=== PATIENT | male | born 1970 | race Caucasian/White ===

== ENCOUNTER 2017-11-02 10:26 | Inpatient (IN) | payer MEDICARE ==
[2017-11-02 10:52] LABS: #Eosinphils 0.1 thou/uL (0.0-0.7); #Lymphocytes 0.6 thou/uL (1.20-3.40); #Monocytes 0.7 thou/uL (0.11-0.59); %Basophils 0.4 % (0.0-1.0); %Eosinophils 1.5 % (0.0-10.0); %Lymphocytes 6.3 % (21.0-51.0); %Monocytes 7.7 % (0.0-10.0); %Neutrophils 84.1 % (42.0-75.0); Hemoglobin 12.8 g/dL (14.0-18.0); Mean Corpuscular HGB CONC 31.9 g/dL (32.0-36.0); Mean Corpuscular Hemoglobin 25.7 pg (27.0-31.0); Mean Corpuscular Volume 80.7 fl (80.0-94.0); Mean Platelet Volume 8.9 fL (7.4-10.4); Platelet Count 167 thou/uL (130-400); RBC Distribution Width 16.7 % (11.5-14.5); Red Blood Cell (RBC) Count 4.98 mill/uL (4.70-6.10); White Blood Cell (WBC) Count 9.5 thou/uL (4.8-10.8)
--- NOTE | 2017-11-02 10:56 | RAD ---
SINGLE VIEW CHEST: Date: 11/02/17 COMPARISON: 06/10/17. HISTORY: Chest pain. FINDINGS: Single view of the chest shows an enlarged but stable cardiomediastinal silhouette. Pacemaker is unch anged in position. There is no evidence of consolidation, mass, or pleural effusion. IMPRESSION: Stable cardiomegaly without acute cardiopulmonary process. POS: JAZMÍN
[2017-11-02 10:58] LABS: PTT 27.6 SEC (22.9-36.1); Prothrombin Time 13.5 SEC (12.0-14.7)
[2017-11-02 11:13] LABS: ALT (SGPT) 30 U/L (8-55); AST (SGOT) 24 U/L (5-34); Albumin 3.9 g/dL (3.5-5.0); Alkaline Phosphatase 105 U/L (40-150); Anion Gap 19 mmol/L (10-20); BUN (Urea Nitrogen) 81 mg/dL (8.9-20.6); Bilirubin, Total 0.6 mg/dL (0.2-1.2); CK (CPK) 30 U/L (30-200); Calc. Creatinine Clearance 0 mL/min (70-130); Calcium 10.9 mg/dL (7.8-10.44); Carbon Dioxide 21 mmol/L (22-29); Chloride 102 mmol/L (98-107); Estimated GFR-MDRD 9; Globulin 2.7 g/dL (2.4-3.5); Glucose 104 mg/dL (70-105); Potassium 3.7 mmol/L (3.5-5.1); Protein, Total 6.6 g/dL (6.0-8.3); Sodium 138 mmol/L (136-145)
[2017-11-02 11:17] LABS: CKMB 1.7 ng/mL (0-6.6); Troponin I 0.088 ng/mL (< 0.028)
[2017-11-02] MEDS ORDERED: Amiodarone In Dextrose 200 ML IVPB SCH ×2 (12:00→15:56)
[2017-11-02] MEDS ORDERED: Amiodarone HCl 450 MG, Admixture Fee 1 EACH in Dextrose 5% in Water 250 ML IVPB SCH ×3 (12:30)
[2017-11-02] MEDS ORDERED: Furosemide 40 MG/4 ML VIAL ONE (12:35)
--- NOTE | 2017-11-02 13:26 | CON ---
DATE OF CONSULTATION: 11/02/2017 REASON FOR CONSULTATION: Stage 5 chronic kidney disease. HISTORY OF PRESENT ILLNESS: This is a 46-year-old gentleman with a history of CKD stage 5 who presen mark to the hospital with a 1-2 day history of chest pain. The patient had aggravating or relieving f actor. Denied any nausea, vomiting or chest pain. PAST MEDICAL HISTORY: Significant for hypertension, CKD stage 5, history of CVA, history of coronary artery disease, pacemaker, and cardiac stents. HOME MEDICATIONS: List reviewed. HOSPITAL MEDICATIONS: Reviewed. ALLERGIES: Reviewed. REVIEW OF SYSTEMS: Fifteen point review of systems was performed and negative except positives noted above. General: Weakness-. Head: Headache-. Neck: No swelling or lumps. Nose: No epistaxis o r discharge. Eyes: No diplopia or pain. Respiratory: Dyspnea-. Cardiovascular: Chest pain-. Ga strointestinal: Nausea-. Genitourinary/Gynecology: Hematuria-. Musculoskeletal: No joint pain. Neuropsychiatric Systems: No suicidal ideation. No ideation. Skin: Denies any rash or ulcer. Con stitutional: No fever or chills. PHYSICAL EXAMINATION: GENERAL: Patient is awake, alert. VITAL SIGNS: Afebrile, pulse 80, breathing at 16, blood pressure 115/70. HEAD/NECK: Normocephalic. Atraumatic. EYES: EOMI. No deformity. EARS: Clear. No ulcers. NOSE: Intact. No lesions. MOUTH: Clear. No discharge. THROAT: Clear. No exudate. LUNGS: Clear. No crackles. CARDIAC: S1, S2. No rub. ABDOMEN: Benign. BS+. GENITALIA/RECTUM: Esquivel absent. BACK/EXTREMITIES: Edema 0+ Ulcer- The patient has no edema. NEUROLOGICAL: Alert and motor intact. SKIN: Rash- Bruise- LYMPHATICS: Edema- Ulcer- LABORATORY DATA: Creatinine is more than 60. ASSESSMENT AND PLAN: 1. Chronic kidney disease. No urgent indication for dialysis. 2. Hyperkalemia, improved. 3. Anemia, improved. 4. Medications based on glomerular filtration rate are appropriate. No urgent indication for dialys is.
--- NOTE | 2017-11-02 13:50 | HP ---
PRIMARY CARE PHYSICIAN: [place] call admission. The patient's primary care physician is in [place], [place]. His name plate stamper and spectrographer are also in [place], [place]. REASON FOR ADMISSION: Chest pain, ventricular tachycardia, frequent PVCs. HISTORY OF PRESENT ILLNESS: A 46-year-old male who has history of ESRD. He was on dialysis before, but he is off dialysis since 2009. He has diastolic heart failure based on our echocardiography in . This morning, when he was resting and watching TV, all of suddenly he got substernal chest pain which was radiating to left upper extremity as well as left side of neck, 7/10 in intensity, dull aching i n nature with a pressure sensation. He denies any associated nausea, vomiting, or diaphoresis. He d enies any shortness of breath. He was feeling some palpitations and that is why he called paramedics , his pain was persistent. When paramedics arrived, at that time, based on his story, they decided t o air flight on him with helicopter. He arrived to our emergency room. On the way, the patient was having ventricular tachycardia. The patient was given amiodarone and subsequently amiodarone drip wa s started in the emergency room, he was still having ongoing left-sided chest pain. The patient khadijah es any flu-like illness. He denies any fever, chills, cough. He denies any constipation, diarrhea, melena or hematochezia. He denies any urinary tract infection symptoms. He denies any orthopnea, PN D or leg swelling. He denies any syncopal episode. The patient does have a history of pacemaker, but he denies any defibrillator. After coming to ER, t he patient was having frequent PVCs and we decided to keep this patient in the hospital in the IMCU f or close monitoring. REVIEW OF SYSTEMS: The following complete review of systems was negative, unless otherwise mentioned in the HPI or below: Constitutional: Weight loss or gain, ability to conduct usual activities. Skin: Rash, itching. Eyes: Double vision, pain. ENT/Mouth: Nose bleeding, neck stiffness, pain, tenderness. Cardiovascular: Palpitations, dyspnea on exertion, orthopnea. Respiratory: Shortness of breath, wheezing, cough, hemoptysis, fever or night sweats. Gastrointestinal: Poor appetite, abdominal pain, heartburn, nausea, vomiting, constipation, or diarr hea. Genitourinary: Urgency, frequency, dysuria, nocturia. Musculoskeletal: Pain, swelling. Neurologic/Psychiatric: Anxiety, depression. Allergy/Immunologic: Skin rash, bleeding tendency. Please see my HPI for pertinent positive and negative. All other review of systems reviewed and nega tive except as mentioned in the HPI. PAST MEDICAL HISTORY: Paroxysmal atrial fibrillation, chronic anticoagulation therapy with warfarin, pacemaker placement, history of CVA in 2009 and 2010, gout, coronary artery disease with history of stent, hypertension, dyslipidemia, history of ESRD required hemodialysis at one point and currently n ot on dialysis, chronic pain disorder. PAST SURGICAL HISTORY: AV fistula in left upper extremity, appendicectomy, pacemaker placement, tons illectomy, left banding surgery. PAST PSYCHIATRIC HISTORY: Anxiety, depression, insomnia, chronic pain disorder. SOCIAL HISTORY: Patient is and lives at home with family. No history of tobacco, alcohol or illicit drug abuse. FAMILY HISTORY: Positive for coronary artery disease to both parents. Mother also had severe periph eral vascular disease. ALLERGIES: The patient is not tolerating CODEINE and MORPHINE which gives him itching. CURRENT MEDICATIONS: The patient did not bring his home medication, but based on his verbal, he is o n following medications; Ambien 10 mg p.o. at bedtime, clonidine 0.3 mg 3 times daily, hydralazine 10 mg 3 times daily, Bumex 2 mg 3 times daily, warfarin 5 mg p.o. daily, Lipitor 10 mg p.o. at bedtime, Cardizem CD 240 mg p.o. twice daily, Xanax 1 mg at bedtime, and metoprolol 100 mg p.o. b.i.d. EMERGENCY ROOM COURSE: Patient is given amiodarone drip, Lasix 80 mg IV given, aspirin 324 mg given. PHYSICAL EXAMINATION: VITAL SIGNS: Currently, blood pressure 134/70, pulse 78 and irregular, respiratory rate 18, saturati on 96% on room air, temperature 98.8, weight 98 kilograms. GENERAL: Patient is currently alert, awake, no obvious acute distress. HEAD: Normocephalic, atraumatic. EYES: Pupils round, reactive to light. Extraocular muscles intact. ENT: Oropharynx within normal limits. Moist mucous membranes. No oral lesions. No pharyngeal eryt hung or exudate. NECK: Supple, no JVD, no thyromegaly, no carotid bruit, no jugular venous distention. LUNGS: Clear to auscultation without any rhonchi or rales. CARDIAC: S1, S2 irregularly irregular. No murmur elicited, no gallop, no rub. Chest wall pacemaker site is clean and healthy without any chest wall tenderness. ABDOMEN: Soft, bowel sounds present, nontender, nondistended. No organomegaly, no mass, no suprapub ic tenderness. BACK: Examination unremarkable. No CVA tenderness. EXTREMITIES: Upper extremity; AV fistula in left upper extremity with good pulsation and good thrill . Lower extremity; trace edema noted. Good peripheral pulsation. SKIN: No skin rash. HEMATOLOGICAL SYSTEM: No lymphadenopathy. NEUROLOGIC: Nonfocal examination. The patient moves all 4 limbs. Plantar bilateral flexor. PSYCHIATRIC: Normal affect. IMAGING DATA AND SIGNIFICANT LABORATORY DATA: 1. EKG showing atrial fibrillation with RVR, ST-T changes in inferolateral lead. 2. Chest x-ray showing cardiomegaly, pulmonary vascular congestion, and pacemaker in place. 3. CBC: WBC 9.5, hemoglobin 12.8, platelets 167. INR 1.0. 4. BMP: Sodium 138, potassium 3.7, chloride 102, carbon dioxide 21, anion gap 19, BUN 81, creatinin e 6.83, glucose 104, calcium 10.9. 5. LFT: AST 24, ALT 30, alkaline phosphatase 105, albumin 3.9, CK 30, CK-MB 1.7, troponin I 0.088, BNP 1842. ASSESSMENT AND PLAN/IMPRESSION: 1. Chest pain. Patient's chest pain description sounds like atypical anginal. He has elevated trop onin. He has history of coronary artery disease with stent. He has various risk factors for coronar y artery disease as well. At this point, patient will require admission. We will continue with nitr oglycerin on p.r.n. basis. We will continue aspirin 325 mg p.o. daily. Cardiology will be consulted . We will do serial cardiac enzymes x3 and rule out acute coronary syndrome. We will obtain echocar diography to assess ejection fraction and other structural abnormality. We will control his pain wit h fentanyl p.r.n. basis. 2. Ventricular tachycardia and frequent premature ventricular contraction. This patient's rhythm wa s showing ventricular tachycardia on the flight when he was coming from scene to ER. Patient has cur rently responded well to amiodarone drip and after that his premature ventricular contractions droppe d significantly. At this point, we will keep him in IMCU. Cardiology will be consulted. Echocardio graphy will be obtained. We will check magnesium level. We will continue amiodarone drip per protoc ol and further decisions will defer to Cardiology. 3. Atrial fibrillation with rapid ventricular response. Patient does have paroxysmal atrial fibrill ation. He is on chronic anticoagulation therapy. We will check PT/INR and continue warfarin therapy . Currently, patient is on amiodarone drip. Cardiology consulted. We are going to obtain echocardi ography as well. 4. Elevated troponin. Could be related with angina versus renal failure. We will do serial cardiac enzymes x3. This patient prefers medical therapy because he does not want to go for cardiac cathete rization. He does not want his renal function to be compromised. We will try to treat medically. 5. Congestive heart failure, diastolic, acute on chronic. Patient has glomerular filtration rate of 9. He still makes urine. We will consult Nephrology and this patient may end up with dialysis very soon. Patient has been given Lasix in the emergency room. We will monitor renal function. 6. End-stage renal disease. Patient is currently in nocturnal hemodialysis. We will consult Nephro logy for further evaluation and we will start Nephro-Leslie one tablet p.o. daily. We will check parat hyroid hormone and phosphorus level tomorrow. Dialysis decision will defer to Nephrology. Currently patient already has AV fistula in case if he needs dialysis. 7. Hypertension. Currently, patient's blood pressure runs low and that is why we will hold on his a ntihypertensive medication. We will verify his home medications and start medication as tolerated. 8. Chronic pain disorder. We will continue to control his pain with fentanyl p.r.n. basis. 9. Chronic anticoagulation. We will check PT and INR and continue warfarin as per home dosage. 10. Anxiety and depression. We will verify his home dose of Chantix and we will continue Ambien at bedtime. 11. Dyslipidemia. We will continue Lipitor 10 mg p.o. at bedtime and check lipid profile tomorrow ellie solomon. 12. Deep vein thrombosis prophylaxis, heparin 5000 units subcu twice daily. 13. Gastrointestinal prophylaxis, Protonix 40 mg p.o. daily. CODE STATUS: The patient is FULL CODE. The patient's is surrogate decision maker. Disposition plan based on clinical course. We are expecting patient's stay in the hospital more than 2 midnights. Plan of care discussed with the patient in detail.
[2017-11-02] MEDS ORDERED: HYDROcodone/Acetaminophen 5/325 mg Tablet ONE (14:31)
[2017-11-02 14:49] LABS: Troponin I 0.084 ng/mL (< 0.028)
[2017-11-02] MEDS ORDERED: Acetaminophen 325 MG TAB PO PRN ×2 (15:54→15:56)
[2017-11-02] MEDS ORDERED: Ondansetron HCl/PF 4 MG/2 ML Vial IVP PRN (15:54)
[2017-11-02] MEDS ORDERED: Ondansetron ODT 4 MG TAB SL PRN (15:54)
[2017-11-02] MEDS ORDERED: Mag-Al 1200 mg/1200 mg/30 ML UDCUP PO PRN (15:56)
[2017-11-02] MEDS ORDERED: Fentanyl 100 MCG/2 ML VIAL SLOW IVP PRN (15:56)
[2017-11-02] MEDS ORDERED: hydrALAZINE 20 MG/ML VIAL SLOW IVP PRN (15:56)
[2017-11-02] MEDS ORDERED: Metoclopramide HCl 10 MG/2 ML VIAL IVP PRN (15:56)
[2017-11-02] MEDS ORDERED: Nitroglycerin 0.4 MG TAB (25 Tab Bottle) SL PRN (15:56)
[2017-11-02] MEDS ORDERED: Senokot 8.6 MG TAB PO PRN (15:56)
[2017-11-02] MEDS ORDERED: Eucerin (Mineral Oil/Petrolatum,White) 30 gm Jar TOP PRN (15:56)
[2017-11-02] MEDS ORDERED: Artificial Tears 18 DROP/0.9 ML EA EYE PRN (15:56)
[2017-11-02] MEDS ORDERED: Zolpidem Tartrate 5 MG TAB PO PRN (15:56)
[2017-11-02] MEDS ORDERED: Chloraseptic Spray 180 ml Bottle PO PRN (15:56)
[2017-11-02] MEDS ORDERED: Loperamide HCl 2 MG CAP PO PRN (15:56)
[2017-11-02] MEDS ORDERED: Milk Of Magnesia 30 ML UDCUP PO PRN (15:56)
[2017-11-02] MEDS ORDERED: Sodium Chloride 0.65% Nasal 44 ML BOT EA NARE PRN (15:56)
[2017-11-02] MEDS ORDERED: Diabetic Tussin 200 MG/10 ML UDCUP PO PRN (15:56)
[2017-11-02] MEDS ORDERED: Loratadine 10 MG TAB PO PRN (15:56)
[2017-11-02 17:21] VITALS: BMI 31.8
[2017-11-02 17:42] LABS: Bilirubin Negative (Negative); Blood, Urine Negative (Negative); Clarity CLEAR (Clear); Glucose, Urine (Dipstick) 100 mg/dL (Negative); Leukocyte Negative (Negative); Nitrite Negative (Negative); Protein, Urine (Dipstick) 300 mg/dL (Neg-Trace); Specific Gravity, Urine 1.015 (1.002-1.036); Urobilinogen 0.2 mg/dL (0.2-1.0); pH, Urine 6.5 (5.0-9.0)
[2017-11-02 17:59] LABS: Bacteria/HPF None Seen HPF (None Seen); Hyaline Casts/LPF 0-3 HYALINE CAST LPF (0-3 Hyaline); Pathc Cast-AUWi Flag 0.13 (0-2.49); RBC/HPF 0-3 HPF (0-3); Squamous Epithelial None Seen HPF (0-3); WBC/HPF 0-3 HPF (0-3)
[2017-11-02] MEDS ORDERED: Nitroglycerin 2% Ointment 1 INCH/1 GM Packet ONE (18:23)
[2017-11-02] MEDS ORDERED: Acetaminophen 1,000 MG in Premix Bag 1 BAG IVPB SCH (18:30)
[2017-11-02] MEDS: Nitroglycerin 2% Ointment 1 INCH/1 GM Packet TOP SCH (18:40)
[2017-11-02] MEDS: Heparin 5,000 UNITS/ML VIAL SC SCH (20:56)
[2017-11-02] MEDS: oxyCODONE/Acetaminophen 5 mg/325 mg Tablet PO PRN (20:56)
[2017-11-02] MEDS ORDERED: Atorvastatin Calcium 10 MG TAB PO SCH (21:00)
--- NOTE | 2017-11-02 21:07 | CON ---
CARDIOLOGY CONSULTATION NOTE DATE OF CONSULTATION: 11/02/2017 REASON FOR CONSULTATION: Mr. Dominguez is a 46-year-old gentleman previously seen and evaluated by Dr. Darleen layne, now with a recurrent chest pain at rest. HISTORY OF PRESENT ILLNESS: Mr. Dominguez is 46 years of age, has history of coronary artery disease wit h previous stent implantation. He was seen here in May with chest pain and was seen and evaluated by Dr. John. The patient had a media account executive out of town, they wish to go back to see him. The pa chinmay was doing well until this morning. He started having chest pain and then pain in the left side of his neck, 7/10 in intensity. He is having palpitations. He called the paramedics. Paramedics d ecided to air flight him with a helicopter. He arrived in the emergency room. He was given amiodaro ne for the ventricular tachycardia and PVCs. The patient is feeling better now. He has a very minim al discomfort now. The patient has a history of pacemaker insertion in the past. The patient is currently feeling much better. PAST MEDICAL HISTORY: 1. He has a history of renal failure. He is on dialysis until 2009. He said he has been able to st ay off dialysis since then. He says that the creatinine has been just right at the edge of needing d ialysis. He states that "I know one day my day is coming." 2. History of gout. MEDICATIONS: 1. Bumex. 2. Alprazolam. 3. Diltiazem CD 120 mg a day. 4. Coumadin. 5. Metoprolol 150 mg twice a day. 6. Furosemide. 7. Aspirin, not listed as being on a statin. REVIEW OF SYSTEMS: Constitutional: Positive for gout. No weight gain or loss. Vision: No changes . Hearing: No changes. Pulmonary: No shortness of breath. Gastrointestinal: No nausea, vomiting or diarrhea. Cardiovascular: As outlined above. Skin: No rashes. Neurologic: No unilateral wea kness or numbness. Psychiatric: No unusual depression or anxiety. Hematologic: No unusual bruisin g. Musculoskeletal: He has gout and he has gout in his feet. Says he is having pain now. PHYSICAL EXAMINATION: GENERAL: This is a pleasant 46-year-old gentleman in no distress. VITAL SIGNS: Blood pressure 137/64 and pulse 70. EYES: Sclerae nonicteric. MOUTH: Mucous membranes are moist. NECK: Supple. No lymphadenopathy. LUNGS: Clear. No wheezing, rales or rhonchi. CARDIAC: Normal S1 and normal S2. There is no murmur, rub or gallop. ABDOMEN: Soft and nontender. No hepatosplenomegaly. EXTREMITIES: Warm and dry. No clubbing or cyanosis. There is no edema. He has good dorsalis pedis pulses bilaterally. LABORATORY AND X-RAY FINDINGS: EKG does show some ST depression in V5 and V6. PERTINENT LABORATORY DATA: Hemoglobin is 12.8. Creatinine is 6.8. Estimated GFR is 9. Potassium i s 3.7. BNP, which is not really very meaningful. His renal failure is 1842. Troponin 0.088, which is negative for a patient with renal failure. INR is 1. ASSESSMENT: 1. Probable unstable angina. 2. History of pacemaker insertion. 3. Coronary artery disease 4. History of ventricular arrhythmias. By report, there is ventricular tachycardia. I do not see s trips of that, only some premature ventricular contractions. PLAN: 1. Continue to monitor enzymes. 2. Heparin subcu has been given. 3. Really need to strongly consider whether cardiac catheterization would be indicated. The patient is uncertain at the present time whether he wishes to do that. He understands that almost for sure he would be on dialysis following that.
[2017-11-02] MEDS ORDERED: ALPRAZolam 1 MG TAB PO SCH (23:45)
[2017-11-02] MEDS ORDERED: Zolpidem Tartrate 5 MG TAB PO SCH (23:45)
[2017-11-03] MEDS: Nitroglycerin 2% Ointment 1 INCH/1 GM Packet TOP SCH ×4 (00:11→23:15)
[2017-11-03] MEDS ORDERED: Amiodarone HCl 450 MG, Admixture Fee 1 EACH in Dextrose 5% in Water 250 ML IVPB SCH ×3 (00:15)
[2017-11-03 05:21] LABS: #Eosinphils 0.2 thou/uL (0.0-0.7); #Lymphocytes 0.8 thou/uL (1.20-3.40); #Monocytes 0.8 thou/uL (0.11-0.59); #Neutrophils 5.6 thou/uL (1.40-6.50); %Basophils 0.6 % (0.0-1.0); %Eosinophils 2.4 % (0.0-10.0); %Lymphocytes 11.2 % (21.0-51.0); %Monocytes 10.3 % (0.0-10.0); %Neutrophils 75.5 % (42.0-75.0); Hemoglobin 11.1 g/dL (14.0-18.0); Mean Corpuscular HGB CONC 32.1 g/dL (32.0-36.0); Mean Corpuscular Hemoglobin 26.1 pg (27.0-31.0); Mean Corpuscular Volume 81.3 fl (80.0-94.0); Mean Platelet Volume 9.2 fL (7.4-10.4); Platelet Count 140 thou/uL (130-400); RBC Distribution Width 16.4 % (11.5-14.5); Red Blood Cell (RBC) Count 4.26 mill/uL (4.70-6.10); White Blood Cell (WBC) Count 7.4 thou/uL (4.8-10.8)
[2017-11-03 05:26] LABS: INR-International Normal Ratio 1.1; Prothrombin Time 14.1 SEC (12.0-14.7)
[2017-11-03 05:39] LABS: ALT (SGPT) 26 U/L (8-55); AST (SGOT) 20 U/L (5-34); Albumin 3.4 g/dL (3.5-5.0); Alkaline Phosphatase 99 U/L (40-150); Anion Gap 15 mmol/L (10-20); BUN (Urea Nitrogen) 80 mg/dL (8.9-20.6); Bilirubin, Total 0.5 mg/dL (0.2-1.2); Calc. Creatinine Clearance 19 mL/min (70-130); Calcium 10.2 mg/dL (7.8-10.44); Carbon Dioxide 21 mmol/L (22-29); Cardiac Risk 4.9 (Less than 4.5); Chloride 104 mmol/L (98-107); Cholesterol 143 mg/dl (< 200 Desired); Estimated GFR-MDRD 9; Globulin 2.2 g/dL (2.4-3.5); Glucose 82 mg/dL (70-105); HDL Cholesterol 29 mg/dL (>60 Neg Risk); LDL Cholesterol, Calculated 92 mg/dL; Phosphorus 7.4 mg/dL (2.3-4.7); Potassium 3.1 mmol/L (3.5-5.1); Protein, Total 5.6 g/dL (6.0-8.3); Sodium 137 mmol/L (136-145); Triglycerides 110 mg/dL (Less than 150); Uric Acid 10.1 mg/dL (3.5-7.2)
[2017-11-03] MEDS: oxyCODONE/Acetaminophen 5 mg/325 mg Tablet PO PRN ×3 (06:35→20:50)
[2017-11-03] MEDS ORDERED: Furosemide 80 MG TAB PO PRN (07:23)
[2017-11-03] MEDS ORDERED: Potassium Chloride 20 MEQ TAB PO SCH (07:45)
[2017-11-03] MEDS ORDERED: Zolpidem Tartrate 5 MG TAB PO PRN (07:45)
[2017-11-03] MEDS: Metoprolol Tartrate 100 MG TAB PO SCH ×2 (08:22→20:48)
[2017-11-03] MEDS: Bumetanide 1 MG TAB PO SCH ×3 (08:22→20:47)
[2017-11-03] MEDS: hydrALAZINE 10 MG TAB PO SCH ×3 (08:23→20:48)
[2017-11-03] MEDS: Folic Acid/Vit B Comp W-C PO SCH (08:23)
[2017-11-03] MEDS: cloNIDine 0.3 MG TAB PO SCH ×3 (08:23→20:47)
[2017-11-03] MEDS: Allopurinol 100 MG TAB PO SCH (08:24)
[2017-11-03] MEDS ORDERED: Aspirin 81 mg Enteric Coated Tablet PO SCH (09:00)
[2017-11-03] MEDS: Aspirin 325 MG TAB PO SCH (09:19)
[2017-11-03] MEDS: Sevelamer Carbonate 800 MG TAB PO SCH ×3 (09:19→17:10)
[2017-11-03] MEDS: Heparin 5,000 UNITS/ML VIAL SC SCH ×2 (09:19→20:51)
--- NOTE | 2017-11-03 09:28 | PDOC.PN ---
- Subjective Encounter Start Date: 11/03/17 Encounter Start Time: 07:40 -: old records requested/rev Patient seen and examined. No new complaints. No overnight events no chest pain, no palpitation, on amiodaron drip pt decided not to go for cardiac cath - Objective Resuscitation Status: Resuscitation Status FULL:Full Resuscitation MAR Reviewed: Yes Vital Signs & Weight: Vital Signs (12 hours) Temp Pulse Resp BP BP BP Pulse Ox 11/03/17 08:23 79 136/82 11/03/17 07:30 97.8 F 64 16 143/81 H 11/03/17 03:06 97.9 F 72 12 132/75 95 11/03/17 00:00 98.4 F 71 14 124/67 93 L Weight Weight 214 lb I&O: 11/02/17 11/03/17 11/04/17 06:59 06:59 06:59 Intake Total 816 Output Total 1200 Balance -384 Result Diagrams: 11/03/17 04:08 11/03/17 04:08 EKG Reviewed by me: Yes (afib) Phys Exam - Physical Examination Constitutional: NAD HEENT: PERRLA, moist MMs, sclera anicteric Neck: no JVD, supple Respiratory: no wheezing, no rales, no rhonchi Cardiovascular: no significant murmur, irregular Gastrointestinal: soft, non-tender, no distention, positive bowel sounds Musculoskeletal: pulses present, edema present Neurological: non-focal, normal sensation, moves all 4 limbs Lymphatic: no nodes Psychiatric: normal affect, A&O x 3 Skin: no rash, normal turgor Dx/Plan (1) Abnormal cardiac enzyme level Code(s): R74.8 - ABNORMAL LEVELS OF OTHER SERUM ENZYMES Status: Acute (2) Chest pain Code(s): R07.9 - CHEST PAIN, UNSPECIFIED Status: Acute (3) Hypokalemia Code(s): E87.6 - HYPOKALEMIA Status: Acute (4) PVCs (premature ventricular contractions) Code(s): I49.3 - VENTRICULAR PREMATURE DEPOLARIZATION Status: Acute (5) Ventricular tachycardia Code(s): I47.2 - VENTRICULAR TACHYCARDIA Status: Acute (6) Anemia of renal disease Code(s): D63.1 - ANEMIA IN CHRONIC KIDNEY DISEASE Status: Chronic (7) Atrial fibrillation Code(s): I48.91 - UNSPECIFIED ATRIAL FIBRILLATION Status: Chronic (8) CAD (coronary artery disease) Code(s): I25.10 - ATHSCL HEART DISEASE OF ELEM CORONARY ARTERY W/O ANG PCTRS Status: Chronic (9) CKD (chronic kidney disease) stage 5, GFR less than 15 ml/min Code(s): N18.5 - CHRONIC KIDNEY DISEASE, STAGE 5 Status: Chronic (10) Chronic diastolic heart failure Code(s): I50.32 - CHRONIC DIASTOLIC (CONGESTIVE) HEART FAILURE Status: Chronic (11) Dyslipidemia Code(s): E78.5 - HYPERLIPIDEMIA, UNSPECIFIED Status: Chronic (12) Gout Code(s): M10.9 - GOUT, UNSPECIFIED Status: Chronic (13) HTN (hypertension) Code(s): I10 - ESSENTIAL (PRIMARY) HYPERTENSION Status: Chronic (14) Moderate mitral regurgitation Code(s): I34.0 - NONRHEUMATIC MITRAL (VALVE) INSUFFICIENCY Status: Chronic (15) Moderate tricuspid regurgitation Code(s): I07.1 - RHEUMATIC TRICUSPID INSUFFICIENCY Status: Chronic (16) Obesity (BMI 30.0-34.9) Code(s): E66.9 - OBESITY, UNSPECIFIED Status: Chronic (17) Secondary hyperparathyroidism of renal origin Code(s): N25.81 - SECONDARY HYPERPARATHYROIDISM OF RENAL ORIGIN Status: Chronic - Plan cont current plan of care * start heart healthy diet as pt has decided not to go for cardiac cath * continue amiodaron drip and will change to oral regimen, will defer to cardiology * add renvela * restart selected home meds * echo pending today * medication reviewed as below * symptomatic treatment * pt wanted to folllow up with his nephrology and cardiology in [place]. Review of Systems - Review of Systems ENT: negative: Ear Pain, Ear Discharge, Nose Pain, Nose Discharge, Nose Congestion, Mouth Pain, Mouth Swelling, Throat Pain, Throat Swelling, Other Respiratory: negative: Cough, Dry, Shortness of Breath, Hemoptysis, SOB with Excertion, Pleuritic Pain, Sputum, Wheezing Cardiovascular: negative: chest pain, palpitations, orthopnea, paroxysmal nocturnal dyspnea, edema, light headedness, other Gastrointestinal: negative: Nausea, Vomiting, Abdominal Pain, Diarrhea, Constipation, Melena, Hematochezia, Other Genitourinary: negative: Dysuria, Frequency, Incontinence, Hematuria, Retention , Other Musculoskeletal: negative: Neck Pain, Shoulder Pain, Arm Pain, Back Pain, Hand Pain, Leg Pain, Foot Pain, Other Skin: negative: Rash, Lesions, Rodney, Bruising, Other - Medications/Allergies Allergies/Adverse Reactions: Allergies Allergy/AdvReac Type Severity Reaction Status Date / Time codeine Allergy Intermediate Hives Verified 06/10/17 23:28 morphine Allergy Intermediate Hives Verified 06/10/17 23:28 Medications: Current Medications Acetaminophen (Tylenol) 650 mg PO Q4H PRN PRN Reason: Headache/Fever or Pain Al Hydroxide/Mg Hydroxide (Maalox) 30 ml PO Q6H PRN PRN Reason: Heartburn or Indigestion Albuterol/Ipratropium (Duoneb) 3 ml NEB [id number] PRN PRN Reason: SOB &/or Wheezing Allopurinol (Zyloprim) 100 mg PO DAILY [facility] Last Admin: 11/03/17 08:24 Dose: 100 mg Alprazolam (Xanax) 2 mg PO HS [facility] Artificial Tears (Tears Naturale) 0 drop EA EYE PRN PRN PRN Reason: Dry Eyes Aspirin (Aspirin) 325 mg PO DAILY [facility] Last Admin: 11/03/17 09:19 Dose: 325 mg Atorvastatin Calcium (Lipitor) 10 mg PO HS [facility] Last Admin: 11/02/17 20:56 Dose: 10 mg Atorvastatin Calcium (Lipitor) 20 mg PO HS [facility] Bumetanide (Bumex) 2 mg PO TID [facility] Last Admin: 11/03/17 08:22 Dose: 2 mg Clonidine (Catapres) 0.3 mg PO TID [facility] Last Admin: 11/03/17 08:23 Dose: 0.3 mg Diltiazem HCl (Cardizem Cd) 240 mg PO BID [facility] Last Admin: 11/03/17 08:23 Dose: 240 mg Fentanyl (Sublimaze) 25 mcg SLOW IVP Q4H PRN PRN Reason: Pain Furosemide (Lasix) 80 mg PO DAILYPRN PRN PRN Reason: fluid overload Guaifenesin (Robitussin Sf) 200 mg PO Q4H PRN PRN Reason: Cough Heparin Sodium (Porcine) (Heparin) 5,000 units SC BID [facility] Last Admin: 11/03/17 09:19 Dose: 5,000 units Hydralazine HCl (Apresoline) 10 mg SLOW IVP Q4H PRN PRN Reason: Systolic BP > 180 Hydralazine HCl (Apresoline) 10 mg PO TID [facility] Last Admin: 11/03/17 08:23 Dose: 10 mg Amiodarone HCl 450 mg/Miscellaneous Medication 1 each/ Dextrose/Water 259 mls @ 0 mls/hr IVPB INF [facility]; As Directed PRN Reason: Protocol Last Admin: 11/03/17 00:59 Dose: 259 mls Loperamide HCl (Imodium) 2 mg PO PRN PRN PRN Reason: Diarrhea/Loose Stools Loratadine (Claritin) 10 mg PO DAILYPRN PRN PRN Reason: Sinus Symptoms Magnesium Hydroxide (Milk Of Magnesium) 30 ml PO DAILYPRN PRN PRN Reason: Constipation Metoclopramide HCl (Reglan) 5 mg IVP Q6H PRN PRN Reason: Nausea Metoprolol Tartrate (Lopressor) 150 mg PO BID [facility] Last Admin: 11/03/17 08:22 Dose: 150 mg Mineral Oil/White Petrolatum (Eucerin Cream) 0 gm TOP BIDPRN PRN PRN Reason: Dry Skin Nitroglycerin (Nitrostat) 0.4 mg SL Q5MIN PRN PRN Reason: Chest Pain Nitroglycerin (Nitro-Bid 2% Ointment) 0.5 inch TOP Q8HR [facility] Last Admin: 11/03/17 05:17 Dose: Not Given Oxycodone/Acetaminophen (Percocet 5/325) 2 tab PO Q6H PRN PRN Reason: Pain Last Admin: 11/03/17 06:35 Dose: 2 tab Pantoprazole Sodium (Protonix) 40 mg PO 2100 [facility] Phenol (Chloraseptic [place] 180 Ml Bot) 0 ml PO PRN PRN PRN Reason: Sore Throat Senna (Senokot) 2 tab PO HSPRN PRN PRN Reason: Constipation Sevelamer Carbonate (Renvela) 800 mg PO TID[facility] Last Admin: 11/03/17 09:19 Dose: 800 mg Sodium Chloride ([place] Nasal [place] 0.65%) 0 ml EA NARE QIDPRN PRN PRN Reason: Nasal Congestion Vitamin B Complex/Vit C/Folic Acid (Nephro-Leslie Tablet) 1 tab PO DAILY [facility] Last Admin: 11/03/17 08:23 Dose: 1 tab Warfarin Sodium (Coumadin) 5 mg PO 1700 [facility] Zolpidem Tartrate (Ambien) 10 mg PO HSPRN PRN PRN Reason: Insomnia
--- NOTE | 2017-11-03 12:57 | PRG ---
DATE OF SERVICE: 11/03/2017 SUBJECTIVE: This 46-year-old gentleman being seen for stage 5 chronic kidney disease. The patient d enies any nausea, vomiting or chest pain. PHYSICAL EXAMINATION: GENERAL: On examination, patient is awake, alert. VITAL SIGNS: Afebrile, pulse 79, breathing at 16, blood pressure 136/82. HEAD/NECK: Normocephalic. Atraumatic. EYES: EOMI. No deformity. EARS: Clear. No ulcers. NOSE: Intact. No lesions. MOUTH: Clear. No discharge. THROAT: Clear. No exudate. LUNGS: Clear. No crackles. CARDIAC: S1, S2. No rub. ABDOMEN: Benign. BS+. GENITALIA/RECTUM: Esquivel absent. BACK/EXTREMITIES: Edema 0+ Ulcer- NEUROLOGICAL: Alert and motor intact. SKIN: Rash- Bruise- LYMPHATICS: Edema- Ulcer- LABORATORY DATA: Show potassium is 3.1 and creatinine 6.195. ASSESSMENT AND PLAN: 1. Stage 5 chronic kidney disease. No urgent indication for dialysis. Patient has no uremic sympto ms. 2. Anemia, stable. 3. Hypertension, stable. 4. Hypokalemia, we will give 20 mEq potassium replacement, recheck potassium. 5. Medications based on glomerular filtration rate are appropriate. I will refer the patient for a transplant evaluation to the transplant center of his choice.
--- NOTE | 2017-11-03 13:58 | PDOC.CTH ---
Cardiology Progress Note - Subjective He denies any chest pain, tightness, pressure, SOB. He is not to active and only goes to the bathroom and back he states due to severe gout. - Objective Vital Signs Temp Pulse Resp BP BP BP Pulse Ox 11/03/17 12:39 97.7 F 78 18 126/75 11/03/17 08:23 79 136/82 11/03/17 07:30 97.8 F 64 16 143/81 H 11/03/17 03:06 97.9 F 72 12 132/75 95 Weight 214 lb 11/02/17 11/03/17 11/04/17 06:59 06:59 06:59 Intake Total 816 Output Total 1200 Balance -384 - Physical Examination General/Neuro: alert & oriented x3, NAD Neck: no JVD present Lungs: CTA, unlabored respirations Heart: RRR Abdomen: NT/ND Extremities: + edema B (trace) - Telemetry Telemetry Rhythm: NSR - Labs Result Diagrams: 11/03/17 04:08 11/03/17 04:08 Troponin/CKMB CK-MB (CK-2) 1.7 ng/mL (0-6.6) 11/02/17 10:34 Troponin I 0.084 ng/mL (< 0.028) H 11/02/17 14:01 - Assessment/Plan 1. Unstable angina 2. CKD stage 5 3. PVC's versus non sustained VT, strips unavailable for review. PPM interrogation does not find any VT. 4. Presence of a PPM. Single chamber pacer in place. 5. CAD s/p stenting in the past. 6. Paroxysmal afib on chronic coumadin, subtherapeutic UINR 7. Hx of CVA in the past. PLAN: - I had a long conversation with him about risk stratification with a LHC versus medical management. - He does not want to run any risk of going into dialysis so he is not interested in a LHC at this time. - Will treat medically. Will increase his anti-anginal medications. - Will stop amiodarone as no VT seen.
[2017-11-03] MEDS ORDERED: Warfarin Sodium 5 MG TAB PO SCH (17:00)
[2017-11-03] MEDS ORDERED: Amiodarone 200 MG TAB PO SCH (21:00)
[2017-11-03] MEDS ORDERED: Zolpidem Tartrate 5 MG TAB PO SCH (21:00)
[2017-11-03] MEDS ORDERED: ALPRAZolam 1 MG TAB PO SCH ×2 (21:00)
[2017-11-03] MEDS ORDERED: Atorvastatin Calcium 20 MG TAB PO SCH (21:00)
[2017-11-04] MEDS: oxyCODONE/Acetaminophen 5 mg/325 mg Tablet PO PRN ×2 (04:32→11:39)
[2017-11-04] MEDS: Nitroglycerin 2% Ointment 1 INCH/1 GM Packet TOP SCH (05:20)
[2017-11-04 08:11] LABS: Prothrombin Time 12.9 SEC (12.0-14.7)
[2017-11-04] MEDS: Allopurinol 100 MG TAB PO SCH (08:33)
[2017-11-04] MEDS: Aspirin 325 MG TAB PO SCH (08:33)
[2017-11-04] MEDS: Sevelamer Carbonate 800 MG TAB PO SCH ×2 (08:33→12:10)
[2017-11-04] MEDS: Bumetanide 1 MG TAB PO SCH (08:33)
[2017-11-04] MEDS: Folic Acid/Vit B Comp W-C PO SCH (08:34)
[2017-11-04] MEDS: Metoprolol Tartrate 100 MG TAB PO SCH (08:34)
[2017-11-04] MEDS: cloNIDine 0.3 MG TAB PO SCH (08:35)
[2017-11-04] MEDS: hydrALAZINE 10 MG TAB PO SCH (08:35)
[2017-11-04] MEDS: Heparin 5,000 UNITS/ML VIAL SC SCH (08:37)
--- NOTE | 2017-11-04 10:50 | PDOC.PN ---
- Subjective Encounter Start Date: 11/04/17 Encounter Start Time: 09:00 Patient seen and examined. No new complaints. No overnight events - Objective Resuscitation Status: Resuscitation Status FULL:Full Resuscitation MAR Reviewed: Yes Vital Signs & Weight: Vital Signs (12 hours) Temp Pulse Resp BP BP BP Pulse Ox 11/04/17 08:35 63 130/78 11/04/17 08:33 63 130/78 11/04/17 07:58 97.6 F 63 16 104/62 11/04/17 03:44 97.7 F 60 18 126/60 94 L 11/04/17 00:00 98.0 F 69 18 106/71 96 Weight Weight 214 lb 6.4 oz I&O: 11/03/17 11/04/17 11/05/17 06:59 06:59 06:59 Intake Total 816 1685 Output Total 1200 1900 Balance -384 -215 Result Diagrams: 11/03/17 04:08 11/03/17 04:08 EKG Reviewed by me: Yes Phys Exam - Physical Examination Constitutional: NAD HEENT: PERRLA, moist MMs, sclera anicteric Neck: no JVD, supple Respiratory: no wheezing, no rales, no rhonchi Cardiovascular: RRR, no significant murmur, no rub Gastrointestinal: soft, non-tender, no distention, positive bowel sounds Musculoskeletal: no edema, pulses present Neurological: non-focal, normal sensation Lymphatic: no nodes Psychiatric: normal affect, A&O x 3 Skin: no rash, normal turgor Dx/Plan (1) Abnormal cardiac enzyme level Code(s): R74.8 - ABNORMAL LEVELS OF OTHER SERUM ENZYMES Status: Acute (2) Chest pain Code(s): R07.9 - CHEST PAIN, UNSPECIFIED Status: Acute (3) Hypokalemia Code(s): E87.6 - HYPOKALEMIA Status: Acute (4) PVCs (premature ventricular contractions) Code(s): I49.3 - VENTRICULAR PREMATURE DEPOLARIZATION Status: Acute (5) Ventricular tachycardia Code(s): I47.2 - VENTRICULAR TACHYCARDIA Status: Ruled-out (6) Anemia of renal disease Code(s): D63.1 - ANEMIA IN CHRONIC KIDNEY DISEASE Status: Chronic (7) Atrial fibrillation Code(s): I48.91 - UNSPECIFIED ATRIAL FIBRILLATION Status: Chronic (8) CAD (coronary artery disease) Code(s): I25.10 - ATHSCL HEART DISEASE OF [place] CORONARY ARTERY W/O ANG PCTRS Status: Chronic (9) CKD (chronic kidney disease) stage 5, GFR less than 15 ml/min Code(s): N18.5 - CHRONIC KIDNEY DISEASE, STAGE 5 Status: Chronic (10) Chronic diastolic heart failure Code(s): I50.32 - CHRONIC DIASTOLIC (CONGESTIVE) HEART FAILURE Status: Chronic (11) Dyslipidemia Code(s): E78.5 - HYPERLIPIDEMIA, UNSPECIFIED Status: Chronic (12) Gout Code(s): M10.9 - GOUT, UNSPECIFIED Status: Chronic (13) HTN (hypertension) Code(s): I10 - ESSENTIAL (PRIMARY) HYPERTENSION Status: Chronic (14) Moderate mitral regurgitation Code(s): I34.0 - NONRHEUMATIC MITRAL (VALVE) INSUFFICIENCY Status: Chronic (15) Moderate tricuspid regurgitation Code(s): I07.1 - RHEUMATIC TRICUSPID INSUFFICIENCY Status: Chronic (16) Obesity (BMI 30.0-34.9) Code(s): E66.9 - OBESITY, UNSPECIFIED Status: Chronic (17) Secondary hyperparathyroidism of renal origin Code(s): N25.81 - SECONDARY HYPERPARATHYROIDISM OF RENAL ORIGIN Status: Chronic - Plan cont current plan of care * medication reviewed as below * symptomatic treatment * see discharge genaro. Review of Systems - Review of Systems ENT: negative: Ear Pain, Ear Discharge, Nose Pain, Nose Discharge, Nose Congestion, Mouth Pain, Mouth Swelling, Throat Pain, Throat Swelling, Other Respiratory: negative: Cough, Dry, Shortness of Breath, Hemoptysis, SOB with Excertion, Pleuritic Pain, Sputum, Wheezing Cardiovascular: negative: chest pain, palpitations, orthopnea, paroxysmal nocturnal dyspnea, edema, light headedness, other Gastrointestinal: negative: Nausea, Vomiting, Abdominal Pain, Diarrhea, Constipation, Melena, Hematochezia, Other Genitourinary: negative: Dysuria, Frequency, Incontinence, Hematuria, Retention , Other Musculoskeletal: negative: Neck Pain, Shoulder Pain, Arm Pain, Back Pain, Hand Pain, Leg Pain, Foot Pain, Other Skin: negative: Rash, Lesions, Rodney, Bruising, Other - Medications/Allergies Allergies/Adverse Reactions: Allergies Allergy/AdvReac Type Severity Reaction Status Date / Time codeine Allergy Intermediate Hives Verified 06/10/17 23:28 morphine Allergy Intermediate Hives Verified 06/10/17 23:28 Medications: Current Medications Acetaminophen (Tylenol) 650 mg PO Q4H PRN PRN Reason: Headache/Fever or Pain Al Hydroxide/Mg Hydroxide (Maalox) 30 ml PO Q6H PRN PRN Reason: Heartburn or Indigestion Albuterol/Ipratropium (Duoneb) 3 ml NEB [id number] PRN PRN Reason: SOB &/or Wheezing Allopurinol (Zyloprim) 100 mg PO DAILY [facility] Last Admin: 11/04/17 08:33 Dose: 100 mg Alprazolam (Xanax) 2 mg PO HS [facility] Last Admin: 11/03/17 20:50 Dose: 2 mg Artificial Tears (Tears Naturale) 0 drop EA EYE PRN PRN PRN Reason: Dry Eyes Aspirin (Aspirin) 325 mg PO DAILY [facility] Last Admin: 11/04/17 08:33 Dose: 325 mg Atorvastatin Calcium (Lipitor) 20 mg PO HS [facility] Last Admin: 11/03/17 20:47 Dose: 20 mg Bumetanide (Bumex) 2 mg PO TID [facility] Last Admin: 11/04/17 08:33 Dose: 2 mg Clonidine (Catapres) 0.3 mg PO TID [facility] Last Admin: 11/04/17 08:35 Dose: 0.3 mg Diltiazem HCl (Cardizem Cd) 240 mg PO BID [facility] Last Admin: 11/04/17 08:33 Dose: 240 mg Fentanyl (Sublimaze) 25 mcg SLOW IVP Q4H PRN PRN Reason: Pain Furosemide (Lasix) 80 mg PO DAILYPRN PRN PRN Reason: fluid overload Guaifenesin (Robitussin Sf) 200 mg PO Q4H PRN PRN Reason: Cough Heparin Sodium (Porcine) (Heparin) 5,000 units SC BID [facility] Last Admin: 11/04/17 08:37 Dose: Not Given Hydralazine HCl (Apresoline) 10 mg SLOW IVP Q4H PRN PRN Reason: Systolic BP > 180 Hydralazine HCl (Apresoline) 10 mg PO TID [facility] Last Admin: 11/04/17 08:35 Dose: 10 mg Loperamide HCl (Imodium) 2 mg PO PRN PRN PRN Reason: Diarrhea/Loose Stools Loratadine (Claritin) 10 mg PO DAILYPRN PRN PRN Reason: Sinus Symptoms Magnesium Hydroxide (Milk Of Magnesium) 30 ml PO DAILYPRN PRN PRN Reason: Constipation Metoclopramide HCl (Reglan) 5 mg IVP Q6H PRN PRN Reason: Nausea Metoprolol Tartrate (Lopressor) 150 mg PO BID [facility] Last Admin: 11/04/17 08:34 Dose: 150 mg Mineral Oil/White Petrolatum (Eucerin Cream) 0 gm TOP BIDPRN PRN PRN Reason: Dry Skin Nitroglycerin (Nitrostat) 0.4 mg SL Q5MIN PRN PRN Reason: Chest Pain Nitroglycerin (Nitro-Bid 2% Ointment) 0.5 inch TOP Q8HR [facility] Last Admin: 11/04/17 05:20 Dose: Not Given Oxycodone/Acetaminophen (Percocet 5/325) 2 tab PO Q6H PRN PRN Reason: Pain Last Admin: 11/04/17 04:32 Dose: 2 tab Pantoprazole Sodium (Protonix) 40 mg PO 2100 [facility] Last Admin: 11/03/17 20:47 Dose: 40 mg Phenol (Chloraseptic [place] 180 Ml Bot) 0 ml PO PRN PRN PRN Reason: Sore Throat Senna (Senokot) 2 tab PO HSPRN PRN PRN Reason: Constipation Sevelamer Carbonate (Renvela) 800 mg PO TID-[facility] Last Admin: 11/04/17 08:33 Dose: 800 mg Sodium Chloride ([place] Nasal [place] 0.65%) 0 ml EA NARE QIDPRN PRN PRN Reason: Nasal Congestion Vitamin B Complex/Vit C/Folic Acid (Nephro-Leslie Tablet) 1 tab PO DAILY [facility] Last Admin: 11/04/17 08:34 Dose: 1 tab Warfarin Sodium (Coumadin) 5 mg PO 1700 [facility] Last Admin: 11/03/17 17:10 Dose: 5 mg Zolpidem Tartrate (Ambien) 10 mg PO HSPRN PRN PRN Reason: Insomnia Last Admin: 11/03/17 20:50 Dose: 10 mg
--- NOTE | 2017-11-04 11:24 | PRG ---
DATE OF SERVICE: 11/04/2017 SUBJECTIVE: This is a 46-year-old gentleman being seen for stage 5 chronic kidney disease. The jimmie ent denies any nausea, vomiting or chest pain. PHYSICAL EXAMINATION: GENERAL: Patient is awake, alert. VITAL SIGNS: Afebrile, pulse 63, breathing at 16, blood pressure 130/78. OBJECTIVE: See above. Awake, alert, in no acute distress. GENERAL APPEARANCE AND MENTAL STATUS: Fair. HEAD/NECK: Normocephalic. Atraumatic. EYES: EOMI. No deformity. EARS: Clear. No ulcers. NOSE: Intact. No lesions. MOUTH: Clear. No discharge. THROAT: Clear. No exudate. LUNGS: Clear. No crackles. CARDIAC: S1, S2. No rub. ABDOMEN: Benign. BS+. GENITALIA/RECTUM: Esquivel absent. BACK/EXTREMITIES: Edema 0+ Ulcer- NEUROLOGICAL: Alert and motor intact. SKIN: Rash- Bruise- LYMPHATICS: Edema- Ulcer- LABORATORY: Hemoglobin 11.1, creatinine 6.9. ASSESSMENT AND PLAN: 1. Stage 5 chronic kidney disease. No urgent indication for dialysis. 2. Hypokalemia, would recommend checking potassium. 3. Anemia, stable. 4. Medications based on glomerular filtration rate are appropriate. [facility].
[2017-11-04 11:39] VITALS: BP 113/65; TEMP 97.5
--- NOTE | 2017-11-04 12:23 | PDOC.CTH ---
Cardiology Progress Note - Subjective He is doing well. No chest pain, tightness pressure. He has been walking around the hallways and doing well. - Objective Vital Signs Temp Pulse Resp BP BP BP BP 11/04/17 11:38 97.5 F L 61 16 113/65 11/04/17 08:35 63 130/78 11/04/17 08:33 63 130/78 11/04/17 08:30 97.6 F 63 18 11/04/17 07:58 97.6 F 63 16 104/62 11/04/17 03:44 97.7 F 60 18 126/60 Pulse Ox 11/04/17 11:38 11/04/17 08:35 11/04/17 08:33 11/04/17 08:30 11/04/17 07:58 11/04/17 03:44 94 L Weight 214 lb 6.4 oz 11/03/17 11/04/17 11/05/17 06:59 06:59 06:59 Intake Total 816 1685 240 Output Total 1200 1900 Balance -384 -215 240 - Physical Examination General/Neuro: alert & oriented x3, NAD Neck: no JVD present Lungs: CTA, unlabored respirations Heart: RRR Abdomen: NT/ND Extremities: other: (no edema.) - Telemetry Telemetry Rhythm: NSR - Labs Result Diagrams: 11/03/17 04:08 11/03/17 04:08 Troponin/CKMB CK-MB (CK-2) 1.7 ng/mL (0-6.6) 11/02/17 10:34 Troponin I 0.084 ng/mL (< 0.028) H 11/02/17 14:01 - Assessment/Plan 1. Unstable angina 2. CKD stage 5 3. PVC's versus non sustained VT, strips unavailable for review. PPM interrogation does not find any VT. 4. Presence of a PPM. Single chamber pacer in place. 5. CAD s/p stenting in the past. 6. Paroxysmal afib on chronic coumadin, subtherapeutic INR 7. Hx of CVA in the past. PLAN: - He will follow up with his Mid Level Game Designer next week as scheduled. - He may be discharged home.
--- NOTE | 2017-11-04 12:25 | DIS ---
DATE OF ADMISSION: 11/02/2017 DATE OF DISCHARGE: 11/04/2017 PRIMARY CARE PHYSICIAN: Dr. Tracey. DISCHARGE DISPOSITION: Home. PRIMARY DISCHARGE DIAGNOSES: 1. Chest pain, likely due to atypical angina. 2. Frequent premature ventricular contraction. 3. Demand ischemia. SECONDARY DISCHARGE DIAGNOSES: Paroxysmal atrial fibrillation, chronic anticoagulation with warfarin , chronic diastolic heart failure, ESRD, hypertension, chronic pain disorder, anxiety and depression, anemia of renal disease, secondary hyperparathyroidism of renal origin, dyslipidemia. PRIMARY PROCEDURE/OPERATION: None. RADIOLOGICAL INVESTIGATION: Chest x-ray was normal. Echocardiography result is pending. SIGNIFICANT LABORATORY DATA: WBC 7.4, hemoglobin 11.1, platelets 140. INR 1.0. Sodium 137, potass[place] um 3.1, BUN 80, creatinine 6.95. Uric acid 10.1. Phosphorus 7.4, magnesium 2.0. Liver enzymes norm al. Troponin 0.084. PTH 1243, LDL 92. TSH 2.77. Urinalysis unremarkable. DISCHARGE MEDICATIONS: Allopurinol 100 mg p.o. daily, Xanax 2 mg p.o. at bedtime, aspirin 325 mg p.o . daily, Lipitor 20 mg p.o. at bedtime, Bumex 2 mg p.o. t.i.d., clonidine 0.3 mg p.o. t.i.d., Cardize m-CD 240 mg p.o. b.i.d., Nephro-Leslie one tablet p.o. daily, Lasix 80 mg p.o. daily p.r.n., hydralazin e 10 mg p.o. t.i.d., Imdur 30 mg p.o. daily, Lopressor 150 mg p.o. b.i.d., Percocet one tablet q.6 ho urly p.r.n., Protonix 40 mg p.o. daily, Renvela 800 mg p.o. t.i.d., warfarin 5 mg p.o. daily, Ambien 10 mg p.o. at bedtime p.r.n. CONTRAINDICATIONS: None. CODE STATUS: FULL CODE. INPATIENT CONSULTANTS: Dr. Valenzuela and Dr. John were following while in hospital. Dr. Paz was fol lowing while in the hospital. ALLERGIES: CODEINE AND MORPHINE. DISCHARGE PLAN: Post hospital, the patient will follow up with primary care physician. Patient has appointment with his shoemaker apprentice and machine cleaner tomorrow at 9:00 a.m. HOSPITAL COURSE: This is a 46-year-old male, who was admitted by me on 11/02/2017. Please see my HP I for further details. Patient was having chest pain at home, paramedics were called, and based on t heir assessment, they suspected ventricular tachycardia and that is why the patient was air flighted to our hospital. There was no strip available, but when we interrogated his pacemaker, there was no evidence of ventricular tachycardia, but he was having frequent PVCs. Initially, he was treated with amiodarone drip. Subsequently, amiodarone drip was discontinued. We continued all his home medicat ions. Once we started his Cardizem-CD and metoprolol, his PVCs resolved. His chest pain resolved. Cardiology was suspecting atypical anginal and that is why they recommended cardiac catheterization, but this patient does not want to go for cardiac catheterization, because he does not want to take ch ance of cardiac catheterization-related nephrotoxicity and he wanted to treat his condition medically . We ordered echocardiography on the day of admission, but unfortunately it was not done by the time of discharge, so result is pending. At this point, the patient has appointment with his own nephrolo gist and shoemaker apprentice tomorrow and he does not want to miss that appointment and he wants to go home later on today. Currently, he is chest pain free. He has secondary hyperparathyroidism of renal anna gin and that is why we prescribed Renvela. We are also suspecting his noncompliance with the treatme nt given his INR is subtherapeutic. The patient education given about compliance with medical treatm ent and healthy lifestyle measures discussed with the patient. Today, patient wants to go home and a ll new medication prescriptions sent to his pharmacy. We will just do Imdur upon discharge. The res t of medication he will continue as per previous. The patient is seen and examined at bedside today. Please see my progress note from today for furthe r details.
== END 2017-11-04 13:57 | disposition home or self-care (01) | DRG 303 ==
LOC: ERS 10:26 → 2NO 12:02
PROVIDERS: ADMIT Internal Medicine; ATTEND Internal Medicine
DX: I25.118 Atherosclerotic heart disease of native coronary artery with other forms of angina pectoris (principal); I13.2 Hypertensive heart and chronic kidney disease with heart failure and with stage 5 chronic kidney disease, or end stage renal disease; N18.5 Chronic kidney disease, stage 5; N25.81 Secondary hyperparathyroidism of renal origin; I36.1 Nonrheumatic tricuspid (valve) insufficiency; I50.32 Chronic diastolic (congestive) heart failure; I49.3 Ventricular premature depolarization; I48.0 Paroxysmal atrial fibrillation; G89.29 Other chronic pain; F41.9 Anxiety disorder, unspecified; F32.9 Major depressive disorder, single episode, unspecified; D63.1 Anemia in chronic kidney disease; E78.5 Hyperlipidemia, unspecified; E87.6 Hypokalemia; E66.9 Obesity, unspecified; I34.0 Nonrheumatic mitral (valve) insufficiency; M1A.9XX0 Chronic gout, unspecified, without tophus (tophi); Z91.14 Patient's other noncompliance with medication regimen; Z86.73 Personal history of transient ischemic attack (TIA), and cerebral infarction without residual deficits; Z88.5 Allergy status to narcotic agent; Z79.01 Long term (current) use of anticoagulants; Z79.899 Other long term (current) drug therapy; Z95.0 Presence of cardiac pacemaker; Z95.5 Presence of coronary angioplasty implant and graft
CPT/HCPCS: 36415; 71045; 80053; 80061; 81001; 82550; 82553; 83735; 83880; 83970; 84100; 84443; 84484; 84550; 85025; 85610; 85730; 93005; 96365; 96366; 96375; 96376; J0131; J0282; J1644; J1940; J7070

== ENCOUNTER 2018-09-22 10:04 | Day surgery (SDC) | payer MEDICARE ==
[2018-09-22] MEDS ORDERED: Fentanyl 100 MCG/2 ML VIAL ONE (10:40)
[2018-09-22] MEDS ORDERED: Midazolam HCl 2 mg/2 ml Vial ONE (10:40)
[2018-09-22] MEDS ORDERED: Sodium Chloride 0.9% 10 ML ONE (10:41)
[2018-09-22 12:13] VITALS: BP 132/77; TEMP 98.4
--- NOTE | 2018-09-22 16:56 | SPC ---
LEFT UPPER EXTREMITY FISTULOGRAM: 09/22/18 HISTORY: Left arm pain and swelling. group home AV fistula left upper extremity. FLUORO TIME: 1.5 minutes. MEDICATION: 1 mg versed, IV. FINDINGS: After explaining the procedure and answering all questions, the left upper extremity was prepped and draped in the usual sterile fashion. Sterile technique, buffered local anesthesia and a 22 gauge need le were used to carefully access the left upper arm cephalic dialysis fistula. A 4 [place] micropunctu re sheath was placed for serial imaging. There is marked dilatation and partial calcification of the cephalic vein fistula. Vascular coils overlie the soft tissues of the lateral aspect of the upper arm . Hemostasis clips are also present from prior surgeries. Vascular stent at the junction of the cepha lic vein to the subclavian vein. The venous outflow is widely patent. Superior vena cava is patent. L eft subclavian vein is also shown to be dilated. Reflux angiography of the arterial inflow was not possible due to patient tenderness, significant vas cular dilatation, and vigorous arterial inflow. The sheath was removed and hemostasis obtained using direct pressure. Patient tolerated the procedure well and was returned in unchanged condition. IMPRESSION: Widely patent and very dilated left upper arm cephalic dialysis fistula. Partial calcification. Cause for dilatation and increased pressures is not evident. Of special interest is that the left subclavian vein is also markedly dilated. POS: [facility]
[2018-09-23] MEDS ORDERED: Heparin 1,000 UNITS/ML VIAL ONE (14:57)
== END 2018-09-22 12:25 ==
LOC: SPEC 10:04
PROVIDERS: ATTEND Internal Medicine Nephrology
PROC: B51W1ZZ Fluoroscopy of Dialysis Shunt/Fistula using Low Osmolar Contrast (ICD-10-PCS; principal; 2018-09-22)
DX: M79.602 Pain in left arm (principal); T82.898A Other specified complication of vascular prosthetic devices, implants and grafts, initial encounter; I12.0 Hypertensive chronic kidney disease with stage 5 chronic kidney disease or end stage renal disease; N18.6 End stage renal disease; I48.91 Unspecified atrial fibrillation; E78.5 Hyperlipidemia, unspecified; I69.354 Hemiplegia and hemiparesis following cerebral infarction affecting left non-dominant side; Z79.01 Long term (current) use of anticoagulants; Z79.899 Other long term (current) drug therapy; Z88.5 Allergy status to narcotic agent; Z99.2 Dependence on renal dialysis
CPT/HCPCS: 36901; C1769; J1644; J2250; J3010

== ENCOUNTER 2018-09-28 15:14 | Inpatient (IN) | payer MEDICARE ==
[2018-09-28 15:31] LABS: #Eosinphils 0.1 thou/uL (0.0-0.7); #Lymphocytes 0.8 thou/uL (1.20-3.40); #Monocytes 0.5 thou/uL (0.11-0.59); %Basophils 0.3 % (0.0-1.0); %Lymphocytes 10.3 % (21.0-51.0); %Monocytes 6.8 % (0.0-10.0); %Neutrophils 80.7 % (42.0-75.0); Hemoglobin 9.7 g/dL (14.0-18.0); Mean Corpuscular HGB CONC 31.5 g/dL (32.0-36.0); Mean Corpuscular Hemoglobin 25.4 pg (27.0-31.0); Mean Corpuscular Volume 80.8 fL (78.0-98.0); Mean Platelet Volume 7.9 fL (7.4-10.4); Platelet Count 203 thou/uL (130-400); RBC Distribution Width 16.8 % (11.5-14.5); Red Blood Cell (RBC) Count 3.82 mill/uL (4.70-6.10); White Blood Cell (WBC) Count 7.4 thou/uL (4.8-10.8)
[2018-09-28 15:39] LABS: INR-International Normal Ratio 1.3; PTT 39.6 SEC (22.9-36.1); Prothrombin Time 16.6 SEC (12.0-14.7)
[2018-09-28 15:50] LABS: Troponin I 0.014 ng/mL (< 0.028)
[2018-09-28 15:55] LABS: ALT (SGPT) 15 U/L (8-55); AST (SGOT) 19 U/L (5-34); Albumin 3.2 g/dL (3.5-5.0); Alkaline Phosphatase 203 U/L (40-150); Anion Gap 13 mmol/L (10-20); BUN (Urea Nitrogen) 62 mg/dL (8.9-20.6); Bilirubin, Total 0.4 mg/dL (0.2-1.2); Calc. Creatinine Clearance 0 mL/min (70-130); Calcium 8.2 mg/dL (7.8-10.44); Carbon Dioxide 29 mmol/L (22-29); Chloride 100 mmol/L (98-107); Estimated GFR-MDRD 8; Globulin 2.1 g/dL (2.4-3.5); Glucose 103 mg/dL (70-105); Potassium 4.5 mmol/L (3.5-5.1); Protein, Total 5.3 g/dL (6.0-8.3); Sodium 137 mmol/L (136-145)
--- NOTE | 2018-09-28 16:05 | CT ---
NONCONTRAST CT HEAD: Date: 09/28/18 HISTORY: Level I stroke alert. Patient with left-sided facial droop and left-sided deficits, blurred vision. COMPARISON: 09/09/18. FINDINGS: There is no evidence of a hemorrhage, acute infarction, mass effect, or midline shift. Low density fo cus seen in the left aspect of the liat. This is likely artifact given linear density extending throu gh this region as well. Mild cerebral volume loss is present, similar to the prior study. Ventricular system is normal in size, shape, and position. Visualized paranasal sinuses and mastoid a ir cells are clear. Calvarial structures are intact. IMPRESSION: 1. No acute intracranial abnormality is demonstrated. 2. Stable mild cerebral volume loss. Above findings were discussed with Eliane Aguirre in the emergency department on 09/28/18 at 1526 hours. CODE CR. POS: [facility]
[2018-09-28] MEDS ORDERED: Morphine 4 MG/ML VIAL ONE (16:10)
[2018-09-28] MEDS ORDERED: Ondansetron PF 4 MG/2 ML Vial ONE (16:10)
[2018-09-28 16:15] LABS: CK (CPK) 37 U/L (30-200)
[2018-09-28 16:40] LABS: Base Excess-Venous 3.8 mmol/L (0 (+/- 2.5)); Bicarbonate (HCO3v) 30.1 mmol/L (22.0-29.0); CO2 Tension (PvCO2) 52.7 mmHg (41.0-51.0); Calcium, Ionized 1.14 mmol/L (1.12-1.32); Hemoglobin - Calc 10.9 g/dL (12.0-18.0); O2 Tension (PvO2) 32.4 mmHg (35.0-45.0); Potassium 4.1 mmol/L (3.4-4.7); T. Carbon Dioxide 31.7 mmol/L (1.0-85.0); pH (Venous) 7.364 (7.35-7.45)
[2018-09-28] MEDS ORDERED: Iopamidol 370 76% 100 ML VIAL ONE (16:58)
--- NOTE | 2018-09-28 17:02 | CT ---
CT ANGIOGRAM HEAD WITH IV CONTRAST AND 3D RECONSTRUCTIONS CT ANGIOGRAM NECK WITH IV CONTRAST AND 3D RECONSTRUCTIONS 09/28/18 HISTORY: Left sided facial droop, left sided deficits, blurred vision. Patient unable to talk. CT ANGIOGRAM HEAD: COMPARISON: 01/23/16. FINDINGS: There is a type origin of the right posterior cerebral artery which is patent. The distal bilat eral vertebral arteries, basilar arteries, and left posterior cerebral artery are patent. Atherosclerotic vascular calcifications are seen in the carotid siphons. However, the distal bilatera l internal carotid arteries are patent. The bilateral middle cerebral and anterior cerebral arteries are patent. There is no focal stenosis or branch occlusion appreciated. No aneurysm is seen within the limitation s of the technique of this exam. There is mild mucosal thickening seen in each maxillary antrum. Mastoid air cells are clear. CTA NECK: COMPARISON: None available. FINDINGS: There is a normal arrangement of the great vessels at the aortic arch. Atherosclerotic vascular calci fications are present, but no focal significant stenosis is present involving the great vessels. The bilateral subclavian artery as well as the innominate artery and bilateral common carotid arteries ar e patent. There is less than 50% maximal stenosis involving the left internal carotid artery by NASCET criteria . There is focal prominent calcifications within the proximal right internal carotid artery which limit s evaluation of lumen and assessment of degree of narrowing. It is difficult due to dense calcificati ons. There is otherwise no focal narrowing involving the right internal carotid artery by NASCET cri teria, although there may be greater than 50% narrowing of the proximal internal artery at the level of the calcifications, although this is difficult to further determine. Prominent vascular calcifications are seen at the origin of each vertebral artery limiting evaluation of the lumen. There are also prominent calcifications seen along the course of the cervical left [place] tebral artery limiting evaluation of the lumen at multifocal areas along the course of the left verte bral artery. The visualized vertebral arteries bilaterally are otherwise patent. The basilar artery i s patent. The visualized upper lung zones are clear. A right subclavian cardiac pacemaking device is noted in place. There is partial visualization of a cephalic vein outflow from the left upper extremity arterial veno us dialysis fistula with stent seen in the distal portion of the venous outflow. The visualized porti on of the fistula is dilated with dilatation of the axillary vein as well. IMPRESSION: 1. Limited evaluation of the degree of luminal narrowing involving the proximal right internal c arotid artery secondary to the vascular calcifications in this region. There is otherwise less than 5 0% maximal stenosis in the bilateral internal carotid arteries. 2. Limited evaluation of the origins of each vertebral artery as well as multifocal areas along the course of the left vertebral artery secondary to prominent vascular calcifications. However, the vertebral arteries are codominant, and there is otherwise no focal narrowing visualized. 3. No focal stenosis or branch occlusion involving the [place] or vertebrobasilar syste m. 4. Dilatation of the cephalic vein outflow of the left upper extremity arteriovenous dialysis fi stula with stent seen in the distal portion of the cephalic vein outflow. 5. Above findings were discussed with Mirta Aguirre in the Emergency Department on 09/28/18 at 1601 hours. POS: [facility]
[2018-09-28 19:29] LABS: Bilirubin Negative (Negative); Blood, Urine Small (Negative); Clarity CLEAR (Clear); Glucose, Urine (Dipstick) Negative (Negative); Leukocyte Trace (Negative); Nitrite Negative (Negative); Protein, Urine (Dipstick) 100 mg/dL (Neg-Trace); Specific Gravity, Urine 1.009 (1.002-1.036); Urobilinogen 0.2 mg/dL (0.2-1.0); pH, Urine 7.5 (5.0-9.0)
[2018-09-28 19:31] LABS: Bacteria/HPF None Seen HPF (None Seen); Hyaline Casts/LPF 0-3 HYALINE CAST LPF (0-3 Hyaline); Pathc Cast-AUWi Flag 0.29 (0-2.49); RBC/HPF 0-3 HPF (0-3); Squamous Epithelial 0-3 HPF (0-3)
[2018-09-28] MEDS ORDERED: Acetaminophen 325 MG TAB PO PRN (21:22)
[2018-09-28] MEDS ORDERED: Ondansetron ODT 4 MG TAB SL PRN (21:22)
[2018-09-28] MEDS ORDERED: Ondansetron PF 4 MG/2 ML Vial IVP PRN (21:22)
[2018-09-28] MEDS ORDERED: HYDROcodone/Acetaminophen 5/325 mg Tablet PO PRN ×2 (21:22)
[2018-09-28 22:02] LABS: Troponin I Less than 0.010 ng/mL (< 0.028)
[2018-09-29] MEDS ORDERED: Senokot S 8.6-50 MG TAB PO PRN (01:10)
[2018-09-29] MEDS ORDERED: Bisacodyl 5 MG TAB PO PRN (01:10)
[2018-09-29] MEDS ORDERED: Zolpidem Tartrate 5 MG TAB PO PRN (01:21)
--- NOTE | 2018-09-29 01:50 | CON ---
DATE OF CONSULTATION: CONSULTING PHYSICIAN: Debbie Enrique MD REQUESTING PHYSICIAN: ER physician. REASON FOR CONSULTATION: Need for maintenance dialysis treatment. IMPRESSION: 1. End-stage renal disease, on peritoneal dialysis. 2. Recurrent cerebrovascular accident in the context of paroxysmal atrial fibrillation. 3. Paroxysmal atrial fibrillation. 4. Chronic anticoagulation, on Coumadin. 5. Syncope, query cause. PLAN: 1. My suspicion is that this patient's syncope may have something to do with labile hemodynamics in view of low blood pressure. Therefore, we will recommend dialyzing this patient with a lower concentration of dialysate. 2. Monitor the hemodynamics and avoid hypotension. We will deescalate antihypertensive medication in this patient to allow improvement in the hemodynamics of this patient. 3. Further management will be dependent on the clinical course. HISTORY: This is a 47-year-old gentleman who has had multiple strokes in the past at [facility]. The patient according to him was watching TV and the next thing was he found himself inside the ambulance on his way to the hospital. The patient invariably passed out. The patient does give a history of possible sleep apnea. As a result of the need for maintenance dialysis, decision has been taken to involve Renal in the management of this case. PAST MEDICAL HISTORY: Significant for atrial fibrillation, chronic coagulopathy, CVA occurred multiple times, coronary artery disease, status post pacemaker. MEDICATIONS: Reviewed as documented on [email or web address]. ALLERGIES: TO CODEINE AND MORPHINE. SOCIAL HISTORY: No alcohol, no tobacco or illicit drug use. FAMILY HISTORY: Significant for heart disease. REVIEW OF SYSTEMS: As documented in the body of history. All other systems were reviewed and were found not to be significantly related to presenting illness. PHYSICAL EXAMINATION: GENERAL: The patient was found not to be in any obvious distress. VITAL SIGNS: Blood pressure of 96/66, respiratory rate of 18, O2 saturation of 96%. HEENT: Unremarkable. CARDIOVASCULAR: First and second heart sounds were heard. RESPIRATORY: Clear to auscultation. DIGESTIVE SYSTEM: Revealed a benign abdomen with positive bowel sounds. EXTREMITIES: No peripheral edema. SKIN: No new gross rash. LYMPHATICS: No peripheral lymphadenopathy. SUMMARY: A 47-year-old gentleman with end-stage renal disease, who presented here with mental status change. All the imaging studies so far have not shown any evidence of new CVA. Thank you for this consultation. We will follow with you. Job ID: [id number]
[2018-09-29] MEDS: oxyCODONE 5 MG TAB PO PRN ×5 (03:57→22:24)
[2018-09-29 04:33] VITALS: BMI 35.7
[2018-09-29 06:01] LABS: #Eosinphils 0.2 thou/uL (0.0-0.7); #Lymphocytes 0.6 thou/uL (1.20-3.40); #Monocytes 0.5 thou/uL (0.11-0.59); #Neutrophils 3.7 thou/uL (1.40-6.50); %Basophils 0.7 % (0.0-1.0); %Eosinophils 3.8 % (0.0-10.0); %Lymphocytes 12.3 % (21.0-51.0); %Monocytes 9.9 % (0.0-10.0); %Neutrophils 73.3 % (42.0-75.0); Hemoglobin 8.5 g/dL (14.0-18.0); Mean Corpuscular HGB CONC 31.7 g/dL (32.0-36.0); Mean Corpuscular Hemoglobin 25.5 pg (27.0-31.0); Mean Corpuscular Volume 80.3 fL (78.0-98.0); Mean Platelet Volume 7.6 fL (7.4-10.4); Platelet Count 175 thou/uL (130-400); RBC Distribution Width 16.5 % (11.5-14.5); Red Blood Cell (RBC) Count 3.32 mill/uL (4.70-6.10)
[2018-09-29 06:16] LABS: Anion Gap 13 mmol/L (10-20); BUN (Urea Nitrogen) 60 mg/dL (8.9-20.6); Calc. Creatinine Clearance 19 mL/min (70-130); Calcium 8.4 mg/dL (7.8-10.44); Carbon Dioxide 26 mmol/L (22-29); Cardiac Risk 5.1 (Less than 4.5); Chloride 101 mmol/L (98-107); Cholesterol 82 mg/dl (< 200 Desired); Estimated GFR-MDRD 8; Glucose 96 mg/dL (70-105); HDL Cholesterol 16 mg/dL (>60 Neg Risk); LDL Cholesterol, Calculated 53 mg/dL; Potassium 4.1 mmol/L (3.5-5.1); Sodium 136 mmol/L (136-145); Triglycerides 65 mg/dL (Less than 150)
[2018-09-29] MEDS ORDERED: Famotidine 20 MG TAB PO SCH ×2 (09:00→21:00)
[2018-09-29] MEDS ORDERED: cloNIDine 0.3 MG TAB PO SCH (09:00)
[2018-09-29] MEDS ORDERED: Ondansetron ODT 4 MG TAB SL PRN (09:24)
[2018-09-29] MEDS ORDERED: Ondansetron PF 4 MG/2 ML Vial IVP PRN (09:24)
[2018-09-29] MEDS ORDERED: hydrALAZINE 20 MG/ML VIAL SLOW IVP PRN (09:24)
[2018-09-29] MEDS: Cinacalcet HCl 30 MG TAB PO SCH (09:27)
[2018-09-29] MEDS: Bumetanide 1 MG TAB PO SCH ×3 (09:27→21:37)
[2018-09-29] MEDS: Metoprolol Tartrate 100 MG TAB PO SCH ×2 (09:28→21:40)
[2018-09-29] MEDS: ALPRAZolam 1 MG TAB PO SCH ×2 (09:28→21:35)
[2018-09-29] MEDS: Sevelamer Carbonate 800 MG TAB PO SCH ×3 (09:28→16:00)
[2018-09-29] MEDS: Multivitamin W/ Minerals 1 TAB PO SCH (09:28)
[2018-09-29] MEDS: cloNIDine 0.1 MG TAB PO SCH ×3 (09:29→21:40)
[2018-09-29] MEDS ORDERED: Aspirin 81 mg Enteric Coated Tablet PO SCH (11:45)
--- NOTE | 2018-09-29 14:00 | HP ---
PRIMARY CARE PROVIDER: Dr. Felipe Rashid. CHIEF COMPLAINT: Left-sided weakness. HISTORY OF PRESENT ILLNESS: This is a 47-year-old male, who presents to [facility] emergency Department and transferred from inpatient rehabilitation, where the patient has been receiving rehabilitation status post recent ischemic CVA, status post tPA treatment in August 2018. The patient states he had been slated to return home and discharged from inpatient rehabilitation on 09/29/2018, when he suddenly developed progressive weakness of his left leg, where he had been previously able to move his ankle and walk with a cane. The patient admits to a longstanding history of multiple CVAs x4 with left-sided deficits and intermittent difficulty with speech. The patient states he is right-hand dominant and had been working well with the physical and occupational therapy at inpatient rehabilitation. The patient admitted to mild dysarthria, which has since improved after arriving to the Stroke Unit. The patient also admits to some visual disturbance of his left eye, where he sees shapes and colors, but not clear vision as he had previously noted. The patient states he is compliant with his chronic medication regimen including chronic anticoagulation with Coumadin. The patient also states he had been taking aspirin on a daily basis, but is unsure if he was receiving it at the rehab. In the emergency room, the patient underwent CT imaging of the brain showing no acute process. CT angiogram of the head and neck also revealed no acute process with less than 50% stenosis of the right internal carotid artery system. The patient received Zofran and morphine sulfate and was referred to the Stroke Unit for further evaluation. PAST MEDICAL HISTORY: 1. Ischemic CVA, status post tPA, 08/2018. 2. Multiple CVAs with residual left-sided weakness. 3. End-stage renal disease with peritoneal dialysis. 4. Congestive heart failure. 5. Coronary artery disease, status post cardiac stent placement. 6. Paroxysmal atrial fibrillation with current pacemaker on chronic anticoagulation with Coumadin. 7. History of gout. 8. Chronic narcotic therapy. 9. Dyslipidemia. 10. History of AV fistula thrombosis with subsequent thrombectomy. PAST SURGICAL HISTORY: 1. Status post placement of left upper extremity AV fistula with subsequent thrombectomy. 2. Status post appendectomy. 3. Status post pacemaker placement. 4. Status post peritoneal dialysis catheter placement. 5. Status post lap band surgery. 6. Status post tonsillectomy. CURRENT MEDICATIONS: 1. Xanax 2 mg p.o. b.i.d. 2. Lipitor 10 mg p.o. at bedtime. 3. Bumex 2 mg p.o. t.i.d. 4. Sensipar 60 mg p.o. daily. 5. Clonidine 0.2 mg p.o. t.i.d. 6. Pepcid 20 mg p.o. q.48 hours. 7. Lopressor 100 mg p.o. b.i.d. 8. Multivitamin one tablet p.o. daily. 9. Oxycodone 10 mg p.o. q.4 hours p.r.n. 10. Renvela 1600 mg p.o. t.i.d. 11. Cardizem CD 240 mg p.o. b.i.d. 12. Coumadin 5 mg p.o. daily. 13. Ambien 10 mg p.o. at bedtime p.r.n. ALLERGIES: TO CODEINE AND MORPHINE SULFATE. FAMILY HISTORY: Positive for coronary artery disease in both parents. Mother with severe peripheral vascular disease. SOCIAL HISTORY: The patient is , residing in [place], [place]. No current alcohol, tobacco, or illicit drug use. Ambulatory with use of a cane. REVIEW OF SYSTEMS: CONSTITUTIONAL: Negative for weight loss or gain, ability to conduct usual activities. SKIN: Negative for rash, itching. EYES: Negative for double vision, pain. ENT/MOUTH: Negative for nose bleeding, neck stiffness, pain, tenderness. CARDIOVASCULAR: Negative for palpitations, dyspnea on exertion, orthopnea. RESPIRATORY: Negative for shortness of breath, wheezing, cough, hemoptysis, fever or night sweats. GASTROINTESTINAL: Negative for poor appetite, abdominal pain, heartburn, nausea, vomiting, constipation, or diarrhea. GENITOURINARY: Negative for urgency, frequency, dysuria, nocturia. MUSCULOSKELETAL: Negative for pain, swelling. NEUROLOGIC/PSYCHIATRIC: Negative for anxiety, depression. ALLERGY/IMMUNOLOGIC: Negative for skin rash, bleeding tendency. Otherwise negative except as stated per HPI. PHYSICAL EXAMINATION: VITAL SIGNS: Currently, blood pressure 124/77, pulse 63, respiratory rate 16, temperature 98.0 degrees Fahrenheit, and O2 saturation 98% on room air. GENERAL APPEARANCE: This is a 47-year-old male, alert and oriented x3, pleasant, responsive, in no acute distress. HEENT: Pupils are equal, round, reactive to light and accommodation. Extraocular muscles are intact. The patient tracks appropriately. Nares patent. OP is clear. Teeth in fair repair. NECK: Supple. No cervical adenopathy. No thyromegaly. No carotid bruits. No JVD appreciated. Cervical spine with full active and passive range of motion. No meningeal signs appreciated. CHEST: Lungs are clear to auscultation bilaterally. CARDIOVASCULAR: S1 and S2 without noted murmur, rub, or gallop. Right-sided pacemaker device in place. ABDOMEN: Rounded, soft, nontender, and nondistended. Bowel sounds are positive in all four quadrants. There is no hepatosplenomegaly. No abdominal bruits. No rebound or guarding appreciated. Peritoneal dialysis catheter in place. EXTREMITIES: Warm and dry with fair turgor. No clubbing, cyanosis, or asymmetric edema appreciated. Pulses are palpable distally at the dorsalis pedis, posterior tibial, and popliteal arteries bilaterally. Capillary refill less than 2 seconds. Left upper extremity with AV fistula in place. NEUROLOGIC: Mild dysarthria. Left hemiparesis. Left upper extremity 2/5 to 3/5 strength compared to the right upper extremity. Left lower extremity 2/5 to 3/5 strength. Not observed ambulatory during this exam. PERTINENT LAB AND X-RAY FINDINGS: Sodium 136, potassium 4.1, chloride 101, CO2 of 26, BUN 60, creatinine 7.45. Estimated GFR of 8. Troponin I negative x3. Total cholesterol 82, triglycerides 65, HDL 16, LDL 53. CBC showed a white blood cell count of 5.0, hemoglobin 8.5, hematocrit 26.7, and platelet count 175 with normal differential. PT 16.6, INR 1.3, PTT 39.6. CT of the brain dated 09/28/2018 showed no acute intracranial process. Mild cerebral volume loss. CT angiogram of [place] dated 09/28/2018 showed less than 50% stenosis in bilateral internal carotid arteries. No focal stenosis or branch occlusion in the [place] or vertebrobasilar system. EKG dated 09/28/2018 by my interpretation shows a right bundle branch block pattern. Heart rates in the 60s. ASSESSMENT AND PLAN: 1. Acute cerebrovascular accident/transient ischemic attack. The patient will be admitted to the Stroke Unit. Exact presentation unclear given patient's history of prior cerebrovascular accident. We will initiate aspirin 81 mg daily. MRI is unobtainable due to patient's MRI incompatible pacemaker device. Consult Neurology for any further recommendations. Check 2D transthoracic echocardiogram. Continue general stroke protocol including speech, occupational, and physical therapy. 2. End-stage renal disease with peritoneal dialysis. We will consult Nephrology Service for management of current peritoneal dialysis. No current evidence to suggest acute volume overload. 3. Expressive dysphasia. Question of patient's baseline dysphasia. We will continue Speech Therapy evaluation. General management as outlined previously in #1. 4. Hypertension. Resume home antihypertensive regimen and monitor clinical response. 5. Chronic anticoagulation. Continue Coumadin 5 mg p.o. daily. Current INR subtherapeutic. Repeat PT and INR in the a.m. 6. Anemia secondary to chronic kidney disease. No current evidence to suggest acute blood loss. Repeat CBC in the a.m. 7. Prophylaxis. SCDs while in bed. Pepcid 20 mg p.o. b.i.d. 8. Code status is full. Surrogate medical decision maker is the patient's spouse. Job ID: [id number]
--- NOTE | 2018-09-29 15:39 | EKG ---
Test Reason : Blood Pressure : / mmHG Vent. Rate : 060 BPM Atrial Rate : 061 BPM P-R Int : 000 ms QRS Dur : 228 ms QT Int : 542 ms P-R-T Axes : 000 -33 147 degrees QTc Int : 542 ms Wide QRS rhythm Left axis deviation Right bundle branch block Left ventricular hypertrophy with repolarization abnormality Confirmed by CECILIO POLLARD [id number]), deputy editor in chief ANTOLIN LEARY ([id number] on 09/29/2018 3:39:11 PM Referred By: Confirmed By:CECILIO POLLARD
[2018-09-29] MEDS ORDERED: Warfarin Sodium 5 MG TAB PO SCH ×2 (17:00)
[2018-09-29] MEDS ORDERED: Atorvastatin Calcium 10 MG TAB PO SCH (21:00)
[2018-09-29] MEDS ORDERED: Atorvastatin Calcium 40 MG TAB PO SCH ×2 (21:00)
[2018-09-30] MEDS: oxyCODONE 5 MG TAB PO PRN ×4 (02:27→15:46)
[2018-09-30 06:04] LABS: Anion Gap 15 mmol/L (10-20); BUN (Urea Nitrogen) 58 mg/dL (8.9-20.6); Calc. Creatinine Clearance 19 mL/min (70-130); Calcium 8.5 mg/dL (7.8-10.44); Carbon Dioxide 25 mmol/L (22-29); Cardiac Risk 4.7 (Less than 4.5); Chloride 100 mmol/L (98-107); Cholesterol 94 mg/dl (< 200 Desired); Estimated GFR-MDRD 8; Glucose 89 mg/dL (70-105); HDL Cholesterol 20 mg/dL (>60 Neg Risk); LDL Cholesterol, Calculated 61 mg/dL; Sodium 136 mmol/L (136-145); Triglycerides 67 mg/dL (Less than 150)
[2018-09-30 06:15] LABS: Hemoglobin 8.9 g/dL (14.0-18.0); Hypochromia SLIGHT = 6-15 cells (100X) (0-5/hpf); Lymphocytes 5 % (21-51); MDiff Complete? YES; Mean Corpuscular HGB CONC 31.9 g/dL (32.0-36.0); Mean Corpuscular Hemoglobin 25.4 pg (27.0-31.0); Mean Corpuscular Volume 79.8 fL (78.0-98.0); Monocytes 6 % (0-10); Neutrophil 89 % (42-75); PLT Morphology Comment Appears Adequate; Platelet Count 187 thou/uL (130-400); RBC Distribution Width 16.7 % (11.5-14.5); Red Blood Cell (RBC) Count 3.51 mill/uL (4.70-6.10); White Blood Cell (WBC) Count 6.8 thou/uL (4.8-10.8)
[2018-09-30] MEDS: Bumetanide 1 MG TAB PO SCH ×2 (08:54→15:45)
[2018-09-30] MEDS: cloNIDine 0.1 MG TAB PO SCH ×2 (08:54→15:48)
[2018-09-30] MEDS: Sevelamer Carbonate 800 MG TAB PO SCH ×2 (08:55→11:29)
[2018-09-30] MEDS: Metoprolol Tartrate 100 MG TAB PO SCH (08:55)
[2018-09-30] MEDS: Multivitamin W/ Minerals 1 TAB PO SCH (08:55)
[2018-09-30] MEDS: ALPRAZolam 1 MG TAB PO SCH (08:55)
[2018-09-30] MEDS: Cinacalcet HCl 30 MG TAB PO SCH (08:55)
[2018-09-30] MEDS ORDERED: Aspirin 81 mg Enteric Coated Tablet PO SCH (09:00)
[2018-09-30 11:50] VITALS: BP 104/58; TEMP 98.6
--- NOTE | 2018-09-30 11:51 | CT ---
CT BRAIN NONCONTRAST: DATE: 09-30-18 TIME: 8:12 A.M. HISTORY: 47-year-old male with left upper extremity weakness and left eye vision loss. FINDINGS: There is no midline shift or any other mass effect. There is no evidence of acute intracranial hemor rhage, large cortical infarct, obstructive hydrocephalus, or extraaxial fluid collection. The calvar ium is intact. IMPRESSION: No acute intracranial findings. elsi POS: BRENDAN
--- NOTE | 2018-10-01 05:16 | DIS ---
DATE OF ADMISSION: 09/28/2018 DATE OF DISCHARGE: 09/30/2018 DISCHARGE DIAGNOSES: 1. Status post acute cerebrovascular accident with residual left-sided weakness, stable. 2. End-stage renal disease with peritoneal dialysis. 3. Expressive dysphagia, questionable etiology, resolved. 4. Hypertension, stable. 5. Chronic anticoagulation with Coumadin. 6. Chronic atrial fibrillation with chronic anticoagulation with Coumadin. 7. Anemia secondary to chronic kidney disease, stable. CONSULTATIONS: 1. Dr. Yandel Lee with Neurology Service. 2. Dr. Debbie Enrique with Nephrology Service. PERTINENT LAB AND X-RAY FINDINGS: Creatinine ranged between 7.45 and 7.77, estimated GFR of 8. Troponin I negative x3. Total cholesterol 82, triglycerides 65, HDL 16, LDL 53. CBC showed a hemoglobin ranged between 8.5 and 9.7. PT 16.6, INR 1.3 09/28/2018. CT of the brain without contrast dated 09/28/2018 showed no acute intracranial process. Stable mild cerebral volume loss. CT angiogram of the head and neck dated 09/28/2018 showed less than 50% stenosis of the bilateral internal carotid arteries. No focal stenosis or branch occlusion involving the [place] or vertebrobasilar system. HOSPITAL COURSE: The patient was admitted to the stroke unit after presenting with increased left-sided weakness and expressive dysphagia in the context of known prior CVA status post tPA in August 2018. The patient underwent general stroke evaluation including neuroimaging showing no acute process. The patient was evaluated per stroke protocol; however, exhibited no specific or worsening deficits. The patient was also evaluated by the Neurology Service without specific recommendations for change to current management. The patient was continued on aspirin 81 mg daily in addition to his chronic anticoagulation with Coumadin. The patient received peritoneal dialysis at the direction of the Nephrology Service without complication. Exact etiology of the patient's presentation is unclear; however, no specific evidence to suggest an acute neurologic event such as a new CVA. The patient also underwent interrogation of his current pacemaker device showing normal functioning device. I have examined the patient at the time of discharge and discussed followup instructions. The patient verbalized understanding and agreement and ready for discharge on 09/30/2018. DISCHARGE MEDICATIONS: 1. Xanax 2 mg p.o. b.i.d. 2. Lipitor 10 mg p.o. at bedtime. 3. Sensipar 60 mg p.o. daily. 4. Clonidine 0.2 mg p.o. t.i.d. 5. Pepcid 20 mg p.o. every 48 hours. 6. Metoprolol tartrate 100 mg p.o. b.i.d. 7. Multivitamin one tab p.o. daily. 8. Oxycodone 10 mg p.o. every 4 hours p.r.n. 9. Renvela 1600 mg p.o. t.i.d. 10. Enteric-coated aspirin 81 mg p.o. daily. 11. Coumadin 5 mg p.o. daily. 12. Ambien 10 mg p.o. at bedtime. 13. Cardizem CD 240 mg p.o. b.i.d. FOLLOWUP: The patient may follow up with Dr. Yesenia Tracey after discharge from inpatient rehabilitation. CONDITION ON DISCHARGE: Stable. ACTIVITY: Ad garry. DIET: Heart healthy. CODE STATUS: Full. SPECIAL INSTRUCTIONS: Continue peritoneal dialysis at bedtime. DISPOSITION: Discharged to [facility] Inpatient Rehabilitation on 09/30/2018. Total time preparing and coordinating discharge is 32 minutes. Job ID: [id number]
== END 2018-09-30 16:00 | DRG 391 ==
LOC: ERS 15:14 → 2SE 17:45
PROVIDERS: ADMIT Internal Medicine Infectious Disease; ATTEND Internal Medicine Infectious Disease
PROC: 3E1M39Z Irrigation of Peritoneal Cavity using Dialysate, Percutaneous Approach (ICD-10-PCS; principal; 2018-09-28)
DX: R13.10 Dysphagia, unspecified (principal); N18.6 End stage renal disease; I69.354 Hemiplegia and hemiparesis following cerebral infarction affecting left non-dominant side; R53.1 Weakness; R47.1 Dysarthria and anarthria; Z99.2 Dependence on renal dialysis; I25.10 Atherosclerotic heart disease of native coronary artery without angina pectoris; Z95.5 Presence of coronary angioplasty implant and graft; I48.0 Paroxysmal atrial fibrillation; Z79.01 Long term (current) use of anticoagulants; Z95.0 Presence of cardiac pacemaker; E78.5 Hyperlipidemia, unspecified; Z79.891 Long term (current) use of opiate analgesic; Z79.899 Other long term (current) drug therapy; Z88.5 Allergy status to narcotic agent; D63.1 Anemia in chronic kidney disease; R55 Syncope and collapse
CPT/HCPCS: 36415; 36416; 70450; 70496; 70498; 80048; 80053; 80061; 81003; 81015; 82330; 82550; 82553; 82803; 84484; 85007; 85025; 85027; 85730; 93005; 93306; 96374; 96375; G8978-GP-CL; G8979-GP-CJ; G8987-GO-CL; G8988-GO-CJ; G8996-GN-CH; G8997-GN-CH; G8998-GN-CH; J2270; J2405

== ENCOUNTER 2018-11-30 04:56 | Inpatient (IN) | payer MEDICARE ==
[2018-11-30 06:23] LABS: Troponin I 0.051 ng/mL (< 0.028)
[2018-11-30] MEDS ORDERED: Morphine 4 MG/ML VIAL ONE ×3 (06:28→16:53)
[2018-11-30 09:07] LABS: Troponin I 0.041 ng/mL (< 0.028)
[2018-11-30] MEDS ORDERED: HYDROcodone/Acetaminophen 5/325 mg Tablet PO PRN (09:54)
[2018-11-30] MEDS ORDERED: Ondansetron PF 4 MG/2 ML Vial IVP PRN (09:54)
[2018-11-30] MEDS ORDERED: Senokot S 8.6-50 MG TAB PO PRN (09:54)
[2018-11-30] MEDS ORDERED: Acetaminophen 325 MG TAB PO PRN (09:54)
[2018-11-30] MEDS: Morphine 4 MG/ML VIAL SLOW IVP PRN ×3 (11:32→22:45)
--- NOTE | 2018-11-30 12:30 | HP ---
CHIEF COMPLAINT: Chest pain. HISTORY OF PRESENT ILLNESS: Mr. Dominguez is a 48-year-old who is a transfer from [facility] with complaints of chest pain. The patient reports chest tightness, which radiates to his left arm and woke him up from sleep earlier in the evening. Had associated vomiting, shortness of breath. He is noted to have a cough for the last few days. Reports that he has had temperature anywhere from 99.9 to 101.4 for the past few days. Reports that his fever resolved yesterday. The patient reports he has a pacemaker in place. Denies any history of smoking. The patient is on Coumadin for atrial fibrillation, rate controlled. The patient does peritoneal dialysis 7 times a week. The patient does report that this chest pain starts upper left chest and radiates to his left arm. Reports that the medication that was given to him in the emergency room did make it feel better, but reports that he feels like it is coming on, is not reproducible with palpation. The patient was seen in this hospital in September of 2018 for weakness to his left side. The patient does have a longstanding history of multiple CVAs x4 with left-sided deficits, intermittent difficulty with speech. The patient does have history of atrial fibrillation as mentioned above, and is on Coumadin. Initial troponin was in the indeterminate range at 0.051. Does have a history of congestive heart failure. Does report a cough and feels like he has had a cold until this past week. Chest x-ray in [facility], reports that he has cardiomegaly with vascular congestion, but no signs of pneumonia. Denies any changes to his medical history since he was admitted here last in September of 2018. He will be admitted to the observation unit for further management due to symptoms and past medical history that includes cardiac stent placement x3, atrial fibrillation, congestive heart failure. PAST MEDICAL HISTORY: 1. Ischemic CVA, post tPA 08/2018. 2. Multiple CVAs with residual right and left sided weakness. 3. End-stage renal disease, for which he is on peritoneal dialysis. 4. Congestive heart failure. 5. Coronary artery disease, status post cardiac stent placement x3. 6. Atrial fibrillation with current pacemaker and on chronic anticoagulation with Coumadin. 7. History of gout. 8. Chronic narcotic therapy. 9. Dyslipidemia. 10. History of AV fistula thrombosis, and does have a fistula to left upper arm. PAST SURGICAL HISTORY: 1. Status post placement of left upper extremity AV fistula with subsequent thrombectomy. 2. Post status appendectomy. 3. Status post pacemaker placement. 4. Status post peritoneal dialysis catheter placement. 5. Status post Lap-Band surgery. 6. Status post tonsillectomy. FAMILY HISTORY: Positive for coronary artery disease in both parents. Mother with severe peripheral vascular disease. SOCIAL HISTORY: The patient is . Living in [place], [place]. No current alcohol, tobacco, or illicit drug use. Ambulates at home with use of a cane. ALLERGIES: THE PATIENT IS ALLERGIC TO CODEINE AND MORPHINE, ALTHOUGH HAS BEEN TOLERATING MORPHINE IN THE EMERGENCY ROOM. CURRENT MEDICATIONS: Include, 1. Ambien 10 mg p.o. at bedtime as needed. 2. Clonidine 0.3 mg 1 tab t.i.d. 3. Bumex 2 mg p.o. b.i.d. 4. Warfarin 5 mg once a day. 5. Cardizem LA 240 mg b.i.d. 6. Xanax 1 mg b.i.d. 7. Metoprolol 100 mg b.i.d. 8. Atorvastatin 10 mg once a day at bedtime. 9. Sensipar 30 mg daily. 10. Sevelamer carbonate 1600 mg p.o. b.i.d. REVIEW OF SYSTEMS: CONSTITUTIONAL: The patient denies chills. Does report a fever this week. Reports that it abated yesterday. EYES: Denies any eye pain. Denies any eye discharge or vision changes. ENT: Denies any rhinorrhea or sore throat. CARDIOVASCULAR: Reports left-sided chest pain that radiates to the left arm. Denies diaphoresis, palpitations. RESPIRATORY: Does report some cough, some shortness of breath. GASTROINTESTINAL: Denies abdominal pain. Reports chronic constipation. Denies diarrhea. Does report vomiting. GENITOURINARY: Denies dysuria, hematuria. MUSCULOSKELETAL: Denies any back pain, recent injury or falls. SKIN: Denies rash or skin changes. NEURO: Denies headache. Denies any sensory changes, new weakness. PHYSICAL EXAMINATION: VITAL SIGNS: Blood pressure 172/108, pulse is 72, respirations are 23, temperature is 98.6, PO2 saturation is 91% on room air. CONSTITUTIONAL: The patient appears in mild pain distress. Does appear nontoxic, is alert and oriented to person, place, and time. HEAD: Atraumatic and normocephalic. EYES: Pupils are equally round and reactive to light. Extraocular muscles are intact. ENT: Mucous membranes are moist. Trachea is midline. RESPIRATORY: There is faint wheezing scattered, rhonchi diffuse. Chest expansion is equal. Pacemaker in right chest wall. CARDIOVASCULAR: Heart rate regular rate and rhythm. Heart sounds are normal. ABDOMEN: Peritoneal catheter is in place in the lower left abdomen. SKIN: Nontender. No erythema. No signs of infection. Dry, normal in color. No rash is noted. BACK: Normal inspection. Normal range of motion. EXTREMITIES: Upper extremity, motor strength is normal. There is a bulging AV fistula noted in the left upper arm. There is a bruit. Lower extremity, normal range of motion. Motor strength is normal. Sensation intact. Pedal pulses are equal bilaterally. Edema is noted +1. NEURO: The patient is oriented to person, place, and time. Speech is normal. IMAGING DATA: EKG in the emergency room shows atrial fibrillation with controlled ventricular response, occasional ventricular paced complexes, complete right bundle-branch block, left anterior fascicular block, bifascicular block, T-waves abnormality. Chest x-ray from [facility] does show vascular congestion. No acute pneumonia. LABORATORY DATA: White blood cell count was 6.1, hemoglobin is 10.4, hematocrit is 33.5, and platelet count is 191. PT is 19.2. INR is 1.6, PTT is 41.3. Sodium is 140, potassium is 3.8, chloride is 105, gap is 17, BUN is 72, creatinine is 7.31, estimated GFR is 8, glucose is 95, total bilirubin is 0.8, AST is 18, ALT is 17, alkaline phosphatase 126. Troponins are in the indeterminate range 0.047, 0.051, 0.041. ASSESSMENT AND PLAN: 1. Chest pain. Troponins have been trended. The patient had an echocardiogram in September of 2018 that showed an EF of 50% to 55%. 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 We will ask him to see the patient. 2. End-stage renal disease. We have contacted Dr. Lewis to arrange for peritoneal dialysis tonight, if he is still here. 3. Hypertension. Home medicine will be restarted. We will monitor clinical response. 4. Chronic anticoagulation. We will continue the Coumadin. We will check INRs in the a.m. 5. Anemia secondary to chronic kidney disease. Will repeat the CBC. No evidence to suggest acute blood loss. 6. Prophylaxis. SCDs while in bed. Pepcid 20 mg p.o. b.i.d. CODE STATUS: Full. Surrogate medical decision maker is the patient's spouse. Job ID: [id number]
[2018-11-30] MEDS ORDERED: Bumetanide 1 MG TAB PO SCH (15:00)
[2018-11-30] MEDS: Bumetanide 1 MG TAB PO SCH (16:58)
[2018-11-30 18:18] VITALS: BMI 31.6
[2018-11-30] MEDS: Famotidine 20 MG TAB PO SCH (19:52)
[2018-11-30] MEDS: Metoprolol Tartrate 100 MG TAB PO SCH (19:53)
--- NOTE | 2018-11-30 20:36 | CON ---
DATE OF CONSULTATION: 11/30/2018 REASON FOR CONSULTATION: Chest pain. HISTORY OF PRESENT ILLNESS: Mr. Dominguez is a pleasant 48-year-old white gentleman, very well known to myself, who comes to the hospital for chest pain. He has been having cough and a fever of up to 101.4 in the last week, consistent with bronchitis. He thought he had a little virus that is going around. He has been seen in the hospital several times in the past with chest pain, was consistent with unstable angina. He states that the pain that he has when he coughs is very different from the pain that he has been noticing that brought him to the hospital. He states that it is the same pain that he had in the past, we recommend that he undergo heart catheterization. It was just worse since he started having this fever and this upper airway infection. The reason he has never had a heart catheterization in the past was because his creatinine was very high and he wanted to prolong needing dialysis as much as he could, but now he has been on peritoneal dialysis since December of last year, so he is ready to have any further risk stratification that we may recommend. He is concerned that he is starting to get the pain at night. On my evaluation, the patient was chest pain free. PAST MEDICAL HISTORY: 1. Ischemic CVAs several times, on Coumadin, history of atrial fibrillation. INR has been subtherapeutic several times in the past. 2. End-stage renal disease, on peritoneal dialysis. 3. History of heart failure. 4. Coronary artery disease, status post stenting in the past. 5. Atrial fibrillation. 6. Chronic anticoagulation with Coumadin, subtherapeutic. 7. Pacemaker. 8. History of gout. 9. Hyperlipidemia. 10. AV fistula thrombosis. PAST SURGICAL HISTORY: 1. Left upper extremity AV fistula. 2. Appendectomy. 3. Pacemaker placement. 4. Peritoneal dialysis catheter placement. 5. Lap band surgery. 6. Tonsillectomy. FAMILY HISTORY: Positive for early coronary artery disease in both parents. Mother with severe peripheral vascular disease. SOCIAL HISTORY: No alcohol, tobacco, or drugs. OUTPATIENT MEDICATIONS: 1. Ambien 10 mg q.h.s. 2. Clonidine 0.3 t.i.d. 3. Bumex 2 mg b.i.d. 4. Warfarin. 5. Cardizem-LA 240 mg b.i.d. 6. Xanax 1 mg b.i.d. 7. Metoprolol 100 mg b.i.d. 8. Atorvastatin 10 mg daily. 9. Sensipar 30 mg a day. 10. Sevelamer 1600 mg b.i.d. ALLERGIES: CODEINE AND MORPHINE. REVIEW OF SYSTEMS: A 12-point review of systems was done, and was found to be negative unless stated in the history of present illness. PHYSICAL EXAMINATION: VITAL SIGNS: Temperature 97.6, pulse 78, respiratory rate 15, saturating 94% on room air, blood pressure 143/60. GENERAL: Awake, alert, and oriented x3. No distress. HEENT: Normocephalic and atraumatic. NECK: Supple. LUNGS: Clear. CARDIOVASCULAR: S1 and S2. No S3 or S4. No murmurs. ABDOMEN: Soft. Positive bowel sounds. EXTREMITIES: No edema. SKIN: Warm and dry. LABORATORY DATA: Laboratory work was reviewed. Troponin is 0.05, 0.04. 0.04. CBC with a white count of 6.1, hemoglobin of 10.4, platelet count of 191. Coags, INR was 1.6, creatinine of 7.3, otherwise CMP is unremarkable. BNP was 2193. ASSESSMENT: 1. Chest pain. Concerned for unstable angina. He has been having this pain for years and now is on dialysis, so he is ready for further risk stratification. 2. He is able to lay flat on the bed without significant shortness of breath or coughing. We will plan on further risk stratification tomorrow morning with a heart catheterization. 3. Atrial fibrillation. 4. Multiple CVAs. 5. Subtherapeutic INR. PLAN: 1. Plan on further risk stratification with heart catheterization in the morning. Risks and benefits of the procedure were discussed with him at length. Risks included but not limited to stroke, SD, , bleeding, need for blood transfusion, limb loss, organ loss, need for emergency bypass surgery. The patient verbalized understanding of this and agrees to proceed. 2. Further recommendations per results of coronary angiogram. 3. Would prefer bare metal stenting if needed given need for long-term anticoagulation. 4. Would recommend switching from Coumadin to Eliquis or Xarelto as he has several strokes while on Coumadin, he has been subtherapeutic. 5. We will follow. Job ID: [id number]
--- NOTE | 2018-11-30 21:55 | CON ---
DATE OF CONSULTATION: CONSULTING PHYSICIAN: Debbie Enrique MD REQUESTING PHYSICIAN: Hospitalist Program. REASON FOR CONSULTATION: Need for maintenance hemodialysis. IMPRESSION: 1. End-stage renal disease, on peritoneal dialysis. 2. Recurrent chest pain with a recent positive stress test. 3. Congestive heart failure. 4. Coronary artery disease, status post stent in the past. PLAN: 1. The patient to continue with this normal scheduled peritoneal dialysis. 2. Further management to be dependent on the clinical course. The patient likely to benefit from Cardiology evaluation given the history of recent stress test that was positive. HISTORY OF PRESENT ILLNESS: This is a 48-year-old gentleman with end-stage renal disease, on peritoneal dialysis, who presented here with chest pain. The patient recently had chest pain, for which he underwent stress test that came back positive. However, according to the patient, he was instructed to go and have his fistula evaluated, which has nothing to do with positive stress test. In any case, the patient re-presented here again with a chest pain and Renal has been consulted for the need for continued maintenance renal replacement therapy. PAST MEDICAL HISTORY: Significant for ischemic CVA, multiple CVA in the past, end-stage renal disease, congestive heart failure, coronary artery disease, atrial fibrillation, gout, and dyslipidemia. MEDICATIONS: Reviewed and as documented on [place]. FAMILY HISTORY: Significant for heart disease. SOCIAL HISTORY: . No alcohol. No tobacco. No illicit drug use. ALLERGIES: TO CODEINE, MORPHINE. REVIEW OF SYSTEMS: As documented in the body of the history. All other systems were reviewed and found not to be significantly related to presenting illness. PHYSICAL EXAMINATION: GENERAL: The patient was found not to be in any obvious distress. VITAL SIGNS: Noted with the following vital signs; afebrile at temperature 97.6, pulse 75, respiratory rate of 15, O2 saturation of 91% with blood pressure 153/80. HEENT: Unremarkable. CARDIOVASCULAR SYSTEM: First and second heart sounds were heard. RESPIRATORY SYSTEM: Clear to auscultation. DIGESTIVE SYSTEM: Revealed a benign abdomen with positive bowel sounds. EXTREMITIES: No peripheral edema. SKIN: No new gross rash. LYMPHATICS: No peripheral lymphadenopathy. SUMMARY: A 48-year-old gentleman who presented here with chest pain. Thank you for this consultation. We will follow with you. Job ID: [id number]
[2018-11-30] MEDS ORDERED: Zolpidem Tartrate 5 MG TAB PO PRN (23:00)
[2018-12-01] MEDS: ALPRAZolam 1 MG TAB PO PRN ×2 (00:52→08:45)
[2018-12-01] MEDS: Morphine 4 MG/ML VIAL SLOW IVP PRN ×4 (05:29→21:00)
[2018-12-01 05:59] LABS: INR-International Normal Ratio 1.6; Prothrombin Time 18.7 SEC (12.0-14.7)
[2018-12-01 06:00] LABS: #Eosinphils 0.4 thou/uL (0.0-0.7); #Lymphocytes 0.6 thou/uL (1.20-3.40); #Monocytes 0.6 thou/uL (0.11-0.59); #Neutrophils 4.1 thou/uL (1.40-6.50); %Basophils 0.7 % (0.0-1.0); %Eosinophils 6.3 % (0.0-10.0); Hemoglobin 10.3 g/dL (14.0-18.0); Mean Corpuscular HGB CONC 31.2 g/dL (32.0-36.0); Mean Corpuscular Hemoglobin 26.1 pg (27.0-31.0); Mean Corpuscular Volume 83.7 fL (78.0-98.0); Mean Platelet Volume 8.5 fL (7.4-10.4); PTT 43.8 SEC (22.9-36.1); Platelet Count 171 thou/uL (130-400); RBC Distribution Width 16.4 % (11.5-14.5); Red Blood Cell (RBC) Count 3.95 mill/uL (4.70-6.10); White Blood Cell (WBC) Count 5.8 thou/uL (4.8-10.8)
[2018-12-01 06:13] LABS: ALT (SGPT) 13 U/L (8-55); AST (SGOT) 15 U/L (5-34); Albumin 3.5 g/dL (3.5-5.0); Alkaline Phosphatase 123 U/L (40-150); Anion Gap 17 mmol/L (10-20); BUN (Urea Nitrogen) 67 mg/dL (8.9-20.6); Bilirubin, Total 0.5 mg/dL (0.2-1.2); Calc. Creatinine Clearance 17 mL/min (70-130); Calcium 10.3 mg/dL (7.8-10.44); Carbon Dioxide 22 mmol/L (22-29); Chloride 103 mmol/L (98-107); Estimated GFR-MDRD 8; Globulin 2.3 g/dL (2.4-3.5); Glucose 80 mg/dL (70-105); Potassium 4.1 mmol/L (3.5-5.1); Protein, Total 5.8 g/dL (6.0-8.3); Sodium 138 mmol/L (136-145)
[2018-12-01 06:32] LABS: HBSAg Index 0.24 S/CO (0-0.99); Hep B Surf Ag Non-Reactive S/CO (NonReactive)
[2018-12-01] MEDS: Bumetanide 1 MG TAB PO SCH ×3 (07:13→16:39)
[2018-12-01] MEDS ORDERED: Fentanyl 100 MCG/2 ML VIAL ONE (07:47)
[2018-12-01] MEDS ORDERED: Midazolam HCl 2 mg/2 ml Vial ONE (07:48)
[2018-12-01] MEDS ORDERED: Nitroglycerin 0.4 MG TAB (25 Tab Bottle) SL PRN (08:26)
[2018-12-01] MEDS ORDERED: Non-Formulary Item 1 EACH (Zolpidem Tartrate [Ambien] 10 MG) PO PRN (08:27)
[2018-12-01] MEDS: Famotidine 20 MG TAB PO SCH ×2 (08:34→19:55)
[2018-12-01] MEDS: Metoprolol Tartrate 100 MG TAB PO SCH ×2 (08:34→19:55)
[2018-12-01] MEDS: cloNIDine 0.3 MG TAB PO SCH ×3 (08:41→19:54)
[2018-12-01] MEDS: Cinacalcet HCl 30 MG TAB PO SCH (08:41)
[2018-12-01] MEDS: Aspirin 81 mg Enteric Coated Tablet PO SCH (08:41)
[2018-12-01] MEDS ORDERED: ALPRAZolam 0.5 MG TAB PO SCH (09:00)
[2018-12-01] MEDS ORDERED: Iopamidol 370 76% 100 ML VIAL ONE (10:50)
[2018-12-01] MEDS ORDERED: ISOVUE-370 76%-LOCM 1 ML ONE (11:28)
[2018-12-01] MEDS: Amoxicillin/Potassium Clav 500 MG TAB PO SCH (12:37)
--- NOTE | 2018-12-01 14:21 | PDOC.PN ---
- Subjective Encounter Start Date: 12/01/18 Encounter Start Time: 13:30 Subjective: patient examined after cardiac cath, patient alert, sitting up in bed -: discussed plan of care, allowed for questions, at bedside - Objective Resuscitation Status - Order Detail: 11/30/18 09:54 Resuscitation Status Routine Co-Sign Provider: Resuscitation Status: FULL: Full Resuscitation Vital Signs & Weight: Vital Signs (12 hours) Temp Pulse Resp BP Pulse Ox 12/01/18 11:08 98.0 F 78 16 146/72 H 96 12/01/18 08:41 77 12/01/18 05:15 97.5 F L 77 15 160/67 H 96 Weight Weight 96.978 kg I&O: 11/30/18 12/01/18 12/02/18 06:59 06:59 06:59 Intake Total 360 Output Total 1050 Balance -690 Result Diagrams: 12/02/18 05:19 12/02/18 05:19 Phys Exam - Physical Examination Constitutional: NAD HEENT: PERRLA, moist MMs Neck: no nodes, no JVD scatter rhonchi Cardiovascular: RRR Gastrointestinal: soft, non-tender Musculoskeletal: pulses present Neurological: non-focal, normal sensation, moves all 4 limbs Lymphatic: no nodes Psychiatric: normal affect, A&O x 3 Skin: no rash, normal turgor, cap refill <2 seconds Dx/Plan (1) Abnormal cardiac enzyme level Code(s): R74.8 - ABNORMAL LEVELS OF OTHER SERUM ENZYMES Status: Acute (2) Chest pain Code(s): R07.9 - CHEST PAIN, UNSPECIFIED Status: Acute (3) PVCs (premature ventricular contractions) Code(s): I49.3 - VENTRICULAR PREMATURE DEPOLARIZATION Status: Chronic (4) Atrial fibrillation Code(s): I48.91 - UNSPECIFIED ATRIAL FIBRILLATION Status: Chronic (5) CAD (coronary artery disease) Code(s): I25.10 - ATHSCL HEART DISEASE OF [place] CORONARY ARTERY W/O ANG PCTRS Status: Chronic (6) CKD (chronic kidney disease) stage 5, GFR less than 15 ml/min Code(s): N18.5 - CHRONIC KIDNEY DISEASE, STAGE 5 Status: Chronic (7) Chronic diastolic heart failure Code(s): I50.32 - CHRONIC DIASTOLIC (CONGESTIVE) HEART FAILURE Status: Chronic (8) HTN (hypertension) Code(s): I10 - ESSENTIAL (PRIMARY) HYPERTENSION Status: Chronic - Plan cont current plan of care, plan discussed w/ family, continue antibiotics, out of bed/ambulate Augmentin added for bronchitis, 4 vessel lesions seen during cath this am -: CV consulted, asked for CTA and possible JAYSON -: Discussions on CABG/MVR in near future -: Dr. Lewis managing PD * .Addendum( Late entry for 12/01/18) by Dr. White- * Pt seen and examined. Agree w plan as above. Started on Augmentin for bronchitis. Discussed w CTS for plans for CABG at a later date. Review of Systems - Review of Systems Respiratory: Cough - Medications/Allergies Allergies/Adverse Reactions: Allergies Allergy/AdvReac Type Severity Reaction Status Date / Time codeine Allergy Intermediate Hives Verified 11/30/18 18:16 Medications: Current Medications Acetaminophen (Tylenol) 650 mg PO Q4H PRN PRN Reason: Headache/Fever/Mild Pain (1-3) Hydrocodone Bitart/Acetaminophen ([place] 5/325) 1 tab PO Q4H PRN PRN Reason: Moderate Pain (4-6) Albuterol/Ipratropium (Duoneb) 3 ml NEB [id number] PRN PRN Reason: SOB &/or Wheezing Alprazolam (Xanax) 2 mg PO BIDPRN PRN PRN Reason: Anxiety Last Admin: 12/01/18 08:45 Dose: 2 mg Amoxicillin/Clavulanate Potassium (Augmentin) 500 mg PO 1200 [facility] Last Admin: 12/01/18 12:37 Dose: 500 mg Aspirin (Ecotrin) 81 mg PO DAILY [facility] Last Admin: 12/01/18 08:41 Dose: 81 mg Atorvastatin Calcium (Lipitor) 10 mg PO HS [facility] Bumetanide (Bumex) 2 mg PO BID-AC [facility] Last Admin: 12/01/18 08:34 Dose: 2 mg Cinacalcet (Sensipar) 60 mg PO DAILY [facility] Last Admin: 12/01/18 08:41 Dose: 60 mg Clonidine (Catapres) 0.3 mg PO TID [facility] Last Admin: 12/01/18 14:06 Dose: 0.3 mg Diltiazem HCl (Cardizem Cd) 240 mg PO BID [facility] Last Admin: 12/01/18 08:41 Dose: 240 mg Famotidine (Pepcid) 20 mg PO BID [facility] Last Admin: 12/01/18 08:34 Dose: 20 mg Metoprolol Tartrate (Lopressor) 100 mg PO BID [facility] Last Admin: 12/01/18 08:34 Dose: 100 mg Morphine Sulfate (Morphine) 4 mg SLOW IVP Q4H PRN PRN Reason: Moderate to Severe Pain (6-10) Last Admin: 12/01/18 12:42 Dose: 4 mg Nitroglycerin (Nitrostat) 0.4 mg SL Q5MIN PRN PRN Reason: Chest Pain Ondansetron HCl (Zofran) 4 mg IVP Q6H PRN PRN Reason: Nausea/Vomiting Senna/Docusate Sodium (Senokot S) 2 tab PO BID PRN PRN Reason: Constipation Sevelamer Carbonate (Renvela) 1,600 mg PO BID-[facility] Sodium Chloride (Flush - Normal Saline) 10 ml IVF Q12HR [facility] Last Admin: 12/01/18 08:34 Dose: 10 ml Sodium Chloride (Flush - Normal Saline) 10 ml IVF PRN PRN PRN Reason: Saline Flush Zolpidem Tartrate (Ambien) 10 mg PO HSPRN PRN PRN Reason: .INSOMNIA Last Admin: 12/01/18 00:51 Dose: 10 mg
[2018-12-01] MEDS: Sevelamer Carbonate 800 MG TAB PO SCH (16:39)
--- NOTE | 2018-12-01 17:18 | CON ---
DATE OF CONSULTATION: 12/01/2018 OTHER CONSULTING PHYSICIAN: Debbie Enrique MD CHIEF COMPLAINT: Chest pain. HISTORY OF PRESENT ILLNESS: The patient is a 48-year-old renal failure patient, on peritoneal dialysis. He has known coronary artery disease having undergone previous stenting procedures and has chronic atrial fibrillation. He has cerebrovascular disease and has had multiple strokes including two fairly recently. Over the week or so prior to admission, he had been running fever as high as 101.4 that without any specific treatment, it seem to resolve, but he had associated with this nonproductive cough and a bit of shortness of breath. Early yesterday morning, he awoke with chest pain that was somewhat different in character and it radiated to his left arm and was associated with vomiting and shortness of breath. EMS was summoned. He did not get any improvement in his pain with sublingual nitroglycerin. He originally was transported to [place] and because of the suspicion of an acute coronary syndrome was transferred from there to [facility] in [place]. His pain has since resolved. His troponins have all been mildly elevated but were fairly consistent without any rise and fall. The patient apparently previously had a positive stress test, but had deferred cardiac catheterization that was recommended at that time. With this episode, his changed his position on that and underwent cardiac catheterization today that shows three-vessel coronary artery disease that includes a high-grade calcified lesion at the ostium of the LAD. PAST MEDICAL HISTORY: Significant for end-stage renal disease, cerebrovascular disease, chronic atrial fibrillation, coronary artery disease, and gout. In August of 2018, he underwent tPA treatment for right hemispheric stroke and about a month later as he was completing rehab, had another episode of left body weakness. HOME MEDICATIONS: Include: 1. Lopressor 100 mg b.i.d. 2. Cardizem CD 240 mg b.i.d. 3. Clonidine 0.3 mg p.o. t.i.d. 4. One list also includes;. a. Hydralazine 10 mg t.i.d. b. Bumex 2 mg b.i.d. p.o. c. Baby aspirin a day. d. Coumadin 5 mg a day (Dr. John tells me that the patient is consistently subtherapeutic when INRs are checked). e. Lipitor 10 mg at bedtime. f. Renvela 1600 mg b.i.d. g. Cinacalcet 60 mg a day. h. Xanax 2 mg b.i.d. i. Ambien 10 mg p.o. at bedtime p.r.n. insomnia. j. OxyContin 20 mg q.4 hours. Some lists describe it as p.r.n., others as scheduled. His Coumadin currently is on hold. ALLERGIES: THE PATIENT REPORTS AN ALLERGY TO CODEINE, WHICH CAUSES HIVES. SOCIAL HISTORY: He does not smoke or drink. FAMILY HISTORY: Significant for coronary artery disease in both parents and severe peripheral vascular disease in his mother. REVIEW OF SYSTEMS: Positive for multiple neurologic events largely right hemispheric with left arm and leg weakness, but he has had previous ones that have caused some right leg weakness and some dysarthria. He normally walks with a cane at this point because of residual left leg weakness. He has been having some shortness of breath of late. He had fever at home prior to this and had a pleuritic quality of pain in his chest when he coughed. His cough was nonproductive. He has had some swelling in his lower extremities that in the past has been significant to the point of developing what appears to be venous stasis ulceration on the right lower extremity. He has not had any orthopnea or PND. He has not had any bleeding problems with any of his surgical procedures, which include peritoneal dialysis catheter placement, left brachiocephalic AV fistula creation, knee arthroscopy, and right-sided single ventricular pacemaker placement. PHYSICAL EXAMINATION: GENERAL: On exam, he looks somewhat older than his stated age. VITAL SIGNS: His height is 5 feet 9 inches. Weight is 213-3/4 pounds. Heart rate is 77, blood pressure 160/67, room air O2 sats have been 93% to 96%. HEENT: He has no xanthelasma. NECK: No JVD. No carotid bruits. CHEST: Clear to auscultation. HEART: He had an irregularly irregular rate and rhythm. I was not able to appreciate any murmurs or gallops. ABDOMEN: Soft and nontender with peritoneal dialysis catheter in place in the left lower abdomen. EXTREMITIES: He has an AV fistula that is massively dilated in his left upper arm that has a weak pulse in it. I was not able to appreciate either radial pulse. He has venous stasis pigmentation of both lower legs, worse so on the right than on the left and there is an almost triangular-shaped scar associated with the right pretibial area just of the medial aspect of the anterior midline. His feet are warm and pink without obvious edema. He has easily palpable dorsalis pedis pulses. I was not able to appreciate posterior tibial pulses. He has a slight swelling on the dorsal aspect at the back of his right hand just beyond the wrist joint that he says is somewhat tender. His right ankle was somewhat tender (he says that he is currently having a gout flare up). He has perhaps some subtle weakness of right foot plantar flexion, although he states that it is his left leg that is weak. 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 DIAGNOSTIC DATA: Laboratory exam showed a white count of 5.8, hemoglobin of 10.3, hematocrit is 33.0, and platelets 171,000. His PT was 18.7 seconds with an INR 1.6, PTT was 43.8 seconds. His chemistries were normal. His glucose was 80, BUN was 67, creatinine 7.19, calcium 10.3, protein 5.8, albumin 3.5, bilirubin 0.5, alkaline phosphatase 123, AST 15, and ALT 13. His troponins from a quarter to six in the morning to about a quarter till noon yesterday were 0.051, 0.041, and 0.040. His chest x-ray shows aortic knob calcifications, large rounded heart with cardiothoracic ratio of about 65%, and an extensive pulmonary edema. Corresponding BNP was 2193. By report, his EKG showed lateral T-wave inversions. The EKG proper was not available for my review. Echocardiography from September of 2018, showed an ejection fraction of around 50% to 55% with severe mitral regurgitation and a sclerotic aortic valve. His left atrium was significantly enlarged, one measurement being about 5.5 cm and another measurement being approximately 6.75. His mitral regurgitation has worsened compared to an echo about 2 years previously. In September of 2018, when he was sent here from rehab with a neurologic event, he had a CTA. There is extensive calcifications seen in the arch and in the origins of the great vessels without obvious stenosis. The right internal carotid, however, has sufficiently extensive calcification to make assessment of its degree of stenosis rather difficult. The left side did not seem to have any significant stenosis. His most recent carotid ultrasound available to me is from May of 2017 that showed plaque but normal velocities and ratios. The CTA that he had in September did not go very far down to be able to assess the ascending aorta. His cardiac catheterization shows a right-dominant system with extensive disease in the right coronary proper. He has serial subtotal or total occlusions with [id number] collaterals around one apparent complete occlusion. I do not see the PDA very well. The posterior laterals are somewhat mimicked on the vessel feeling left right from the left-sided injections. The LAD has a large calcified lesion at its ostium associated with about an 80% or 90% stenosis. A relatively high first diagonal that had previously been stented has about a 70% lesion in it. It appears to be of modest size but probably bypassable vessel. The LAD is a fairly good size vessel that wraps around the apex of the heart, although it is a fairly straight contour suggesting that it may be intramyocardial. The circumflex system essentially has a bifurcated groove circumflex with some significant disease in it, but the branch vessels did not appear to the emerge out on the epicardial surface where that will be graftable. A vessel that probably could most properly be described as a ramus intermedius has an anterior branch that comes off rather high that has 70% or 80% lesion at its origin. There is a little bit of luminal irregularity in that ramus proximal to that, but not enough to compromise the more posterior branch. The LV-gram was suboptimal, but calculated is an EF of 60%. LV pressures were measured as 149/0 with an EDP of 10 and 142/3 with an EDP of 5. Aortic pressure on pullback from the 142/3 reading was 132/70 with a mean of 99. IMPRESSION AND RECOMMENDATIONS: Severe coronary artery disease in a dialysis patient including calcified lesion at the origin of the left anterior descending anatomically. Clearly, the patient's best long-term option would be with surgical revascularization. I have several issues that need to be further assessed and discussed this at length with Dr. John with whom I reviewed his echocardiogram and his cardiac catheterization. It sounds like he may have had bronchitis. He certainly had some sort of febrile illness that was associated with some cough and shortness of breath. I spoke with the hospitalist about initiating appropriate antibiotic therapy for community-acquired bronchitis and I would like to give him 2 or 3 weeks to fully recover from that illness if at all feasible. There is concern about the status of his carotids in my review of the CTA he had in September, I would agree with the radiologist's interpretation that the calcifications in his right internal carotid certainly make assessment of stenosis there difficult. I think that carotid ultrasonography may be a modality that will offer better insight as to whether this might represent a symptomatic lesion since he has had two recent right hemispheric events. I can take care of this in office when I see him back in 2 or 3 weeks time to reassess him. In the meantime, I think that his mitral regurgitation needs to be assessed. His heart is certainly enlarged. He is in chronic atrial fibrillation, however, no illusions that anything that I can offer will successfully cardiovert him. Ligation of his left atrial appendage as suggested by Dr. John. I think it is clearly reasonable. My concern is whether given his cardiac dilatation and the progression of his mitral regurgitation that he may need some structural assessment of his treatment of his mitral regurgitation, namely repair or replacement. Given the dilated nature of his heart and the fact that he is being maintained on Coumadin, one could make an argument for simply replacing his mitral valve. However, Dr. John makes a very valid point that if he is not adequately anticoagulated and he has consistently been subtherapeutic up until this point, he may be better off with a repair that does not require long-term anticoagulation even if it may be suboptimal and not provide the durability that one would hope. We discussed assessing his mitral valve further with transesophageal echocardiography. Job ID: [id number]
--- NOTE | 2018-12-01 17:53 | CT ---
CT ANGIOGRAM OF CHEST: 12/01/18 HISTORY: Status post heart cath. Heart problems. Patient is on dialysis. Assess aorta and great vessels for ca lcification. COMPARISON: None. TECHNIQUE: CT angiogram of the chest is performed in the axial plane. Sagittal and coronal three dimensional ref ormatted images are submitted for interpretation. FINDINGS: The axilla are unremarkable. There appears to be a isodense nodule posterior to the right thyroid lob e measuring 1.8 x 1.6 cm, incompletely evaluated. Somewhat of a smaller appearing nodule is also note d posterior to the left thyroid lobe measuring 1.3 x 0.8 cm. Nonspecific paratracheal lymph nodes. There appears to be an enlarged subcarinal lymph node measuring 2.1 x 2.0 cm. No significant hilar lymphadenopathy. Adequate contrast opacifications of the central pulmonary arterial system. No filling defect. Heart is enlarged. There are coronary artery calcificat ions. No significant pericardial fluid. There is atherosclerosis of the aortic arch and patchy calcif ied atherosclerotic disease in the descending thoracic aorta. Calcified plaque is noted at the origin of the parotid arteries and the left subclavian artery. Please refer to separate CT angiogram head a nd neck from 09/28/18 for further detail. The descending thoracic aorta and visualized upper abdomina l aorta appear to be patent. Note is made of a gastric lap band. Visualized solid organs are unremarkable. No lytic or blastic lesions in the osseous structures. Trachea and central bronchi are patent. Trace right sided and left sided pleural effusions. Patchy op acities in both lower lobes likely related to areas of scar and/or atelectasis. No suspicious masses in the right upper lobe, middle lobe, or right lower lobe. No suspicious masses in the left upper lob e or left lower lobe. There appears to be an incompletely evaluated vascular stent in the lower left neck. IMPRESSION: 1. Extensive coronary artery calcifications. 2. Atherosclerosis without significant stenosis of the visualized aorta as well as the origin of the great vessels. Refer to separate CT angiogram head and neck report 09/28/18 for further detail. POS: [facility]
[2018-12-01] MEDS ORDERED: Atorvastatin Calcium 10 MG TAB PO SCH (21:00)
--- NOTE | 2018-12-01 23:15 | PRG ---
DATE OF SERVICE: Job ID: [id number]
[2018-12-02] MEDS: Morphine 4 MG/ML VIAL SLOW IVP PRN ×4 (04:29→20:35)
[2018-12-02 06:26] LABS: #Eosinphils 0.3 thou/uL (0.0-0.7); #Lymphocytes 0.6 thou/uL (1.20-3.40); #Monocytes 0.4 thou/uL (0.11-0.59); #Neutrophils 4.7 thou/uL (1.40-6.50); %Basophils 0.2 % (0.0-1.0); %Eosinophils 4.6 % (0.0-10.0); %Lymphocytes 9.9 % (21.0-51.0); %Monocytes 7.1 % (0.0-10.0); %Neutrophils 78.2 % (42.0-75.0); Hemoglobin 9.7 g/dL (14.0-18.0); Mean Corpuscular HGB CONC 31.4 g/dL (32.0-36.0); Mean Corpuscular Hemoglobin 26.2 pg (27.0-31.0); Mean Corpuscular Volume 83.4 fL (78.0-98.0); Platelet Count 149 thou/uL (130-400); RBC Distribution Width 16.4 % (11.5-14.5); Red Blood Cell (RBC) Count 3.71 mill/uL (4.70-6.10)
[2018-12-02 06:31] LABS: INR-International Normal Ratio 1.4; PTT 39.8 SEC (22.9-36.1); Prothrombin Time 16.9 SEC (12.0-14.7)
[2018-12-02 07:20] LABS: ALT (SGPT) 10 U/L (8-55); AST (SGOT) 12 U/L (5-34); Albumin 3.3 g/dL (3.5-5.0); Alkaline Phosphatase 118 U/L (40-150); Anion Gap 18 mmol/L (10-20); BUN (Urea Nitrogen) 67 mg/dL (8.9-20.6); Bilirubin, Total 0.4 mg/dL (0.2-1.2); Calc. Creatinine Clearance 18 mL/min (70-130); Calcium 8.6 mg/dL (7.8-10.44); Carbon Dioxide 20 mmol/L (22-29); Chloride 102 mmol/L (98-107); Estimated GFR-MDRD 8; Globulin 2.1 g/dL (2.4-3.5); Glucose 82 mg/dL (70-105); Potassium 4.3 mmol/L (3.5-5.1); Protein, Total 5.4 g/dL (6.0-8.3); Sodium 136 mmol/L (136-145)
[2018-12-02] MEDS: Cinacalcet HCl 30 MG TAB PO SCH (08:24)
[2018-12-02] MEDS: cloNIDine 0.3 MG TAB PO SCH ×3 (08:24→20:42)
[2018-12-02] MEDS: Sevelamer Carbonate 800 MG TAB PO SCH ×2 (08:24→17:22)
[2018-12-02] MEDS: Aspirin 81 mg Enteric Coated Tablet PO SCH (08:24)
[2018-12-02] MEDS: Bumetanide 1 MG TAB PO SCH ×2 (08:24→17:22)
[2018-12-02] MEDS: Metoprolol Tartrate 100 MG TAB PO SCH ×2 (08:25→20:43)
[2018-12-02] MEDS: Famotidine 20 MG TAB PO SCH ×2 (08:25→20:43)
--- NOTE | 2018-12-02 10:37 | PDOC.PN ---
- Subjective Encounter Start Date: 12/02/18 Encounter Start Time: 10:35 Subjective: Patient complaining of diffuse joint aches due to gout. -: Reports left chest heaviness with pain in left shoulder. -: Has been NPO since last night, awaiting JAYSON. Mild cough. No SOB. No hemoptysis. Denies any fevers. - Objective Resuscitation Status - Order Detail: 11/30/18 09:54 Resuscitation Status Routine Co-Sign Provider: Resuscitation Status: FULL: Full Resuscitation Vital Signs & Weight: Vital Signs (12 hours) Temp Pulse Resp BP BP Pulse Ox 12/02/18 08:25 64 115/53 L 12/02/18 08:24 115/53 L 12/02/18 07:25 98.3 F 64 14 115/53 L 92 L 12/02/18 04:15 97.7 F 72 17 122/50 L 92 L 12/01/18 23:33 98.3 F 64 16 113/53 L 92 L Weight Weight 219 lb 2.232 oz I&O: 12/01/18 12/02/18 12/03/18 06:59 06:59 06:59 Intake Total 360 360 Output Total 1050 600 Balance -690 -240 Result Diagrams: 12/02/18 05:19 12/02/18 05:19 Phys Exam - Physical Examination Constitutional: NAD HEENT: PERRLA dry oral mucosa Neck: full ROM Respiratory: clear to auscultation bilateral Cardiovascular: RRR No chest wall tenderness Gastrointestinal: soft, non-tender, no distention, positive bowel sounds Musculoskeletal: no edema Shunt in left upper extremity, no erythema or swelling Neurological: moves all 4 limbs Psychiatric: normal affect, A&O x 3 Skin: no rash Dx/Plan (1) Chest pain Code(s): R07.9 - CHEST PAIN, UNSPECIFIED Status: Acute (2) Anemia of renal disease Code(s): D63.1 - ANEMIA IN CHRONIC KIDNEY DISEASE Status: Chronic (3) CAD (coronary artery disease) Code(s): I25.10 - ATHSCL HEART DISEASE OF [place] CORONARY ARTERY W/O ANG PCTRS Status: Chronic (4) Chronic diastolic heart failure Code(s): I50.32 - CHRONIC DIASTOLIC (CONGESTIVE) HEART FAILURE Status: Chronic (5) Gout Code(s): M10.9 - GOUT, UNSPECIFIED Status: Chronic (6) HTN (hypertension) Code(s): I10 - ESSENTIAL (PRIMARY) HYPERTENSION Status: Chronic - Plan cont current plan of care, continue antibiotics, incentive spirometry, out of bed/ambulate -: Seen by Dr. Matthew this morning, awaiting JAYSON. -: Plans for surgery pending results and completion of Abx for bronchitis. -: Per patient, he and his need time to make arrangements with family. -: Further plans as per Cardiology. * . Review of Systems - Review of Systems Constitutional: malaise. negative: fever, chills, sweats, weakness Eyes: negative: Pain, Vision Change, Conjunctivae Inflammation, Eyelid Inflammation, Redness ENT: negative: Ear Pain, Ear Discharge, Nose Pain, Nose Discharge, Nose Congestion, Mouth Pain, Mouth Swelling, Throat Pain, Throat Swelling Respiratory: Cough. negative: Dry, Shortness of Breath, Hemoptysis, SOB with Excertion, Pleuritic Pain, Sputum, Wheezing Cardiovascular: chest pain. negative: palpitations, orthopnea, paroxysmal nocturnal dyspnea, edema, light headedness Gastrointestinal: negative: Nausea, Vomiting, Abdominal Pain, Diarrhea, Constipation, Melena, Hematochezia Genitourinary: negative: Dysuria, Frequency, Incontinence, Hematuria, Retention Musculoskeletal: Foot Pain Skin: negative: Rash, Lesions, Rodney, Bruising Neurological: negative: Weakness, Numbness, Incoordination, Change in Speech, Confusion, Seizures - Medications/Allergies Allergies/Adverse Reactions: Allergies Allergy/AdvReac Type Severity Reaction Status Date / Time codeine Allergy Intermediate Hives Verified 11/30/18 18:16 Medications: Current Medications Acetaminophen (Tylenol) 650 mg PO Q4H PRN PRN Reason: Headache/Fever/Mild Pain (1-3) Hydrocodone Bitart/Acetaminophen ([place] 5/325) 1 tab PO Q4H PRN PRN Reason: Moderate Pain (4-6) Albuterol/Ipratropium (Duoneb) 3 ml NEB [id number] PRN PRN Reason: SOB &/or Wheezing Alprazolam (Xanax) 2 mg PO BIDPRN PRN PRN Reason: Anxiety Last Admin: 12/01/18 08:45 Dose: 2 mg Amoxicillin/Clavulanate Potassium (Augmentin) 500 mg PO 1200 KEVIN Last Admin: 12/01/18 12:37 Dose: 500 mg Aspirin (Ecotrin) 81 mg PO DAILY [facility] Last Admin: 12/02/18 08:24 Dose: Not Given Atorvastatin Calcium (Lipitor) 10 mg PO HS [facility] Last Admin: 12/01/18 19:55 Dose: 10 mg Bumetanide (Bumex) 2 mg PO BID-AC [facility] Last Admin: 12/02/18 08:24 Dose: Not Given Cinacalcet (Sensipar) 60 mg PO DAILY [facility] Last Admin: 12/02/18 08:24 Dose: Not Given Clonidine (Catapres) 0.3 mg PO TID [facility] Last Admin: 12/02/18 08:24 Dose: Not Given Diltiazem HCl (Cardizem Cd) 240 mg PO BID [facility] Last Admin: 12/02/18 08:25 Dose: Not Given Famotidine (Pepcid) 20 mg PO BID [facility] Last Admin: 12/02/18 08:25 Dose: Not Given Metoprolol Tartrate (Lopressor) 100 mg PO BID [facility] Last Admin: 12/02/18 08:25 Dose: Not Given Morphine Sulfate (Morphine) 4 mg SLOW IVP Q4H PRN PRN Reason: Moderate to Severe Pain (6-10) Last Admin: 12/02/18 09:02 Dose: 4 mg Nitroglycerin (Nitrostat) 0.4 mg SL Q5MIN PRN PRN Reason: Chest Pain Ondansetron HCl (Zofran) 4 mg IVP Q6H PRN PRN Reason: Nausea/Vomiting Senna/Docusate Sodium (Senokot S) 2 tab PO BID PRN PRN Reason: Constipation Sevelamer Carbonate (Renvela) 1,600 mg PO BID-[facility] Last Admin: 12/02/18 08:24 Dose: Not Given Sodium Chloride (Flush - Normal Saline) 10 ml IVF Q12HR [facility] Last Admin: 12/02/18 08:28 Dose: 10 ml Sodium Chloride (Flush - Normal Saline) 10 ml IVF PRN PRN PRN Reason: Saline Flush Zolpidem Tartrate (Ambien) 10 mg PO HSPRN PRN PRN Reason: .INSOMNIA Last Admin: 12/01/18 00:51 Dose: 10 mg
--- NOTE | 2018-12-02 11:50 | PRG ---
DATE OF SERVICE: 12/02/2018 SUBJECTIVE: The patient is seen and examined. Noted with the following vital signs. OBJECTIVE: VITAL SIGNS: Afebrile, temperature 98.3, pulse 64, respiratory rate of 14, O2 saturations 92%, and blood pressure 115/63. HEENT: Unremarkable. CARDIOVASCULAR SYSTEM: First and second heart sounds were heard. RESPIRATORY SYSTEM: Clear to auscultation. DIGESTIVE SYSTEM: Revealed a benign abdomen. EXTREMITIES: No peripheral edema. SKIN: No new gross rash. LABORATORY INVESTIGATION: Showed hemoglobin 9.7. Creatinine 7.21 with bicarb of 20. IMPRESSION: 1. Coronary artery disease, status post stents. 2. Chest pain with [id number] myocardial infarction. 3. End-stage renal disease, on peritoneal dialysis. PLAN: 1. We will continue with current peritoneal dialysis treatment. However, if the patient is to undergo coronary artery bypass surgery and if the peritoneal dialysis fluid not to be adequate, we will likely transition to hemodialysis transiently. 2. Renally dose all medications. 3. Further management will be dependent on the clinical course. Job ID: [id number]
[2018-12-02] MEDS ORDERED: Propofol 1,000 MG/100 ML VIAL IV ONE (12:10)
[2018-12-02] MEDS ORDERED: Glycopyrrolate 0.2 MG/ML 5 ML SYRINGE ONE (12:11)
[2018-12-02] MEDS: Amoxicillin/Potassium Clav 500 MG TAB PO SCH (12:49)
[2018-12-02] MEDS ORDERED: cloNIDine 0.3 MG TAB PO SCH (15:30)
[2018-12-02] MEDS ORDERED: Acetaminophen 325 MG TAB PO PRN (15:33)
[2018-12-02] MEDS ORDERED: ALPRAZolam 1 MG TAB PO PRN (15:34)
[2018-12-02] MEDS ORDERED: HYDROcodone/Acetaminophen 5/325 mg Tablet PO PRN (15:37)
[2018-12-02] MEDS ORDERED: Ondansetron PF 4 MG/2 ML Vial IVP PRN (15:38)
[2018-12-02] MEDS ORDERED: Senokot S 8.6-50 MG TAB PO PRN (15:38)
[2018-12-02] MEDS ORDERED: Nitroglycerin 0.4 MG TAB (25 Tab Bottle) SL PRN (15:39)
[2018-12-02] MEDS ORDERED: Zolpidem Tartrate 5 MG TAB PO PRN (15:39)
[2018-12-02] MEDS ORDERED: Atorvastatin Calcium 10 MG TAB PO SCH (21:00)
--- NOTE | 2018-12-02 22:56 | ECHO ---
CARDIOLOGY PROCEDURE NOTE: Date: 12/02/18 PROCEDURE: Transesophageal echocardiogram. INDICATION FOR PROCEDURE: This is a 48-year-old gentleman who needs to undergo bypass surgery. He was found to have mitral valv e regurgitation with probable mitral valve prolapse. He was advised to undergo a transesophageal echo cardiogram to evaluate the mitral valve closer to determine whether or not he needs to undergo mitral valve repair or replacement. DESCRIPTION OF PROCEDURE: The patient was taken to the recovery area where he underwent short-acting Propofol. The transesophag eal probe was easily passed down the distal esophagus. IMPRESSION: 1. Normal left ventricular systolic function with slightly decreased ejection fraction estimated at 50-55%. 2. Left atrial dilatation. 3. No evidence of left atrial or left atrial appendage thrombus. 4. No evidence of patent foramen ovale or atrial septal defect. 5. There is decreased flow in the left atrium, less than 2-3 meters/second. 6. Severe mitral valve regurgitation. 7. Moderate tricuspid valve regurgitation. 8. Aortic valve sclerosis, but no evidence of stenosis or aortic valve regurgitation. 9. No significant mitral valve prolapse appreciated. The posterior mitral valve leaflet is slightly bowing somewhat, but does not cross the plane into the left atrium. 10. There were no significant complications during the procedure. I would suggest that the patient u ndergo left atrial appendage ligation during surgery, and most likely will need to undergo mitral loly ve repair with a mitral valve ring.
[2018-12-03 06:00] LABS: Anion Gap 15 mmol/L (10-20); BUN (Urea Nitrogen) 68 mg/dL (8.9-20.6); Calc. Creatinine Clearance 0 mL/min (70-130); Calcium 9.2 mg/dL (7.8-10.44); Carbon Dioxide 23 mmol/L (22-29); Chloride 102 mmol/L (98-107); Estimated GFR-MDRD 8; Glucose 88 mg/dL (70-105); Magnesium 1.5 mg/dL (1.6-2.6); Potassium 4.2 mmol/L (3.5-5.1); Sodium 136 mmol/L (136-145)
[2018-12-03] MEDS: Morphine 4 MG/ML VIAL SLOW IVP PRN (08:15)
[2018-12-03] MEDS ORDERED: Apixaban 2.5 MG TAB PO SCH (09:00)
[2018-12-03] MEDS ORDERED: Aspirin 81 mg Enteric Coated Tablet PO SCH (09:00)
[2018-12-03] MEDS ORDERED: Cinacalcet HCl 30 MG TAB PO SCH (09:00)
[2018-12-03] MEDS: Bumetanide 1 MG TAB PO SCH (09:43)
[2018-12-03] MEDS: Sevelamer Carbonate 800 MG TAB PO SCH (09:44)
[2018-12-03] MEDS: Famotidine 20 MG TAB PO SCH (09:45)
[2018-12-03] MEDS: Metoprolol Tartrate 100 MG TAB PO SCH (09:45)
[2018-12-03] MEDS: cloNIDine 0.3 MG TAB PO SCH (09:45)
[2018-12-03] MEDS ORDERED: Apixaban 5 MG TAB PO SCH ×2 (10:30→21:00)
--- NOTE | 2018-12-03 11:36 | PDOC.CTH ---
Cardiology Progress Note - Subjective The pt seen and examined. No overnight events. No cardiac complaints. - Objective Vital Signs Temp Pulse Resp BP BP Pulse Ox 12/03/18 09:45 123/53 L 12/03/18 09:44 60 123/53 L 12/03/18 08:10 98.3 F 60 16 123/53 L 93 L 12/03/18 04:00 98.5 F 78 19 111/50 L 92 L 12/02/18 23:46 98.2 F 81 18 131/63 94 L Weight 7.894 oz 12/02/18 12/03/18 12/04/18 06:59 06:59 06:59 Intake Total 360 2410 240 Output Total 600 1175 Balance -240 1235 240 - Physical Examination General/Neuro: alert & oriented x3 Neck: no JVD present Lungs: CTA (diminished at bases) Heart: other: (irregular) Abdomen: soft Extremities: other: (No edema) - Telemetry Telemetry Rhythm: V paced with AFib - Labs Result Diagrams: 12/02/18 05:19 12/03/18 04:45 Troponin/CKMB Troponin I 0.040 ng/mL (< 0.028) H 11/30/18 11:42 - Assessment/Plan 1. Severe MR - Severe MR by JAYSON on 12/02/2018; 2. CAD with hx of stent - Plan for CABG with MVR and MARIA ANTONIA ligation (for AFib) by Dr Bonds 3. Chronic Diastolic HF - stable; on PD 4. HTN - stable 5. Hx of PM placement - stble 6. Hyperlipidemia - on Statin 7. Gout - 8. Afib with Coumadin - V paced with underline rhythm Afib. Coumadin was stopped for cont. thrombosis and changed to Eliquis 2.5mg BID (renal dose) 9. Bronchitis - on po ABX MAR reviewed * From Cardiac standpoint, the pt is stable to d/c home. The pt will f/u with Dr John's office within 2-4wks. Review of Systems - Review of Systems Constitutional: reports: no symptoms reported EENTM: reports: no symptoms reported Respiratory: reports: no symptoms reported Cardiac (ROS): reports: no symptoms reported ABD/GI: reports: no symptoms reported : reports: no symptoms reported Musculoskeletal: reports: no symptoms reported Skin: reports: no symptoms reported
[2018-12-03] MEDS ORDERED: Amoxicillin/Potassium Clav 500 MG TAB PO SCH (12:00)
[2018-12-03 12:28] VITALS: BP 117/55; TEMP 98.5
[2018-12-03] MEDS ORDERED: oxyCODONE 5 MG TAB PO SCH (13:00)
--- NOTE | 2018-12-04 05:14 | PRG ---
DATE OF SERVICE: 12/04/2018 Job ID: [id number]
--- NOTE | 2018-12-06 09:45 | CON ---
DATE OF CONSULTATION: ADDENDUM: I am also going to check a CT scan of the chest to evaluate his ascending aorta for significant calcification. Job ID: [id number]
== END 2018-12-03 14:36 | disposition home health service (06) | DRG 286 ==
LOC: ERS 04:56 → ERHOLD 05:46 → 2SW 18:08 → OBSVTOIN 12-01 13:38 → UNDODISIN 12-02 13:42
PROVIDERS: ADMIT Family Medicine; ATTEND Family Medicine
PROC: 4A023N7 Measurement of Cardiac Sampling and Pressure, Left Heart, Percutaneous Approach (ICD-10-PCS; principal; 2018-12-01)
PROC: B2111ZZ Fluoroscopy of Multiple Coronary Arteries using Low Osmolar Contrast (ICD-10-PCS; 2018-12-01)
PROC: 5A1D80Z Performance of Urinary Filtration, Prolonged Intermittent, 6-18 hours Per Day (ICD-10-PCS; 2018-12-01)
PROC: B246ZZ4 Ultrasonography of Right and Left Heart, Transesophageal (ICD-10-PCS; 2018-12-02)
PROC: 5A1D80Z Performance of Urinary Filtration, Prolonged Intermittent, 6-18 hours Per Day (ICD-10-PCS; 2018-12-02)
DX: I25.10 Atherosclerotic heart disease of native coronary artery without angina pectoris (principal); N18.6 End stage renal disease; I69.354 Hemiplegia and hemiparesis following cerebral infarction affecting left non-dominant side; I45.2 Bifascicular block; I13.2 Hypertensive heart and chronic kidney disease with heart failure and with stage 5 chronic kidney disease, or end stage renal disease; I50.32 Chronic diastolic (congestive) heart failure; I48.2 Chronic atrial fibrillation; M10.9 Gout, unspecified; E78.5 Hyperlipidemia, unspecified; J40 Bronchitis, not specified as acute or chronic; K59.09 Other constipation; D63.1 Anemia in chronic kidney disease; I34.0 Nonrheumatic mitral (valve) insufficiency; I87.8 Other specified disorders of veins; I49.3 Ventricular premature depolarization; F41.9 Anxiety disorder, unspecified; Z95.0 Presence of cardiac pacemaker; Z79.01 Long term (current) use of anticoagulants; Z95.5 Presence of coronary angioplasty implant and graft; Z99.2 Dependence on renal dialysis; Z79.899 Other long term (current) drug therapy; Z98.84 Bariatric surgery status; Z82.49 Family history of ischemic heart disease and other diseases of the circulatory system; Z88.8 Allergy status to other drugs, medicaments and biological substances
CPT/HCPCS: 36415; 71275; 76942; 80048; 80053; 83735; 85025; 87340; 90945; 93005; 93312; 93458; 94640; 96374; 99152; 99153; C1760; G0257; J1644; J2250; J2270; J2704; J3010; J7620; Q9966; Q9967

== ENCOUNTER 2018-12-14 17:23 | Inpatient (IN) | payer MEDICARE ==
[~2018-12-14 17:23] MED LIST: ISOVUE-370 76%-LOCM 1 ML ONE
[2018-12-14 17:54] LABS: #Basophils 0.1 thou/uL (0.0-0.2); #Eosinphils 0.2 thou/uL (0.0-0.7); #Lymphocytes 0.6 thou/uL (1.20-3.40); #Monocytes 0.7 thou/uL (0.11-0.59); #Neutrophils 5.6 thou/uL (1.40-6.50); %Basophils 0.8 % (0.0-1.0); %Lymphocytes 8.8 % (21.0-51.0); %Monocytes 9.5 % (0.0-10.0); Hemoglobin 9.9 g/dL (14.0-18.0); Mean Corpuscular HGB CONC 31.1 g/dL (32.0-36.0); Mean Corpuscular Hemoglobin 25.8 pg (27.0-31.0); Mean Corpuscular Volume 82.9 fL (78.0-98.0); Mean Platelet Volume 9.6 fL (7.4-10.4); Platelet Count 150 thou/uL (130-400); RBC Distribution Width 16.2 % (11.5-14.5); Red Blood Cell (RBC) Count 3.85 mill/uL (4.70-6.10); White Blood Cell (WBC) Count 7.2 thou/uL (4.8-10.8)
[2018-12-14 18:09] LABS: ALT (SGPT) 21 U/L (8-55); AST (SGOT) 18 U/L (5-34); Albumin 3.4 g/dL (3.5-5.0); Alkaline Phosphatase 137 U/L (40-150); Anion Gap 15 mmol/L (10-20); BUN (Urea Nitrogen) 69 mg/dL (8.9-20.6); Bilirubin, Total 0.5 mg/dL (0.2-1.2); Calc. Creatinine Clearance 0 mL/min (70-130); Calcium 9.6 mg/dL (7.8-10.44); Carbon Dioxide 21 mmol/L (22-29); Chloride 104 mmol/L (98-107); Estimated GFR-MDRD 8; Glucose 95 mg/dL (70-105); Lipase 57 U/L (8-78); Magnesium 1.8 mg/dL (1.6-2.6); Potassium 3.7 mmol/L (3.5-5.1); Protein, Total 5.4 g/dL (6.0-8.3); Sodium 136 mmol/L (136-145)
[2018-12-14 18:33] LABS: CKMB 1.3 ng/mL (0-6.6)
[2018-12-14 18:35] LABS: Bilirubin Negative (Negative); Blood, Urine Negative (Negative); Clarity CLEAR (Clear); Glucose, Urine (Dipstick) 100 mg/dL (Negative); Leukocyte Small (Negative); Nitrite Negative (Negative); Protein, Urine (Dipstick) 100 mg/dL (Neg-Trace); Urobilinogen 0.2 mg/dL (0.2-1.0)
[2018-12-14 18:38] LABS: Bacteria/HPF None Seen HPF (None Seen); Hyaline Casts/LPF 0-3 HYALINE CAST LPF (0-3 Hyaline); Pathc Cast-AUWi Flag 0.43 (0-2.49); RBC/HPF 0-3 HPF (0-3); Squamous Epithelial 0-3 HPF (0-3)
[2018-12-14] MEDS ORDERED: Morphine 4 MG/ML VIAL ONE ×2 (18:47→20:05)
--- NOTE | 2018-12-14 18:47 | RAD ---
AP CHEST: History: Chest pain. FINDINGS: Cardiomegaly. Mild vascular congestion. No focal infiltrate or significant effusion. Single pacemaker device is again noted, unchanged in appearance from 11-30-18. IMPRESSION: Borderline cardiomegaly and mild vascular engorgement, similar to the prior exam. POS: [facility]
[2018-12-14] MEDS ORDERED: Nitroglycerin 2% Ointment 1 INCH/1 GM Packet ONE (19:30)
[2018-12-14] MEDS ORDERED: Nitroglycerin 50 MG/250 ML BOT 250 ML ONE (20:05)
[2018-12-14] MEDS ORDERED: Metoprolol Tartrate 5 MG/5 ML VIAL ONE (20:05)
[2018-12-14] MEDS ORDERED: Metoprolol Tartrate 50 MG TAB ONE (20:53)
[2018-12-14] MEDS: Metoprolol Tartrate 100 MG TAB PO SCH (20:56)
[2018-12-14] MEDS ORDERED: cloNIDine 0.3 MG TAB PO SCH ×2 (21:00→23:00)
--- NOTE | 2018-12-14 22:28 | CT ---
CT AORTOGRAM CHEST AND ABDOMEN: 12/14/18 Multiple axial tomograms obtained through the chest and abdomen following aortogram protocol with mul tiplanar reconstructions and 3D postprocessing with IV contrast enhancement in the arterial phase. INDICATIONS: Chest pain. FINDINGS: Thoracic aorta shows mild atherosclerotic change. No evidence of dissection. No evidence of aneurysma l dilatation. Abdominal aorta shows mild atherosclerotic change. No dissection or aneurysm. Origin of the celiac artery and superior mesenteric artery unremarkable. A calcified plaque at the origin of the right renal artery produces mild to moderate stenosis which d oes not appear to be hemodynamically significant estimated in the 25 to 30% range. There are two left renal arteries without evidence of renal artery stenosis. Aortic bifurcation is patent and the common iliac arteries are unremarkable. The pulmonary arteries are opacified and there is no evidence of proximal pulmonary embolus. Lungs sh ow no evidence of focal infiltrate. Mild atelectasis in the left lung base. Nonspecific mediastinal and hilar lymph nodes slightly more prominent in the right hilar region. A ri ght infrahilar lymph node measures up to 2.0 cm. Liver, spleen and pancreas unremarkable. The kidneys are mildly heterogeneous. There are numerous low density cystic lesions in both kidneys w hich are too numerous to count. Most of these cysts are subcentimeter with the largest measuring up t o 2 cm. there is a hyperdense complex lesion which is exophytic from the right renal cortex laterally measuring 1.7 cm. This lesion will need to be followed up. This is a new lesion when compared to CT abdomen of 06/22/15 which increases suspicion. Bowel loops unremarkable. IMPRESSION: 1. No evidence of thoracic or abdominal aortic dissection or aneurysm. 2. There is a hyperdense complex mass in which is exophytic from the upper lateral right renal c ortex measuring 1.7 cm. This lesion was not present on exam of 2015. Recommend urologic consultation and followup. Neoplasm cannot be excluded. This may be an enhancing mass on this postcontrast study. 3. Numerous bilateral renal cystic lesions most of which are subcentimeter. These finding are st able from 2015. 4. Nonspecific mediastinal and hilar adenopathy. 5. Cardiomegaly. Code T POS: [facility]
[2018-12-14] MEDS ORDERED: Zolpidem Tartrate 5 MG TAB PO PRN (22:42)
[2018-12-14] MEDS ORDERED: Nitroglycerin 50 MG/250 ML BOT 250 ML IVPB SCH (22:45)
--- NOTE | 2018-12-14 22:45 | CON ---
DATE OF CONSULTATION: HISTORY OF PRESENT ILLNESS: The patient is an unfortunate 48-year-old with severe coronary artery disease, who presents with recurrent chest discomfort. The patient was seen approximately 2 weeks ago with chest discomfort. He underwent a cardiac catheterization and was found to have severe 3-vessel coronary artery disease. He subsequently underwent CV Surgery consultation and was recommended the patient undergo coronary bypass surgery. The patient had bronchitis and was sent home and was going to undergo outpatient coronary bypass graft surgery. The patient today developed a persistent midsternal chest discomfort. The patient came to the emergency room for evaluation. The patient has been on medical therapy. He continues to have chest discomfort. PAST MEDICAL HISTORY: 1. Coronary artery disease. 2. End-stage renal disease. 3. Hypertension. 4. History of atrial fibrillation. 5. History of AV thrombosis. PAST SURGICAL HISTORY: AV fistula, appendectomy and , tonsillectomy. SOCIAL HISTORY: Nonsmoker. MEDICATIONS: See nursing list. PHYSICAL EXAMINATION: GENERAL: Ill-appearing gentleman, in mild distress. VITAL SIGNS: Blood pressure of 150/70. NECK: No jugular venous distention. LUNGS: Clear to auscultation. HEART: Regular rate and rhythm. Normal S1, S2. ABDOMEN: Distended. EXTREMITIES: Show he has an AV fistula. LABORATORY RESULTS: Sodium 136, potassium 3.7, chloride 104, bicarbonate 21, BUN 69, creatinine 7.55. Troponin was 0.040. BNP is 1923. White blood cell count 7.2, hemoglobin 8.8, hematocrit 31.9, platelets are 150. EKG revealed an electronic pacemaker. IMPRESSION: 1. Unstable angina. 2. History of severe 3-vessel coronary artery disease. 3. Hypertension. 4. End-stage renal disease. This gentleman presents with recurrent chest discomfort. He is being treated with IV nitroglycerin. Cardiac enzymes reveal evidence of a myocardial infarction. I would be concerned about the possibility of an aortic dissection. The patient will undergo a CT scan. The patient will be admitted to the ICU. Cardiovascular Surgery will consult. The patient is in critical condition. We will follow this patient with you through this hospitalization. Critical care note time 1 hour. Job ID: [id number] MTDD
[2018-12-14] MEDS ORDERED: Acetaminophen 325 MG TAB PO PRN (22:50)
[2018-12-14] MEDS ORDERED: Ondansetron ODT 4 MG TAB PO PRN (22:50)
[2018-12-14] MEDS ORDERED: Ondansetron PF 4 MG/2 ML Vial IVP PRN (22:50)
[2018-12-14] MEDS: Morphine 4 MG/ML VIAL SLOW IVP PRN (22:58)
[2018-12-14] MEDS ORDERED: ALPRAZolam 0.5 MG TAB PO SCH (23:50)
--- NOTE | 2018-12-14 23:56 | CON ---
DATE OF CONSULTATION: 12/14/2018 CONSULTING PHYSICIAN: ED physician. REASON FOR CONSULTATION: End-stage renal disease management. CHIEF COMPLAINT: Acute onset of chest pain. HISTORY OF PRESENT ILLNESS: The patient is a 48-year-old male, with known history of end-stage renal disease, most likely from uncontrolled hypertension on peritoneal dialysis, coronary artery disease status post multiple [place] and stent placement, chronic CHF, as well as atrial fibrillation and flutter, who presents to the emergency room with acute onset of left-sided chest pain with radiation to the left upper arm associated with heaviness and paresthesia as well as nausea, shortness of breath, and dry heaving. Chest pain reportedly persisted despite nitroglycerin and aspirin. The patient continues to have chest pain which he rates as a 6/10. Nephrology consult was requested for end-stage renal disease management. The patient is a known cardiac disease patient for which coronary artery bypass is contemplated and planning in progress. The patient's regular home delivery driver is Dr. Rashid. The patient reportedly does 4 exchanges with 1.5 alternating with 2.5 with no day dwell. He continues to make urine. He denied abdominal pain or change in color of drainage. There is no history of fever, dysuria, hematuria, hematemesis, hematochezia, or ill feeling. Admitted to bilateral leg swelling which has not worsened. PAST MEDICAL HISTORY: 1. Ischemic CVA status post tPA, August 2018. 2. Multiple CVAs with mild residual weakness bilaterally. 3. End-stage renal disease on PD. 4. Chronic congestive heart failure. 5. Coronary artery disease status post multiple stents. 6. Atrial fibrillation on chronic anticoagulation with Eliquis. 7. Sick sinus syndrome status post pacemaker placement. 8. History of gout. 9. Chronic pain syndrome on chronic narcotic therapy. 10. Dyslipidemia. SURGICAL HISTORY: 1. Left upper arm AV fistula. 2. Appendectomy. 3. Pacemaker placement. 4. PD catheter placement. 5. Lap band surgery. 6. Tonsillectomy. FAMILY HISTORY: Significant for coronary artery disease in both parents. Mother also had peripheral artery disease. SOCIAL HISTORY: The patient is and lives with family. Denied current alcohol, tobacco, or recreational drug use. Reportedly ambulates at home with cane. ALLERGIES: THE PATIENT REPORTS ALLERGIC REACTION TO CODEINE, BUT TOLERATES MORPHINE OFF THIS. THE ALLERGIC REACTION OR ADVERSE REACTION IS UNCLEAR AT THIS TIME. HOME MEDICATIONS: 1. Diltiazem 240 mg p.o. b.i.d. 2. Toprol-XL (metoprolol) 100 mg b.i.d. 3. Clonidine 0.3 mg t.i.d. 4. Eliquis 2.5 mg b.i.d. 5. Lipitor 10 mg at bedtime. 6. Bumetanide 2 mg p.o. b.i.d. 7. Cinacalcet 60 mg daily. 8. Oxycodone 20 mg p.r.n. every 4 hours. 9. Sevelamer 1600 mg b.i.d. with meals. 10. Ambien 10 mg at bedtime p.r.n. PHYSICAL EXAMINATION: VITAL SIGNS: BP 120/67, pulse 60, respiratory rate 18, SpO2 of 97 on room air. Pain is rated at 7/10. GENERAL: Middle aged male in mild painful distress. Afebrile, anicteric, and acyanotic. HEENT: Normocephalic, atraumatic. Extraocular muscles are intact. Oral mucosa is moist. NECK: Supple and nontender with full range of motion. RESPIRATORY: Good air entry bilateral with few bibasilar crackles, especially posteriorly. Right upper chest wall pacemaker noted. CARDIOVASCULAR: Regular rhythm and rate. Normal heart sounds 1 and 2. GI: Abdomen is full, soft, nontender, nondistended with normal bowel sounds. PD catheter is noted. EXTREMITIES: Mild to moderate bilateral leg edema noted. There is no erythema or cyanosis or bruise noted. Left upper extremity AV fistula noted. SKIN: Grossly normal looking with no rash appreciated. NEUROLOGIC: Conscious and alert, oriented x3 with appropriate mental status. Cranial nerve is grossly intact. The patient moves all extremities. DIAGNOSTIC DATA: CBC showed WBC count of 7.2, hemoglobin of 9.9, platelet of 150. CMP showed sodium 136, potassium 3.7, chloride 104, CO2 of 21, BUN 69, creatinine 7.55, glucose 95, calcium 9.6, bilirubin 0.5, total protein 5.4, albumin 3.4, globulin 2.0, alkaline phosphatase 137, AST 18, ALT 21. Initial troponin was marginally elevated at 0.041 (normal should be less than 0.028). Magnesium is 1.8. Lipase is 57. EKG showed paced rhythm with rate of 60. Chest x-ray showed borderline cardiomegaly and mild vascular congestion similar to prior exam. ASSESSMENT AND PLAN: 1. End-stage renal disease on peritoneal dialysis. Will do peritoneal dialysis using his regular regimen of 4 exchanges without day dwell. We will alternate 1.55 with 2.5% PD solutions. We will continue diuretic. We will change to 2.5% PD solution if UF is not adequate. 2. Volume status: The patient is mildly fluid overloaded. We will continue diuretics and monitor UF. Will switch to 2.5% PD solution if UF is inadequate. 3. Hypertension: Control is acceptable. We will continue his current medications. 4. Acute coronary syndrome given intractable chest pain: The patient is known to have multiple vessel disease on recent cardiac angiogram and CABG is recommended. The patient is currently being managed by Cardiology and aortic resection is to be ruled out with CT. We would defer treatment of cardiac issues to the wire preparation worker and primary attending. Many thanks for involving us in the care of this patient. We will continue to follow along with you. Job ID: [id number] [facility] SYSTEMImelda
[2018-12-15] MEDS ORDERED: ALPRAZolam 0.5 MG TAB PO SCH (00:15)
[2018-12-15 00:33] LABS: Troponin I 0.038 ng/mL (< 0.028)
[2018-12-15] MEDS: Morphine 4 MG/ML VIAL SLOW IVP PRN ×2 (02:17→05:55)
[2018-12-15 05:05] LABS: #Eosinphils 0.3 thou/uL (0.0-0.7); #Lymphocytes 0.8 thou/uL (1.20-3.40); #Monocytes 0.8 thou/uL (0.11-0.59); #Neutrophils 4.6 thou/uL (1.40-6.50); %Basophils 0.3 % (0.0-1.0); %Eosinophils 4.3 % (0.0-10.0); %Lymphocytes 12.3 % (21.0-51.0); %Neutrophils 71.1 % (42.0-75.0); Hemoglobin 9.2 g/dL (14.0-18.0); Mean Corpuscular HGB CONC 31.1 g/dL (32.0-36.0); Mean Corpuscular Volume 83.7 fL (78.0-98.0); Mean Platelet Volume 9.1 fL (7.4-10.4); Platelet Count 161 thou/uL (130-400); RBC Distribution Width 16.1 % (11.5-14.5); Red Blood Cell (RBC) Count 3.52 mill/uL (4.70-6.10); White Blood Cell (WBC) Count 6.5 thou/uL (4.8-10.8)
[2018-12-15 05:28] LABS: Anion Gap 11 mmol/L (10-20); BUN (Urea Nitrogen) 66 mg/dL (8.9-20.6); Calc. Creatinine Clearance 18 mL/min (70-130); Calcium 9.6 mg/dL (7.8-10.44); Carbon Dioxide 25 mmol/L (22-29); Chloride 104 mmol/L (98-107); Estimated GFR-MDRD 8; Glucose 103 mg/dL (70-105); Potassium 3.5 mmol/L (3.5-5.1); Sodium 136 mmol/L (136-145)
--- NOTE | 2018-12-15 07:23 | HP ---
PRIMARY CARE PHYSICIAN: Dr. Felipe Rashid. CODE STATUS: Full code. TIME OF EVALUATION: 8:40 p.m. CHIEF COMPLAINT: Chest pain. HISTORY OF PRESENT ILLNESS: This is a 48-year-old male patient with past medical history of AFib, HI x2, multiple stents, hypertension, CVA x4 with left-sided deficit, end-stage renal disease, on peritoneal dialysis, and CHF, came to the hospital after having severe chest pain that started around 2:00 p.m. in the middle of the chest, radiating to the left side and left arm, the patient reported the pain as heaviness. The patient reported that he had a cardiac cath done a couple of weeks ago that showed the patient had triple vessel disease and for that reason , he was recommended to have CABG. Because of some mild infection, the surgery was postponed. The patient reported he started having severe pain again and then he decided to come to the hospital for that reason. Dr. Ruiz has been consulted. Recommendation is made to have CABG done. He will be placed in ICU, on nitroglycerin drip, will follow Cardiology recommendations. REVIEW OF SYSTEMS: CONSTITUTIONAL: No fever, chills, or generalized weakness. RESPIRATORY: No cough, sputum production, or shortness of breath. CARDIOVASCULAR: The patient has chest pain. No palpitation. GASTROINTESTINAL: No nausea, no vomiting, diarrhea, or abdominal pain. CENTRAL NERVOUS SYSTEM: No dizziness, headache, or feeling lightheaded. GENITOURINARY: No burning on urination. EXTREMITIES: No leg swelling. All other systems were reviewed and negative except for the findings mentioned above. PAST MEDICAL HISTORY: Positive for the findings mentioned in the HPI. PAST SURGICAL HISTORY: The patient has 2 stents in the heart and 1 stent in the arm, pacemaker, lap band surgery, appendectomy, orthopedic surgery, right knee lateral meniscus repair and tonsillectomy and AV shunt graft to left arm for dialysis and removal of fistula. PSYCHIATRIC HISTORY: Includes anxiety. FAMILY HISTORY: Reviewed, noncontributory to current presentation. SOCIAL HISTORY: No alcohol. No drugs. No smoking history. KNOWN ALLERGIES: To codeine. REPORTED MEDICATION: 1. Ambien. 2. Clonidine. 3. Bumetanide. 4. Cardizem LA. 5. Metoprolol. 6. Atorvastatin. 7. Sensipar. 8. Sevelamer. 9. Eliquis. PHYSICAL EXAMINATION: VITAL SIGNS: On presentation, blood pressure was 116/91 with heart rate 60, respiratory rate was 18, temperature 97.6, and oxygen saturation 97% on room air. GENERAL APPEARANCE: The patient is alert, oriented, not in acute distress. HEENT: Eyes; normal conjunctivae. Moist oral mucosa. Anicteric. NECK: No JVD. RESPIRATORY: Bilateral air entry. No rales. No wheezes. Symmetric expansion. CARDIOVASCULAR: Normal rate, regular rhythm. No murmurs. No gallops. No edema. ABDOMEN: Soft. Normal bowel sounds. MUSCULOSKELETAL: Baseline range of motion and strength. No tenderness. SKIN: Warm, intact. No pallor. No rash. No redness. VASCULAR: Peripheral pulses are present. Capillary refill seems to be intact. NEUROLOGIC: No evidence of any new focal weakness. Baseline speech. Cranial nerves seems to be intact. PSYCH: The patient has good mood. No anxiety. Optimal judgment. DIAGNOSTIC DATA: EKG was reviewed. The patient has electronic pacemaker with a rate of 60 with QRS 180 and QT correct 415. Labs were reviewed. The patient has white count of 7.2, hemoglobin 9.9, and platelet count 150. Sodium 136, potassium 3.7, chloride 104, carbon dioxide 21, anion gap 15, BUN 69, creatinine 7.55, GFR was 8, glucose 95, calcium 9.6, magnesium 1.8, total bilirubin 0.5, AST 18, ALT 21, and alkaline phosphatase 437. CK-MB 1.3. Troponin was mildly elevated at 0.041, the second one 0.040, the third one 0.038. Brain natriuretic peptide was 1923. The patient has the same level of troponin in previous admissions. UA was done. The patient has white count 7 to 10, small urine leukocyte esterase. CT dissection protocol was done. 1. There is no evidence of a thoracic lower abdominal aortic dissection for whatever reason. 2. There is a in the exophytic form of the upper lateral right renal cortex measuring 1.7 cm. This lesion was not present in 2015. Recommend neurological consultation may be enhancing mass with a postcontrast study. 3. Bilateral renal cysts, which are subcentimeter, these findings are stable since 2015. 4. Nonspecific mediastinal lymphadenopathy. 5. Cardiomegaly. Chest x-ray, the patient has borderline cardiomegaly and mild vascular engorgement similar to the prior exam. ASSESSMENT AND PLAN: The patient will be placed in the hospital with following medical problems: 1. Unstable angina. The patient will be placed in nitroglycerin drip. The patient has triple vessel disease. Has been recommended to have coronary artery bypass grafting after last cath done [address] John. Vascular Surgeon has been consulted. Dr. Ruiz is on the case. We will follow recommendation. The patient has been stable, although with continuous ongoing pain overnight, most likely surgery to be planned. 2. Chronic normocytic anemia. This is likely secondary to underlying chronic kidney disease. The patient is a peritoneal dialysis patient. We will defer treatment for anemia to Nephro. 3. End-stage renal disease, on peritoneal dialysis. The patient is following with Dr. Lewis here in the hospital and need to be consulted for further hemodialysis treatment in the hospital. 4. History of non-ST elevation myocardial infarction. The patient has some decreased troponin. The patient has triple vessel disease, treatment as #1. 5. Controlled hypertension, reconcile home medications. Adjust treatment as needed. 6. History of atrial fibrillation, this problem is controlled. The patient has a pacemaker, that is, with a paced rhythm. The patient was on blood thinners that will be hold for now due to possible procedure. 7. Deep vein thrombosis prophylaxis. critical care time >35 min spent on bedside assessment, patient counseling, review and elaboration of records, stabilization of critical patient Job ID: [id number] MTDD
[2018-12-15] MEDS: ALPRAZolam 0.5 MG TAB PO SCH ×2 (08:02→20:43)
[2018-12-15] MEDS: Bumetanide 1 MG TAB PO SCH ×2 (08:02→20:43)
[2018-12-15] MEDS: Cinacalcet HCl 30 MG TAB PO SCH (08:03)
[2018-12-15] MEDS: Aspirin 81 mg Enteric Coated Tablet PO SCH (08:03)
[2018-12-15] MEDS: Sevelamer Carbonate 800 MG TAB PO SCH ×2 (08:03→16:52)
[2018-12-15] MEDS: Metoprolol Tartrate 100 MG TAB PO SCH ×3 (08:05→20:44)
[2018-12-15] MEDS ORDERED: Enoxaparin Sodium 40 MG/0.4 ML SYRINGE SC SCH (09:00)
[2018-12-15] MEDS ORDERED: cloNIDine 0.3 MG TAB PO SCH (09:00)
[2018-12-15] MEDS ORDERED: Metoprolol Tartrate 100 MG TAB PO SCH (09:00)
[2018-12-15] MEDS: oxyCODONE 5 MG TAB PO PRN ×3 (09:07→20:59)
[2018-12-15] MEDS: cloNIDine 0.3 MG TAB PO SCH ×2 (12:25→20:44)
--- NOTE | 2018-12-15 12:56 | ULT ---
ULTRASOUND CAROTID DOPPLER STANDARD: History: Stroke. CVA. Comparison: None. Technique: Real-time grayscale with color doppler and spectral analysis of the extracranial, carotid, and vertebral arteries was performed. FINDINGS: There is antegrade to both vertebral arteries. No hemodynamically significant stenosis within the int ernal carotid arteries. IMPRESSION: No hemodynamically significant stenosis. POS: TPC
[2018-12-15] MEDS ORDERED: Communication Order-Pharmacy FS ONE (14:22)
--- NOTE | 2018-12-15 16:34 | CON ---
DATE OF CONSULTATION: 12/15/2018 PRIMARY CARE PHYSICIAN: Dr. Rashid. CHIEF COMPLAINT: Chest pain. HISTORY OF PRESENT ILLNESS: The patient is a 48-year-old man on peritoneal dialysis, who was in the hospital about 2 weeks ago with chest pain, found to have severe coronary artery disease including a calcified ostial LAD lesion. The patient also had severe mitral regurgitation and in reviewing studies, this is worsened and his cardiac silhouette has enlarged over the period of the last 2 or 3 years. At that time, the discussion was had about scheduling coronary artery bypass grafting and mitral valve repair or replacement, but the timing of it was deferred because of recent febrile illness that the patient had. He had done reasonably well. Since going home, he has not had any recurrence of fever, but did have recurrence of severe chest pain radiating into his left arm. PAST MEDICAL HISTORY: Significant for extensive cerebrovascular disease, end-stage renal disease, chronic atrial fibrillation with pacemaker dependence, history of gout, dyslipidemia, chronic pain syndrome. Because of consistent subtherapeutic INRs on Coumadin, he was switched from Coumadin to Eliquis 2.5 mg p.o. b.i.d. at his last hospitalization. His last dose was the evening of December 13. MEDICATIONS: His other home medications include: 1. OxyContin 20 mg every 4 hours. 2. Xanax 2 mg b.i.d. 3. Clonidine 0.3 mg p.o. t.i.d. 4. Lopressor 100 mg p.o. b.i.d. 5. Diltiazem CD 240 mg p.o. b.i.d. 6. Lipitor 10 mg at bedtime. 7. Baby aspirin a day. 8. Cinacalcet 60 mg a day. 9. Renvela 1600 mg p.o. b.i.d. 10. P.r.n. Ambien. He had chest pain much since the day yesterday and his nitroglycerin drip is being weaned off as his pain has come under control. ALLERGIES: THE PATIENT REPORTS AN ALLERGY TO CODEINE, WHICH CAUSES A RASH. SOCIAL HISTORY: He has not smoke or drink. Both of his parents had coronary artery disease. His mother had severe peripheral vascular disease. REVIEW OF SYSTEMS: Negative for any more fever. It is positive for some exacerbation of some baseline stuttering that he has when he gets anxious. PHYSICAL EXAMINATION: GENERAL: He appears older than his stated age. He is 5 feet and 9 inches, weighs 221 and 1/4 pounds. VITAL SIGNS: Heart rate is 58, blood pressure 151/62, room air O2 saturations are 96%, and T-max this hospitalization has been 98.4. HEENT: He has no xanthelasma. NECK: No JVD. No carotid bruits. CHEST: Clear to auscultation. He has an irregularly irregular rate and rhythm. I again was unable to appreciate any murmurs or gallops. ABDOMEN: Soft and nontender. He has a peritoneal dialysis catheter in place. EXTREMITIES: He has brachiocephalic AV fistula on the left side near the anastomotic end. The official is rather hard masking the underlying good pulse that is appreciable and the rest of the fistula was not able to palpate. Radial pulses on either side. He has palpable dorsalis pedis pulses bilaterally. LABORATORY DATA: Laboratory exam shows a white count of 7.2, hemoglobin 9.9, platelet of 150,000. His electrolytes are normal. Glucose 103, BUN 66, creatinine 7.2. His troponins were 0.041, 0.040, and 0.038, which is very similar to what his serial troponins were when he was in the hospital 2 weeks ago. His BNP is 1923.9. His albumin was 3.4, calcium was 9.6, magnesium 1.8. His chest x-ray shows some improvement in his pulmonary edema. He had no calcifications in his ascending aorta. The carotid ultrasound that I ordered showed calcific plaquing, but no significant stenosis. On the right side, his internal carotid velocities were 67, 76, and 89 and in the common, 115, 99, and 83, for a ratio of 0.77. On the left, his internal carotid velocities were 51, 84, and 62 and in the common, 101, 107, and 86 for a ratio of 0.79. IMPRESSION AND RECOMMENDATIONS: I am going to repeat his echocardiogram to reassess his ventricle and his mitral regurgitation. With respect to letting his Eliquis wear off, the end of the week would probably be adequate timing, but our schedule is going to make that quite problematic, so I am going to post his surgery for Thursday. Job ID: [id number]
--- NOTE | 2018-12-15 17:54 | PRG ---
DATE OF SERVICE: 12/15/2018 SUBJECTIVE: The patient was seen and examined with no new complaint, noted with the following vital signs. OBJECTIVE: VITAL SIGNS: Afebrile, temperature 98.5, pulse 60, respiratory rate of 15, blood pressure 136/59, O2 saturation 98%. HEENT: Unremarkable. CARDIOVASCULAR: First and second heart sounds are heard. RESPIRATORY: Clear to auscultation. DIGESTIVE: Revealed a benign abdomen. Positive bowel sounds. EXTREMITIES: No peripheral edema. SKIN: No new gross rash. LYMPHATICS: No peripheral lymphadenopathy. IMPRESSION: 1. End-stage renal disease, on peritoneal dialysis. 2. Chest pain in a patient with known multivessel coronary artery disease. 3. Hypertension. PLAN: 1. According to the dialysis note, the patient's peritoneal dialysis seems not to be ultrafiltrate in this patient very well. We will go ahead and increase the concentration of dialysis to 2.5%. If the patient continues not to ultrafiltrate very well, we will make a decision to transition over to hemodialysis, especially around the time of coronary artery bypass surgery. 2. Further management to be dependent on the clinical course. Job ID: [id number]
--- NOTE | 2018-12-15 19:26 | PDOC.CTH ---
Cardiology Progress Note - Subjective Currently pain free. No other issues. - Objective Vital Signs Temp Pulse BP Pulse Ox 12/15/18 16:00 98.5 F 12/15/18 12:25 154/76 H 12/15/18 08:03 62 118/33 L 12/15/18 08:00 94 L Weight 221 lb 5.506 oz 12/14/18 12/15/18 12/16/18 06:59 06:59 06:59 Intake Total 1266 1008 Output Total 450 200 Balance 816 808 - Physical Examination General/Neuro: alert & oriented x3, NAD Neck: no JVD present Lungs: CTA, unlabored respirations Heart: RRR Abdomen: NT/ND Extremities: other: (Trace) - Telemetry Telemetry Rhythm: NSR - Labs Result Diagrams: 12/15/18 04:28 12/15/18 04:28 Troponin/CKMB CK-MB (CK-2) 1.3 ng/mL (0-6.6) 12/14/18 17:42 Troponin I 0.038 ng/mL (< 0.028) H 12/14/18 23:50 - Assessment/Plan 1. Unstable angina 2. Severe multivessel CAD. 3. ESRD on PD 4. HTN PLAN: - Continue nitro drip. - Remain in the ICU until CABG and MARIA ANTONIA ligation. - Bed rest with bathroom privilidges.
[2018-12-15] MEDS: Atorvastatin Calcium 10 MG TAB PO SCH (20:52)
--- NOTE | 2018-12-15 20:57 | PRG ---
DATE OF SERVICE: 12/15/2018 SUBJECTIVE: Jeovany Dominguez is a gentleman who was identified as having coronary artery disease recently. It was felt that he had bronchitis, so they wanted to wait for surgery. He had a prolonged period of chest pain making his left arm numb. This did not go away until we got on a nitroglycerin drip in the emergency room. He is tentatively being evaluated for coronary artery bypass grafting. He is in the critical care unit. PAST MEDICAL HISTORY: Remarkable for: 1. Atrial fibrillation. 2. History of myocardial infarction. 3. History of multiple coronary stents. 4. History of hypertension. 5. History of CVAs in the past. 6. End-stage renal disease, on peritoneal dialysis. 7. He has a history of pacemaker. 8. History of Lap-Band. 9. History of appendectomy. 10. History of meniscus repair in his right knee. 11. History of tonsillectomy. 12. History of vascular access procedures. SOCIAL HISTORY: He is not smoking or drinking. FAMILY HISTORY: Negative for lung disease in early age. REVIEW OF SYSTEMS: Ten-point review of systems completed, otherwise negative. He denies having chest discomfort. PHYSICAL EXAMINATION: GENERAL: He is in no distress. He is still on nitroglycerin drip. VITAL SIGNS: He is afebrile. Heart rate is in the 60s, blood pressure 118/49, respiratory rate 19, oximetry is 97%. HEENT: Pupils are equal. Sclerae are anicteric. NECK: Supple. No lymphadenopathy. LUNGS: Clear. HEART: Regular rhythm. S1 and S2 are normal. ABDOMEN: Soft and nontender. EXTREMITIES: Without clubbing, cyanosis, or edema. LABORATORY DATA: White count 6.5, hemoglobin 9.2, platelets 161. Sodium 136, potassium 3.5, chloride 104, bicarb 25, BUN 66, creatinine 7.2. Chest x-ray shows mild pulmonary edema, done yesterday at [address] was done showing two left renal arteries. Mild atelectasis is seen at the left lung base. 2 cm right infrahilar node was seen. He does have a renal mass. It measures 1.7 cm, not present in 2015. Renal cysts are also seen. These are stable. IMPRESSION: 1. Coronary artery disease, tentatively being evaluated for bypass. 2. Renal mass. Will need to be worked up later. 3. Renal cysts, which are stable radiographically. 4. Small mediastinal and hilar nodes that are unlikely to be clinically significant in my opinion. 5. End-stage renal disease, on peritoneal dialysis. We will be happy to follow the other physicians caring for this gentleman. I answered all of his questions to the best of my ability. TIME SPENT: This is a 70-minute consult, with greater than 50% of the time spent on the unit coordinating care. Job ID: [id number] MTDD
--- NOTE | 2018-12-15 22:34 | PDOC.PN ---
- Subjective Encounter Start Date: 12/15/18 Encounter Start Time: 10:35 CP is improved. No new complaints. - Objective Resuscitation Status - Order Detail: 12/14/18 22:50 Resuscitation Status Routine Resuscitation Status: FULL: Full Resuscitation Vital Signs & Weight: Vital Signs (12 hours) Temp Pulse BP Pulse Ox 12/15/18 20:44 129/53 L 12/15/18 20:43 60 129/53 L 12/15/18 19:15 97 12/15/18 19:00 98.7 F 12/15/18 16:00 98.5 F 12/15/18 12:25 154/76 H Weight Weight 221 lb 5.506 oz Most Recent Monitor Data Heart Rate from ECG 60 NIBP 128/50 NIBP BP-Mean 70 Respiration from ECG 13 SpO2 97 I&O: 12/14/18 12/15/18 12/16/18 06:59 06:59 06:59 Intake Total 1266 1108 Output Total 450 200 Balance 816 908 Result Diagrams: 12/15/18 04:28 12/15/18 04:28 Phys Exam - Physical Examination Constitutional: NAD Respiratory: no wheezing, no rhonchi Right basilar rales. Cardiovascular: RRR, no significant murmur Gastrointestinal: soft, non-tender, no distention Musculoskeletal: no edema Chronic stasis dermatitis Psychiatric: normal affect, A&O x 3 Dx/Plan (1) ESRD (end stage renal disease) on dialysis Code(s): N18.6 - END STAGE RENAL DISEASE; Z99.2 - DEPENDENCE ON RENAL DIALYSIS Status: Acute (2) Unstable angina Status: Acute (3) Dyslipidemia Code(s): E78.5 - HYPERLIPIDEMIA, UNSPECIFIED Status: Chronic (4) HTN (hypertension) Code(s): I10 - ESSENTIAL (PRIMARY) HYPERTENSION Status: Chronic - Plan * Stable. Has CV surg eval pending. * Still on nitro gtt and weaning down. * Nephrology, Cardiology and CVS following.
[2018-12-16] MEDS: oxyCODONE 5 MG TAB PO PRN ×3 (04:40→20:21)
[2018-12-16] MEDS: Sevelamer Carbonate 800 MG TAB PO SCH ×2 (07:47→17:50)
[2018-12-16] MEDS: Cinacalcet HCl 30 MG TAB PO SCH (08:23)
[2018-12-16] MEDS: Enoxaparin Sodium 30 MG/0.3 ML SYRINGE SC SCH (08:23)
[2018-12-16] MEDS: cloNIDine 0.3 MG TAB PO SCH ×2 (08:24→20:21)
[2018-12-16] MEDS: Aspirin 81 mg Enteric Coated Tablet PO SCH (08:24)
[2018-12-16] MEDS: Metoprolol Tartrate 100 MG TAB PO SCH ×2 (08:24→20:21)
[2018-12-16] MEDS: ALPRAZolam 0.5 MG TAB PO SCH ×2 (08:30→20:20)
[2018-12-16] MEDS: Bumetanide 1 MG TAB PO SCH ×2 (08:30→20:20)
--- NOTE | 2018-12-16 15:30 | PDOC.PN ---
- Subjective Encounter Start Date: 12/16/18 Encounter Start Time: 14:00 Doing ok. No pain. Had some weakness in the right shoulder this morning that has resolved. Initially could only elevate to about 90 degrees. Did not have pain. - Objective Resuscitation Status - Order Detail: 12/14/18 22:50 Resuscitation Status Routine Resuscitation Status: FULL: Full Resuscitation Vital Signs & Weight: Vital Signs (12 hours) Temp Pulse BP Pulse Ox 12/16/18 08:24 164/43 H 12/16/18 08:23 60 164/43 H 12/16/18 08:00 98 12/16/18 07:00 98.0 F 12/16/18 04:00 98.5 F Weight Weight 221 lb 5.506 oz Most Recent Monitor Data Heart Rate from ECG 64 NIBP 156/53 NIBP BP-Mean 109 Respiration from ECG 11 SpO2 100 I&O: 12/15/18 12/16/18 12/17/18 06:59 06:59 06:59 Intake Total 1266 1788 525 Output Total 450 500 175 Balance 816 1288 350 Result Diagrams: 12/15/18 04:28 12/15/18 04:28 Phys Exam - Physical Examination Constitutional: NAD Respiratory: no wheezing, no rales, no rhonchi, clear to auscultation bilateral Cardiovascular: RRR II/ M LUSB Gastrointestinal: soft, non-tender, no distention, positive bowel sounds Trace edema LE's. Right shoulder with TTP at the AC joint. Nml PROM Able to fire all muscle groups. Actively raises >90 Neurological: non-focal Psychiatric: normal affect, A&O x 3 Dx/Plan (1) Unstable angina Status: Acute (2) ESRD (end stage renal disease) on dialysis Code(s): N18.6 - END STAGE RENAL DISEASE; Z99.2 - DEPENDENCE ON RENAL DIALYSIS Status: Acute (3) Dyslipidemia Code(s): E78.5 - HYPERLIPIDEMIA, UNSPECIFIED Status: Chronic (4) HTN (hypertension) Code(s): I10 - ESSENTIAL (PRIMARY) HYPERTENSION Status: Chronic (5) Atrial fibrillation Code(s): I48.91 - UNSPECIFIED ATRIAL FIBRILLATION Status: Chronic (6) Elevated troponin Code(s): R74.8 - ABNORMAL LEVELS OF OTHER SERUM ENZYMES Status: Acute Comment: Type II demand ischemia in ESRD - Plan * Plan is for bypass on Thursday. * Off the nitro gtt. * May be able to move to floor. * Grant held. On Lovenox.
--- NOTE | 2018-12-16 17:11 | PRG ---
DATE OF SERVICE: 12/16/2018 SUBJECTIVE: The patient is seen and examined with no new complaint. Hemodynamically stable. OBJECTIVE: VITAL SIGNS: Afebrile, temperature 98, pulse 60, blood pressure 164/43, and O2 saturations are 98%. HEENT: Unremarkable. CARDIOVASCULAR: First and second heart sounds were heard. RESPIRATORY : Clear to auscultation. DIGESTIVE: Revealed a benign abdomen with positive bowel sounds. EXTREMITIES: Showed minimal peripheral edema. SKIN: No new gross rash. LYMPHATICS: No peripheral lymphadenopathy. IMPRESSION: 1. End-stage renal disease, on peritoneal dialysis, but the peritoneal dialysis seems not to be ultrafiltrating this patient very well. The patient did 2.5% last night and was only able to have a UF of about 250 mL. 2. Coronary artery disease with a known multivessel disease. 3. Peripheral vascular disease, status post CVAs in the past. PLAN: 1. The patient to undergo coronary artery bypass surgery on Thursday and the patient needs to be maintained in an euvolemic state. Therefore, we will transition this patient away from peritoneal dialysis to hemodialysis with ultrafiltration as tolerated by hemodynamics. We will dialyze this patient tomorrow on Thursday and on Thursday prior to the coronary artery bypass surgery on Thursday. The patient during the postop period will also continue with hemodialysis in order to maintain euvolemic state, status post bypass surgery. 2. Further management will be dependent on the clinical course. Job ID: [id number]
--- NOTE | 2018-12-16 17:17 | PRG ---
DATE OF SERVICE: 12/16/2018 SUBJECTIVE: Jeovany Dominguez has had no chest pain since he was admitted. He said his right arm felt weak when he woke up this morning and he could lift it over his head, but he lifted his arm over his head for me when I was in the room. He has had no left arm numbness. OBJECTIVE: VITAL SIGNS: He is afebrile. Heart rate 60, blood pressure 155/57, respiratory rates in the teens. LUNGS: Clear. HEART: Regular rhythm. ABDOMEN: Soft and nontender. EXTREMITIES: Without clubbing, cyanosis, or edema. LABORATORY DATA: There is no new lab. IMPRESSION: 1. End-stage renal disease, on peritoneal dialysis. 2. Coronary artery disease. Waiting for bypass surgery. No recurrent chest pain since admission. We will be happy to follow the other physicians. He is stable at this time. Job ID: [id number] MTDD
--- NOTE | 2018-12-16 18:13 | PDOC.CTH ---
Cardiology Progress Note - Subjective No new issues. Chest pain stable unchanged from yesterday. - Objective Vital Signs Temp Pulse BP Pulse Ox 12/16/18 16:00 97.7 F 12/16/18 08:24 164/43 H 12/16/18 08:23 60 164/43 H 12/16/18 08:00 98 12/16/18 07:00 98.0 F Weight 221 lb 5.506 oz 12/15/18 12/16/18 12/17/18 06:59 06:59 06:59 Intake Total 1266 1788 525 Output Total 450 500 475 Balance 816 1288 50 - Physical Examination General/Neuro: alert & oriented x3, NAD Neck: no JVD present Lungs: unlabored respirations Heart: RRR Abdomen: NT/ND Extremities: other: (No edema) - Telemetry Telemetry Rhythm: NSR - Labs Result Diagrams: 12/15/18 04:28 12/15/18 04:28 Troponin/CKMB CK-MB (CK-2) 1.3 ng/mL (0-6.6) 12/14/18 17:42 Troponin I 0.038 ng/mL (< 0.028) H 12/14/18 23:50 - Assessment/Plan 1. Unstable angina 2. Severe multivessel CAD. 3. ESRD on PD 4. HTN PLAN: - Will add long acting nitro daily. - May transfer to telemetry - Awaiting CABG and MARIA ANTONIA ligation. - PD per Nephro.
[2018-12-16] MEDS: Atorvastatin Calcium 10 MG TAB PO SCH (20:20)
[2018-12-17] MEDS: oxyCODONE 5 MG TAB PO PRN ×3 (07:51→20:13)
[2018-12-17] MEDS: Sevelamer Carbonate 800 MG TAB PO SCH ×2 (07:53→15:55)
[2018-12-17] MEDS: Cinacalcet HCl 30 MG TAB PO SCH (08:37)
[2018-12-17] MEDS: cloNIDine 0.3 MG TAB PO SCH ×2 (08:37→20:14)
[2018-12-17] MEDS: Bumetanide 1 MG TAB PO SCH ×2 (08:37→20:12)
[2018-12-17] MEDS: Aspirin 81 mg Enteric Coated Tablet PO SCH (08:38)
[2018-12-17] MEDS: Enoxaparin Sodium 30 MG/0.3 ML SYRINGE SC SCH (08:38)
[2018-12-17] MEDS: Metoprolol Tartrate 100 MG TAB PO SCH ×2 (08:38→20:14)
--- NOTE | 2018-12-17 08:47 | PDOC.CTH ---
Cardiology Progress Note - Subjective He has left arm weakness today, he states he cant lift it above the shoulder, I can lift it for him but he cant hold it up. - Objective Vital Signs Pulse BP 12/17/18 08:37 60 126/53 L Weight 221 lb 5.506 oz 12/16/18 12/17/18 12/18/18 06:59 06:59 06:59 Intake Total 1788 915 Output Total 500 975 Balance 1288 -60 - Physical Examination General/Neuro: alert & oriented x3, NAD Neck: no JVD present Lungs: CTA, unlabored respirations Heart: RRR Abdomen: NT/ND Extremities: other: (no edema) - Telemetry Telemetry Rhythm: NSR - Labs Result Diagrams: 12/15/18 04:28 12/15/18 04:28 Troponin/CKMB CK-MB (CK-2) 1.3 ng/mL (0-6.6) 12/14/18 17:42 Troponin I 0.038 ng/mL (< 0.028) H 12/14/18 23:50 - Assessment/Plan 1. Unstable angina 2. Severe multivessel CAD. 3. ESRD on PD 4. HTN 5. Left arm weakness. 6. Hx of Afib. PLAN: - Continue current meds. - Will do CT head and if nobleeding will start a heparin drip for anticoagulation bridge and stroke prophylaxis. - Awaiting CABG and MARIA ANTONIA ligation. - PD per Nephro.
[2018-12-17] MEDS ORDERED: Enoxaparin Sodium 30 MG/0.3 ML SYRINGE SC SCH (09:00)
[2018-12-17] MEDS ORDERED: Enoxaparin Sodium 100 MG/ML SYRINGE SC SCH (09:00)
[2018-12-17] MEDS: ALPRAZolam 0.5 MG TAB PO SCH ×3 (09:00→20:11)
--- NOTE | 2018-12-17 09:47 | PRG ---
DATE OF SERVICE: 12/17/2018 SUBJECTIVE: Mr. Dominguez had no chest pain since admission. OBJECTIVE: VITAL SIGNS: Heart rate 60, blood pressure 126/53, and respiratory rate in the teens. LUNGS: Clear. HEART: Regular rhythm. S1 and S2 are normal. ABDOMEN: Soft and nontender. EXTREMITIES: He has complained that he cannot raise his arms over his head, but when asked to do so, he raises his arms over his head. NEUROLOGIC: He stutters, which is not new. LABORATORY DATA: He has no new lab. IMPRESSION: 1. Unstable angina, awaiting coronary artery bypass grafting. 2. History of multiple cerebrovascular accidents. 3. Arm complaints with no clear neurological deficit. 4. End-stage renal disease, on peritoneal dialysis. 5. History of hypertension. 6. Past history of atrial fibrillation. PLAN: Overall, he appears to be stable. He has no facial asymmetry, no strength asymmetry, and actually mentioned this yesterday and then held his arm up over his head. He was complaining about his right arm yesterday and then left arm today, but he has symmetrical motion, so I am really not sure what to make of all this. We will continue to watch him closely. Job ID: [id number]
--- NOTE | 2018-12-17 10:38 | CT ---
PET CT WITHOUT CONTRAST: HISTORY: Follow-up exam. CVA. COMPARISON: 09/30/2018 FINDINGS: No parenchymal hemorrhage. No extraaxial hematoma. No midline shift. Basilar cisterns are patent. Cortical hameed white matter differentiation is preserved. The ventricles and sulci are patent and symmetric. Brain volume is less than expected for the patient's age. The calvarium is intact. Adequate aeration of the sinuses and mastoid air cells. Carotid atheroscle rosis is noted. IMPRESSION: 1. No acute intracranial process. 2. Brain volume is less than expected for the patient's age. POS: [facility]
[2018-12-17] MEDS ORDERED: Enoxaparin Sodium 60 MG/0.6 ML SYRINGE SC SCH (14:00)
[2018-12-17] MEDS: Morphine 4 MG/ML VIAL SLOW IVP PRN (17:46)
--- NOTE | 2018-12-17 19:41 | PRG ---
DATE OF SERVICE: 12/17/2018 SUBJECTIVE: The patient was seen and examined with no new complaint, noted with the following vital signs. PHYSICAL EXAMINATION: VITAL SIGNS: Afebrile, temperature 97.8, pulse 63, respiratory rate of 16, O2 saturation 100%, and blood pressure 135/63. HEENT: Unremarkable. CARDIOVASCULAR SYSTEM: First and second heart sounds were heard. RESPIRATORY SYSTEM: Clear to auscultation. DIGESTIVE SYSTEM: Revealed a benign abdomen with positive bowel sounds. EXTREMITIES: No peripheral edema. SKIN: No new gross rash. EXTREMITIES: No peripheral edema. IMPRESSION: 1. End-stage renal disease, on peritoneal dialysis. We will transition over to hemodialysis. 2. Known multivessel coronary artery disease. 3. Hypertension. PLAN: 1. The patient is to now start hemodialysis with ultrafiltration as tolerated by hemodynamics. Peritoneal dialysis of this patient is not ultrafiltrate very well and also the patient is going to be undergoing coronary artery bypass surgery resuscitation. Therefore, the patient now is to be on hemodialysis pre and post coronary artery bypass surgery. 2. Further management to be dependent on the clinical course. Job ID: [id number]
[2018-12-17] MEDS: Atorvastatin Calcium 10 MG TAB PO SCH (20:12)
--- NOTE | 2018-12-17 22:13 | PDOC.PN ---
- Subjective Encounter Start Date: 12/17/18 Encounter Start Time: 12:40 Right shoulder is improved. Today he has the same symptoms in the left shoulder. Has trouble lifting it. Complains of the left elbow edema that he reports is intermittent and related to gout. - Objective Resuscitation Status - Order Detail: 12/14/18 22:50 Resuscitation Status Routine Resuscitation Status: FULL: Full Resuscitation Vital Signs & Weight: Vital Signs (12 hours) Temp Pulse Resp BP BP Pulse Ox 12/17/18 20:14 103/51 L 12/17/18 20:13 60 103/51 L 12/17/18 16:00 100 12/17/18 15:30 97.8 F 63 16 135/63 100 Weight Weight 221 lb 5.506 oz Most Recent Monitor Data Heart Rate from ECG 60 NIBP 157/56 NIBP BP-Mean 105 Respiration from ECG 16 SpO2 100 I&O: 12/16/18 12/17/18 12/18/18 06:59 06:59 06:59 Intake Total 1788 915 240 Output Total 500 975 Balance 1288 -60 240 Result Diagrams: 12/15/18 04:28 12/15/18 04:28 Phys Exam - Physical Examination Constitutional: NAD Respiratory: no wheezing, no rales, no rhonchi Cardiovascular: RRR II/ M LLSB Gastrointestinal: soft, non-tender, no distention, positive bowel sounds Slight soft tissue edema of the left elbow. Psychiatric: normal affect, A&O x 3 Dx/Plan (1) Unstable angina Status: Acute (2) ESRD (end stage renal disease) on dialysis Code(s): N18.6 - END STAGE RENAL DISEASE; Z99.2 - DEPENDENCE ON RENAL DIALYSIS Status: Acute (3) Dyslipidemia Code(s): E78.5 - HYPERLIPIDEMIA, UNSPECIFIED Status: Chronic (4) HTN (hypertension) Code(s): I10 - ESSENTIAL (PRIMARY) HYPERTENSION Status: Chronic (5) Atrial fibrillation Code(s): I48.91 - UNSPECIFIED ATRIAL FIBRILLATION Status: Chronic (6) Elevated troponin Code(s): R74.8 - ABNORMAL LEVELS OF OTHER SERUM ENZYMES Status: Acute - Plan * Plan for CABG on Thursday. * Should symptoms are unusual. Almost identical symptoms in both UE's on subsequent days. Doubt true neuro events. * CT head was negative. Started on Lovenox bridge for the Eliquis. * Will add at little more pain management for the gout symptoms per patient request. * Starting hemodialysis.
[2018-12-18] MEDS: Morphine 4 MG/ML VIAL SLOW IVP PRN ×3 (00:56→20:12)
[2018-12-18] MEDS: oxyCODONE 5 MG TAB PO PRN ×3 (06:02→17:05)
[2018-12-18] MEDS: ALPRAZolam 0.5 MG TAB PO SCH ×2 (06:04→20:12)
[2018-12-18] MEDS: Metoprolol Tartrate 100 MG TAB PO SCH ×2 (08:14→20:10)
[2018-12-18] MEDS: Sevelamer Carbonate 800 MG TAB PO SCH ×2 (08:15→17:05)
[2018-12-18] MEDS: Bumetanide 1 MG TAB PO SCH ×2 (08:15→20:11)
[2018-12-18] MEDS: Cinacalcet HCl 30 MG TAB PO SCH (08:15)
[2018-12-18] MEDS: Aspirin 81 mg Enteric Coated Tablet PO SCH (08:15)
[2018-12-18] MEDS ORDERED: Enoxaparin Sodium 100 MG/ML SYRINGE SC SCH (09:00)
[2018-12-18] MEDS: cloNIDine 0.3 MG TAB PO SCH ×2 (10:21→20:11)
--- NOTE | 2018-12-18 14:05 | PDOC.PN ---
- Subjective Encounter Start Date: 12/18/18 Encounter Start Time: 10:50 Continues to report some difficulty moving his right shoulder. Left functioning normally. Reports chronic left UE weakness since prior CVA, but not this severe. Still complains of some pain in the left elbow and foot that he relates to gout. - Objective Resuscitation Status - Order Detail: 12/14/18 22:50 Resuscitation Status Routine Resuscitation Status: FULL: Full Resuscitation Vital Signs & Weight: Vital Signs (12 hours) Temp Pulse Resp BP Pulse Ox 12/18/18 13:52 98.6 F 60 16 105/48 L 98 12/18/18 08:15 62 12/18/18 07:25 98 F 62 16 116/53 L 97 12/18/18 03:15 99.5 F 60 18 106/47 L 94 L Weight Weight 221 lb 5.506 oz Most Recent Monitor Data Heart Rate from ECG 60 NIBP 157/56 NIBP BP-Mean 105 Respiration from ECG 16 SpO2 100 I&O: 12/17/18 12/18/18 12/19/18 06:59 06:59 06:59 Intake Total 915 240 Output Total 975 Balance -60 240 Result Diagrams: 12/15/18 04:28 12/15/18 04:28 Phys Exam - Physical Examination Constitutional: NAD Respiratory: no wheezing, no rales, no rhonchi, clear to auscultation bilateral Cardiovascular: RRR, no significant murmur Gastrointestinal: soft, non-tender, no distention, positive bowel sounds Slight edema of the left elbow area, but difficult to assess due to the large, dilated AV shunt. Can lift LUE at shoulder, but not above 90 degrees and cannot hold it up. Slight TTP in the right deltoid. Psychiatric: normal affect, A&O x 3 Dx/Plan (1) Unstable angina Status: Acute (2) ESRD (end stage renal disease) on dialysis Code(s): N18.6 - END STAGE RENAL DISEASE; Z99.2 - DEPENDENCE ON RENAL DIALYSIS Status: Acute (3) Dyslipidemia Code(s): E78.5 - HYPERLIPIDEMIA, UNSPECIFIED Status: Chronic (4) HTN (hypertension) Code(s): I10 - ESSENTIAL (PRIMARY) HYPERTENSION Status: Chronic (5) Atrial fibrillation Code(s): I48.91 - UNSPECIFIED ATRIAL FIBRILLATION Status: Chronic (6) Elevated troponin Code(s): R74.8 - ABNORMAL LEVELS OF OTHER SERUM ENZYMES Status: Acute (7) Left arm weakness Code(s): R29.898 - OTH SYMPTOMS AND SIGNS INVOLVING THE MUSCULOSKELETAL SYSTEM Status: Acute - Plan * Not sure what to make of his arm symptoms. Initially had this on the right. The next day that completely resolved and was present on the left side. Will check ESR and CRP to look for possibly Polymyalgia Rheumatica. Doubt central neuro issue. Negative CT head. Cannot get MRI due to PPM. * Continue pain meds for gout. * Lovenox bridge while off Eliquis. * CABG on Thursday.
--- NOTE | 2018-12-18 16:55 | PRG ---
DATE OF SERVICE: 12/18/2018 SERVICE: Pulmonary Medicine. INTERVAL HISTORY: The patient is doing fine from respiratory standpoint. He denies any current shortness of breath or chest discomfort. He was having a hard time lifting his right shoulder yesterday, that is completely resolved, but now he is having a hard time lifting his left shoulder. Otherwise, he has no specific complaints. He is looking forward to his procedure on Thursday. PHYSICAL EXAMINATION: VITAL SIGNS: Afebrile with a T-max of 99.5. Pulse 60, blood pressure 105/48, respirations 16, and saturation 98% on room air. GENERAL: The patient is awake and alert, in no apparent distress. LUNGS: Decent air entry. Dependent crackles are minimal. There is no prolonged expiratory phase or wheezing. HEART: Normal rate. Regular. ABDOMEN: Soft, nontender, nondistended. Bowel sounds are positive. MUSCULOSKELETAL: No cyanosis or clubbing. There is trace pitting in the bilateral lower extremities. Left upper extremity AV fistula is present. IMAGING DATA: Echocardiogram demonstrates normal ejection fraction, 3/3 diastolic dysfunction. Elevated right ventricular systolic pressures are also noted. Moderately dilated left atrium is noted. ASSESSMENT: 1. Unstable angina. 2. Coronary artery disease. 3. End-stage renal disease. 4. Chronic diastolic heart failure. 5. History of paroxysmal atrial fibrillation. 6. History of CVAs. DISCUSSION AND PLAN: The patient is doing fine from a respiratory standpoint. At this point, we are awaiting a coronary artery bypass graft, which is scheduled for Thursday morning. Pulmonary will continue to follow, intermittently while the patient remains inhouse. Please call if the patient has a significant change in condition before Thursday. Job ID: [id number] MTDD
--- NOTE | 2018-12-18 19:55 | PRG ---
DATE OF SERVICE: 12/18/2018 SUBJECTIVE: The patient is seen and examined with no new complaints, noted with the following vital signs. OBJECTIVE: VITAL SIGNS: Afebrile. Temperature 99.5, pulse 60, blood pressure 104/48, respiratory rate of 16, O2 saturation of 98%. HEENT: Unremarkable. Moist oral mucosa. NECK: Supple. No conjunctival injection or icterus. CARDIOVASCULAR: First and second heart sounds were heard. RESPIRATORY: Clear to auscultation. DIGESTIVE: Revealed a benign abdomen with positive bowel sounds. EXTREMITIES: No peripheral edema. SKIN: No new gross rash. LYMPHATICS: No peripheral lymphadenopathy. IMPRESSION: 1. End-stage renal disease, on hemodialysis. 2. Multivessel coronary artery disease, awaiting bypass surgery. 3. Hypertension. PLAN: 1. The patient seems to be tolerating hemodialysis, and peritoneal dialysis is on suspension. The patient to be on this modality of treatment prior to coronary artery bypass surgery and postop, we will continue with this modality of treatment. 2. Further management to be dependent on the clinical course. Job ID: [id number]
[2018-12-18] MEDS: Atorvastatin Calcium 10 MG TAB PO SCH (20:11)
[2018-12-19] MEDS: oxyCODONE 5 MG TAB PO PRN ×3 (01:16→10:31)
[2018-12-19] MEDS: Morphine 4 MG/ML VIAL SLOW IVP PRN ×4 (03:21→20:18)
[2018-12-19 06:10] LABS: #Basophils 0.1 thou/uL (0.0-0.2); #Eosinphils 0.3 thou/uL (0.0-0.7); #Lymphocytes 0.8 thou/uL (1.20-3.40); #Monocytes 0.8 thou/uL (0.11-0.59); #Neutrophils 3.9 thou/uL (1.40-6.50); %Basophils 0.9 % (0.0-1.0); %Eosinophils 4.5 % (0.0-10.0); %Lymphocytes 14.6 % (21.0-51.0); %Monocytes 12.9 % (0.0-10.0); Hemoglobin 10.4 g/dL (14.0-18.0); Mean Corpuscular Hemoglobin 26.1 pg (27.0-31.0); Mean Corpuscular Volume 84.3 fL (78.0-98.0); Mean Platelet Volume 9.2 fL (7.4-10.4); Platelet Count 140 thou/uL (130-400); Red Blood Cell (RBC) Count 3.97 mill/uL (4.70-6.10); White Blood Cell (WBC) Count 5.8 thou/uL (4.8-10.8)
[2018-12-19 06:11] LABS: INR-International Normal Ratio 1.1; PTT 41.9 SEC (22.9-36.1)
[2018-12-19 06:27] LABS: Anion Gap 17 mmol/L (10-20); BUN (Urea Nitrogen) 61 mg/dL (8.9-20.6); Calc. Creatinine Clearance 18 mL/min (70-130); Calcium 9.1 mg/dL (7.8-10.44); Carbon Dioxide 25 mmol/L (22-29); Chloride 95 mmol/L (98-107); Estimated GFR-MDRD 8; Glucose 81 mg/dL (70-105); Potassium 5.4 mmol/L (3.5-5.1); Sodium 132 mmol/L (136-145)
[2018-12-19] MEDS: Sevelamer Carbonate 800 MG TAB PO SCH ×2 (07:32→16:11)
[2018-12-19] MEDS: Cinacalcet HCl 30 MG TAB PO SCH (08:37)
[2018-12-19] MEDS: Aspirin 81 mg Enteric Coated Tablet PO SCH (08:37)
[2018-12-19] MEDS: Bumetanide 1 MG TAB PO SCH ×2 (08:38→20:16)
[2018-12-19] MEDS: ALPRAZolam 0.5 MG TAB PO SCH ×2 (08:40→20:17)
[2018-12-19] MEDS: Metoprolol Tartrate 100 MG TAB PO SCH ×2 (09:09→20:17)
[2018-12-19] MEDS: cloNIDine 0.3 MG TAB PO SCH (10:15)
--- NOTE | 2018-12-19 16:21 | PDOC.PN ---
- Subjective Encounter Start Date: 12/19/18 Encounter Start Time: 15:00 Doesn't feel great, but typical of his usual immediately after dialysis. Right UE is baseline. Left shoulder still a little week. - Objective Resuscitation Status - Order Detail: 12/14/18 22:50 Resuscitation Status Routine Resuscitation Status: FULL: Full Resuscitation Vital Signs & Weight: Vital Signs (12 hours) Temp Pulse Resp BP Pulse Ox 12/19/18 15:54 97.9 F 63 17 116/51 L 96 12/19/18 08:39 60 12/19/18 07:28 98.3 F 64 18 100/40 L 94 L Weight Weight 235 lb 9 oz Most Recent Monitor Data Heart Rate from ECG 60 NIBP 157/56 NIBP BP-Mean 105 Respiration from ECG 16 SpO2 100 I&O: 12/18/18 12/19/18 12/20/18 06:59 06:59 06:59 Intake Total 240 2100 Balance 240 2100 Result Diagrams: 12/19/18 05:52 12/19/18 05:52 Phys Exam - Physical Examination Constitutional: NAD Respiratory: no wheezing, no rales, no rhonchi, clear to auscultation bilateral Cardiovascular: RRR II/ Gastrointestinal: soft, non-tender, no distention, positive bowel sounds Musculoskeletal: no edema Neurological: non-focal Psychiatric: normal affect, A&O x 3 Skin: normal turgor Dx/Plan (1) Unstable angina Status: Acute (2) ESRD (end stage renal disease) on dialysis Code(s): N18.6 - END STAGE RENAL DISEASE; Z99.2 - DEPENDENCE ON RENAL DIALYSIS Status: Acute (3) Dyslipidemia Code(s): E78.5 - HYPERLIPIDEMIA, UNSPECIFIED Status: Chronic (4) HTN (hypertension) Code(s): I10 - ESSENTIAL (PRIMARY) HYPERTENSION Status: Chronic (5) Atrial fibrillation Code(s): I48.91 - UNSPECIFIED ATRIAL FIBRILLATION Status: Chronic (6) Elevated troponin Code(s): R74.8 - ABNORMAL LEVELS OF OTHER SERUM ENZYMES Status: Acute (7) Left arm weakness Code(s): R29.898 - OTH SYMPTOMS AND SIGNS INVOLVING THE MUSCULOSKELETAL SYSTEM Status: Acute - Plan * Plan is for CABG tomorrow. * May have Polymyalgia Rheumatica, but will not initiate steroids with pending surgery. May be indicated afterwards if symptoms persist. Other reasons his CRP might be elevated, but it is significantly elevated. * Continue pain meds for gout symptoms. * Continue hemodialysis per nephrology.
[2018-12-19] MEDS: Atorvastatin Calcium 10 MG TAB PO SCH (20:16)
[2018-12-19] MEDS: cloNIDine 0.1 MG TAB PO SCH (20:18)
--- NOTE | 2018-12-19 20:54 | PRG ---
DATE OF SERVICE: 12/19/2018 SUBJECTIVE: The patient is seen and examined with no new complaints, noted with the following vital signs. OBJECTIVE: VITAL SIGNS: Afebrile. Temperature 98.3, pulse 64, respiratory rate of 18, O2 saturation of 94%, and blood pressure . HEENT: Unremarkable. CARDIOVASCULAR SYSTEM: First and second heart sounds were heard. RESPIRATORY: Clear to auscultation. DIGESTIVE: Revealed a benign abdomen with positive bowel sounds. EXTREMITIES: No peripheral edema. SKIN: No new gross rash. LYMPHATICS: No peripheral lymphadenopathy. IMPRESSION: 1. End-stage renal disease, on hemodialysis. 2. Multivessel coronary artery disease, cleared for bypass surgery on Thursday. 3. Hypertension cerebrovascular accident in the past. PLAN: 1. The patient to be dialyzed prior to planning coronary artery bypass surgery tomorrow and then afterwards the patient to remain on the Thursday, , and Thursday hemodialysis schedule. From there on, peritoneal dialysis treatment modalities will be placed on hold. 2. Further management to be dependent on the clinical course. Job ID: [id number]
[2018-12-20] MEDS: Morphine 4 MG/ML VIAL SLOW IVP PRN (00:50)
[2018-12-20] MEDS: oxyCODONE 5 MG TAB PO PRN (03:47)
[2018-12-20] MEDS: Metoprolol Tartrate 100 MG TAB PO SCH (05:41)
[2018-12-20] MEDS: Sevelamer Carbonate 800 MG TAB PO SCH (05:48)
[2018-12-20] MEDS ORDERED: Albumin 5% 0 ML ONE (06:30)
[2018-12-20] MEDS ORDERED: Heparin 10,000 UNITS/1 ML VIAL 30,000 UNITS in Sodium Chloride 0.9% 1,000 ML FS SCH (06:45)
[2018-12-20] MEDS ORDERED: Fentanyl 250 MCG/5 ML VIAL ONE (06:55)
[2018-12-20] MEDS ORDERED: Midazolam HCl 5 mg/5 ml Vial ONE (06:55)
[2018-12-20] MEDS ORDERED: Norepinephrine 8 MG/0.9% NS 250 ML ONE (06:56)
[2018-12-20] MEDS ORDERED: Dexmedetomidine 200 MCG/2 ML VIAL ONE (06:56)
[2018-12-20] MEDS ORDERED: Vecuronium 10 MG VIAL ONE ×2 (06:56→15:06)
[2018-12-20] MEDS ORDERED: Bupivacaine HCl 0.5%/Epinephrine 1:200,000/PF 30 ml Vial ONE (06:58)
[2018-12-20] MEDS ORDERED: Dexamethasone 4 mg/ml Vial ONE (06:58)
[2018-12-20] MEDS ORDERED: VANCOMYCIN 2 GM IVPB SCH (07:00)
[2018-12-20] MEDS ORDERED: SODIUM CHLORIDE 0.9% IVPB SCH (07:00)
[2018-12-20] MEDS ORDERED: Midazolam HCl 2 mg/2 ml Vial ONE (07:11)
[2018-12-20] MEDS ORDERED: Heparin 30,000 units/30 ml VIAL ONE (15:06)
[2018-12-20] MEDS ORDERED: Mannitol 12.5 GM/50 ML ONE (15:06)
[2018-12-20] MEDS ORDERED: Papaverine 60 MG/2 ML VIAL ONE (15:06)
[2018-12-20] MEDS ORDERED: Glycopyrrolate 0.2 MG/ML 5 ML SYRINGE ONE (15:06)
[2018-12-20] MEDS ORDERED: Aminocaproic Acid 5 GM/20 ML VIAL ONE (15:06)
[2018-12-20] MEDS ORDERED: Magnesium 5 GM/10 ML VIAL ONE (15:06)
[2018-12-20] MEDS ORDERED: Potassium Chloride 60 MEQ/30 ML VIAL ONE (15:06)
[2018-12-20] MEDS ORDERED: Calcium Chloride 1 GM/10 ML Abboject SYRINGE ONE (15:06)
[2018-12-20] MEDS ORDERED: Thrombin 5000 UNITS/5 ML VIAL ONE (15:06)
[2018-12-20] MEDS ORDERED: Lidocaine 2% PF 100 mg/5 ml Syringe ONE (15:06)
[2018-12-20] MEDS ORDERED: PROPOFOL 200 MG/20 ML VIAL ONE (15:06)
[2018-12-20] MEDS ORDERED: Heparin 5,000 UNITS/ML VIAL ONE (15:06)
[2018-12-20] MEDS ORDERED: Protamine Sulfate 250 MG/25 ML VIAL ONE (15:06)
[2018-12-20] MEDS ORDERED: Sodium Bicarb 50 MEQ/50 ML VIAL ONE ×2 (15:06→16:08)
[2018-12-20] MEDS ORDERED: Cardioplegic Soln 1,000 ML BAG ONE (15:06)
[2018-12-20] MEDS ORDERED: Fentanyl 100 MCG/2 ML VIAL SLOW IVP PRN (15:38)
[2018-12-20] MEDS ORDERED: Post-Op Insulin Drip Protocol IVPB ONE (15:38)
[2018-12-20] MEDS ORDERED: Bisacodyl 10 MG SUPP PR PRN (15:38)
[2018-12-20] MEDS ORDERED: HYDROcodone/Acetaminophen 5/325 mg Tablet PO PRN (15:38)
[2018-12-20] MEDS ORDERED: Norepinephrine 8 MG/0.9% NS 250 ML IVPB PRN (15:38)
[2018-12-20] MEDS ORDERED: Promethazine HCl 25 MG/ML VIAL IM PRN (15:38)
[2018-12-20] MEDS ORDERED: hydrALAZINE 20 MG/ML VIAL SLOW IVP PRN (15:38)
[2018-12-20] MEDS ORDERED: Acetaminophen 325 MG TAB PO PRN (15:38)
[2018-12-20] MEDS ORDERED: Nitroglycerin 50 MG/250 ML BOT 250 ML IVPB PRN (15:38)
[2018-12-20] MEDS ORDERED: Hetastarch 6% 500 ML 500 ML IVPB PRN (15:38)
[2018-12-20] MEDS ORDERED: Potassium Chloride 20 MEQ/100 ML PREMIX BAG IVPB PRN (15:38)
[2018-12-20] MEDS ORDERED: Bisacodyl 5 MG TAB PO PRN (15:38)
[2018-12-20] MEDS ORDERED: Mag-Al 1200 mg/1200 mg/30 ML UDCUP PO PRN (15:38)
[2018-12-20] MEDS ORDERED: Guaifenesin DM 100-10/5 ML UDCUP PO PRN (15:38)
[2018-12-20 15:50] LABS: #Eosinphils 0.1 thou/uL (0.0-0.7); #Lymphocytes 0.5 thou/uL (1.20-3.40); #Monocytes 0.9 thou/uL (0.11-0.59); #Neutrophils 8.2 thou/uL (1.40-6.50); %Basophils 0.2 % (0.0-1.0); %Eosinophils 1.1 % (0.0-10.0); %Lymphocytes 5.5 % (21.0-51.0); %Monocytes 8.8 % (0.0-10.0); %Neutrophils 84.3 % (42.0-75.0); Hemoglobin 9.2 g/dL (14.0-18.0); Mean Corpuscular HGB CONC 32.2 g/dL (32.0-36.0); Mean Corpuscular Hemoglobin 27.2 pg (27.0-31.0); Mean Corpuscular Volume 84.4 fL (78.0-98.0); Mean Platelet Volume 8.5 fL (7.4-10.4); Platelet Count 150 thou/uL (130-400); RBC Distribution Width 16.4 % (11.5-14.5); Red Blood Cell (RBC) Count 3.38 mill/uL (4.70-6.10); White Blood Cell (WBC) Count 9.7 thou/uL (4.8-10.8)
--- NOTE | 2018-12-20 15:53 | RAD ---
PORTABLE CHEST: Date: 12-20-18 Provided Clinical History: Post open heart. FINDINGS: Comparison 12-14-18. Median sternotomy changes are now demonstrated. Endotracheal tube is seen, the tip of which overlies the expected location of the thoracic inlet. Right IJ central line is noted, the tip of which overlie s the expected location of the cavoatrial junction. Bilateral pleural catheters are seen. Mediastinal drains noted. Right subclavian cardiac pacing device is again noted. Cardiomegaly with obscuration o f the left hemidiaphragm. Left basilar pleural and/or parenchymal opacity cannot be excluded. The sup ine nature of the examination limits sensitivity of detection of pneumothorax, without evidence for s uch. IMPRESSION: 1. Lines and tubes as above. 2. Obscuration of the left hemidiaphragm. POS: [facility]
[2018-12-20 15:55] LABS: INR-International Normal Ratio 1.4; PTT 38.9 SEC (22.9-36.1); Prothrombin Time 17.7 SEC (12.0-14.7)
[2018-12-20 15:58] LABS: Actual Bicarbonate (HCO3a) 20.1 mEq/L (22-28); Base Excess (BEa) -5.8 mEq/L (-2.0 to +3.0); CO2 Tension 41.7 mmHg (35.0-45.0); Calcium, Ionized 1.08 mmol/L (1.12-1.30); Carboxyhemoglobin (COHb) 1.1 gm% (0.0-3.0); Hemoglobin (Hb) 9.6 g/dL (14.0-18.0); O2 Tension (PaO2) 142.6 mmHg (80.0-100.0); Potassium - ABG Lab 5.82 mmol/L (3.70-5.30)
[2018-12-20 15:59] LABS: Puncture Site ALINE
[2018-12-20 16:00] LABS: ALV-art Gradient 161.775 (0-20)
[2018-12-20] MEDS ORDERED: HUMULIN R 100 UNITS in Sodium Chloride 0.9% 100 ML IVPB SCH (16:03)
[2018-12-20] MEDS ORDERED: Insulin Regular 300 UNITS/3 ML VIAL SC PRN (16:03)
[2018-12-20] MEDS ORDERED: Dextrose 5% in Water 1,000 ML IV PRN (16:03)
[2018-12-20] MEDS ORDERED: Dextrose 50% Abboject 50 ML SYRINGE SLOW IVP PRN (16:03)
[2018-12-20 16:15] LABS: Anion Gap 16 mmol/L (10-20); BUN (Urea Nitrogen) 37 mg/dL (8.9-20.6); Calc. Creatinine Clearance 27 mL/min (70-130); Calcium 7.3 mg/dL (7.8-10.44); Carbon Dioxide 18 mmol/L (22-29); Chloride 107 mmol/L (98-107); Estimated GFR-MDRD 13; Glucose 133 mg/dL (70-105); Potassium 5.6 mmol/L (3.5-5.1); Sodium 135 mmol/L (136-145)
--- NOTE | 2018-12-20 16:20 | PDOC.PN ---
- Subjective Encounter Start Date: 12/20/18 Encounter Start Time: 16:18 Subjective: intubated, on vent - Objective Resuscitation Status - Order Detail: 12/14/18 22:50 Resuscitation Status Routine Resuscitation Status: FULL: Full Resuscitation Vital Signs & Weight: Vital Signs (12 hours) Pulse BP 12/20/18 15:32 63 103/54 L Weight Weight 232 lb 1.6 oz Most Recent Monitor Data Heart Rate from ECG 60 NIBP 157/56 NIBP BP-Mean 105 Respiration from ECG 16 SpO2 100 I&O: 12/19/18 12/20/18 12/21/18 06:59 06:59 06:59 Intake Total 2100 Balance 2100 Result Diagrams: 12/20/18 15:24 12/20/18 15:24 Additional Labs: Accuchecks 12/20/18 12/20/18 12/20/18 13:49 13:21 12:52 POC Glucose 121 H 130 H 140 H 12/20/18 12/20/18 12/20/18 12:23 11:42 10:59 POC Glucose 156 H 126 H 117 H 12/20/18 08:31 POC Glucose 92 Radiology Reviewed by me: Yes (CXR- ET tube-caina, multiple chest tubes, cardiomegaly) Phys Exam - Physical Examination Neck: no JVD some scattered rhonchi, OW clear Cardiovascular: RRR, no significant murmur Gastrointestinal: soft, positive bowel sounds mild anasarca Dx/Plan (1) CAD (coronary artery disease) Code(s): I25.10 - ATHSCL HEART DISEASE OF [place] CORONARY ARTERY W/O ANG PCTRS Status: Acute Qualifiers: Coronary Disease-Associated Artery/Lesion type: [place] artery [place] vs. transplanted heart: [place] heart Associated angina: with unstable angina Qualified Code(s): I25.110 - Atherosclerotic heart disease of [place] coronary artery with unstable angina pectoris (2) ESRD (end stage renal disease) on dialysis Code(s): N18.6 - END STAGE RENAL DISEASE; Z99.2 - DEPENDENCE ON RENAL DIALYSIS Status: Chronic (3) Unstable angina Status: Acute (4) Chronic diastolic heart failure Code(s): I50.32 - CHRONIC DIASTOLIC (CONGESTIVE) HEART FAILURE Status: Chronic (5) Dyslipidemia Code(s): E78.5 - HYPERLIPIDEMIA, UNSPECIFIED Status: Chronic (6) HTN (hypertension) Code(s): I10 - ESSENTIAL (PRIMARY) HYPERTENSION Status: Chronic Qualifiers: Hypertension type: essential hypertension Qualified Code(s): I10 - Essential (primary) hypertension (7) Anemia of renal disease Code(s): D63.1 - ANEMIA IN CHRONIC KIDNEY DISEASE Status: Chronic (8) Moderate mitral regurgitation Code(s): I34.0 - NONRHEUMATIC MITRAL (VALVE) INSUFFICIENCY Status: Chronic - Plan post CABG today -: PRBC transfusion in progress -: on levophed -: on vent * .
[2018-12-20] MEDS: Ketorolac Tromethamine 30 MG/ML VIAL IVP SCH ×2 (16:28→21:19)
[2018-12-20] MEDS: Sodium Chloride 0.9% 1,000 ML IV SCH (16:28)
[2018-12-20] MEDS: Fentanyl 100 MCG/2 ML VIAL SLOW IVP PRN ×2 (16:49→22:55)
--- NOTE | 2018-12-20 17:35 | PDOC.CTH ---
Cardiology Progress Note - Subjective He had his surgery earlier today. Currently he remains intubated and sedated. - Objective Vital Signs Pulse BP Pulse Ox 12/20/18 15:38 100 12/20/18 15:32 63 103/54 L Weight 232 lb 1.6 oz 12/19/18 12/20/18 12/21/18 06:59 06:59 06:59 Intake Total 2100 Balance 2100 - Physical Examination General/Neuro: other: (Sedated, intubated) Neck: no JVD present Lungs: other: (Coarse anterior) Heart: RRR Abdomen: NT/ND Extremities: + edema B (1+) - Telemetry Telemetry Rhythm: Uderlying afib, V paced. - Labs Result Diagrams: 12/20/18 15:24 12/20/18 15:24 Troponin/CKMB CK-MB (CK-2) 1.3 ng/mL (0-6.6) 12/14/18 17:42 Troponin I 0.038 ng/mL (< 0.028) H 12/14/18 23:50 - Assessment/Plan 1. Unstable angina 2. Severe multivessel CAD. 3. ESRD on PD 4. HTN 5. Left arm weakness. 6. Hx of Afib. 7. S/P CABG PLAN: - Continue supportive care for now. - Wean pressors as tolerated. - Will follow.
--- NOTE | 2018-12-20 19:09 | PRG ---
DATE OF SERVICE: 12/20/2018 SUBJECTIVE: The patient is seen and examined, status post bypass surgery noted with the following vital signs. OBJECTIVE: VITAL SIGNS: Pulse of 63, blood pressure 114/73, and O2 saturation 100%. HEENT: Remarkable for endotracheal tube in place. CARDIOVASCULAR SYSTEM: First and second heart sounds were heard. RESPIRATORY SYSTEM: Revealed ventilator sounds. DIGESTIVE SYSTEM: Revealed a benign abdomen. Positive bowel sounds. EXTREMITIES: No peripheral edema. SKIN: No new gross rash. LYMPHATICS: No peripheral lymphadenopathy. IMPRESSION: 1. End-stage renal disease, on hemodialysis. 2. Multivessel coronary artery disease, status post bypass surgery. 3. Hypertension. PLAN: 1. The patient is now on hemodialysis, peritoneal dialysis is on hold. There is no emergent indication at this point for renal replacement therapy (hemodialysis). Therefore, we will continue with current schedule of Thursday, , Thursday. The patient to be dialyzed tomorrow. 2. Further management will be dependent on the clinical course. Condition of patient at this time of dictation is guarded. Job ID: [id number]
[2018-12-20] MEDS: cloNIDine 0.1 MG TAB PO SCH (20:10)
[2018-12-20] MEDS ORDERED: Famotidine/PF 20 mg/2ml Vial SLOW IVP SCH (21:00)
[2018-12-20 21:18] LABS: Actual Bicarbonate (HCO3a) 21.7 mEq/L (22-28); Base Excess (BEa) -3.1 mEq/L (-2.0 to +3.0); Calcium, Ionized 1.08 mmol/L (1.12-1.30); Carboxyhemoglobin (COHb) 1.1 gm% (0.0-3.0); Hemoglobin (Hb) 9.7 g/dL (14.0-18.0); O2 Tension (PaO2) 159.2 mmHg (80.0-100.0); Potassium - ABG Lab 5.85 mmol/L (3.70-5.30); pH, Arterial 7.38 (7.35-7.45)
[2018-12-20 21:40] LABS: Hemoglobin 9.8 g/dL (14.0-18.0)
--- NOTE | 2018-12-20 21:42 | OP ---
DATE OF PROCEDURE: 12/20/2018 PROCEDURES PERFORMED: Coronary artery bypass grafting x3 with left internal mammary artery to the distal LAD, reverse greater saphenous vein graft from the aorta to the anterior branch of the ramus intermedius, and reverse greater saphenous vein graft from the ramus intermedius graft to the diagonal, 32 mm Jose Manley mitral valve annuloplasty/repair, and ligation of left atrial appendage. PREOPERATIVE DIAGNOSES: Coronary artery disease and severe mitral regurgitation. POSTOPERATIVE DIAGNOSES: Coronary artery disease and severe mitral regurgitation. 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 ANESTHESIA: General endotracheal anesthesia. INDICATIONS: The patient is a 48-year-old dialysis patient with cerebrovascular disease and chronic atrial fibrillation. He has had two recent presentations with chest pain radiating into his left arm consistent with coronary ischemia. He was found at his previous hospitalization to have 3-vessel coronary disease with severely diseased right coronary system and a high-grade ostial lesion associated with calcification in his LAD as well as proximal disease in the larger branch of his ramus intermedius and diagonal. He had preserved left ventricular systolic function, but had severe mitral regurgitation without obvious structural abnormality of the valve. Going back 2 or 3 years, the patient's heart has enlarged and his mitral regurgitation has worsened. He is now taken to the operating room for coronary revascularization and mitral valve repair. The patient is deemed a marginal candidate for mitral valve replacement as previous anticoagulation with Coumadin, had multiple episodes of subtherapeutic anticoagulation. FINDINGS: Pump time 169 minutes. Cross-clamp time 96 minutes. Good quality REJI and saphenous vein. Diffuse venous bleeding from the surgical bed preheparinization. The LAD was a diffusely diseased vessel, which was grafted. It primarily had posterior plaquing and was about 2 to 2.5 mm vessel. The diagonal was about a 2 mm good quality vessel. The ramus intermedius anterior branch was about a 2 to 2.5 mm good quality vessel. The distal right coronary was rock hard with plaque extending into the branch vessels, which were small and poor quality vessels that were not grafted. There was slight thickening of the mitral valve leaflets and some calcification at the commissures of the annulus, but otherwise was reasonably normal appearing valve. Post pump, the previously [id number] mitral regurgitation become trace to mild. Pump time was 169 minutes. Cross-clamp time 96 minutes. The pericardium was closed. NARRATIVE REPORT: After informed consent was obtained, the patient was taken to the operating room and placed in the supine position on the operating table. After the induction of general anesthesia, ultrasonographic mapping of the patient's left greater saphenous vein was undertaken and the leg was marked. The patient's right neck was then prepped and draped in sterile fashion. Ultrasound in the sterile sleeve was used to identify the carotid artery and internal jugular vein. A 22-gauge finder needle was used to confirm that location and then a large-bore needle was used to cannulate it. A guidewire was placed and then by the Seldinger technique, a triple-lumen central line was placed and secured to the skin with suture. All 3 ports easily aspirated and flushed. The line was dressed and the patient's torso groins and lower extremities were prepped and draped in sterile fashion. An medical assistant per diem harvested greater saphenous vein endoscopically using a port site just above the knee and small incisions to divide it proximally and distally at the groin in mid calf respectively. The vein was prepared for use as a graft and the port site was closed in layers, subcutaneous, and subcuticular Vicryl. Meanwhile, I performed a median sternotomy and entering the right pleural space fairly widely with that maneuver. There was extensive venous bleeding noted during the endoscopic harvest of the vein and from the cut surfaces just simply with the sternotomy. An extrapleural exposure of the left REJI was undertaken and the left mammary was harvested as a skeletonized in-situ graft. The pleura was violated apicomedially where it was not amenable to repair. The patient was heparinized. The mammary was ligated and divided distally. There was excellent flow through the mammary into which papaverine solution was instilled. The mammary bed was inspected for hemostasis. The REJI retractor was placed with a Jose retractor. The pericardium was opened and marsupialized. The aorta was palpated and was soft. The heart was extremely large. Double concentric pursestring of 2-0 Ethibond was placed in the ascending aorta just beyond the pericardial reflection and single pursestrings were placed in the right atrial appendage and in the right atrium near the junction of the atrium with the inferior cava. Aortic and dual venous cannulae were inserted and secured by their pursestrings. The plane between aorta and pulmonary artery was developed. Cardiopulmonary bypass was instituted and the patient was systemically cooled. The heart was examined. The vessels to be bypassed were identified. An aortic cross-clamp was applied and cardioplegia was administered through an aortic root needle. When arrest had been achieved, attention was turned to the ramus intermedius. The anterior branch was exposed and opened and reverse greater saphenous vein was anastomosed there end-to-side with running Prolene suture and the anastomosis was tested by flushing cold cardioplegia down the graft. The diagonal was then opened and grafted in a similar fashion with the plan to bring that graft off the ramus graft as the very large size of the heart necessitated fairly long length of vein for even the ramus a little alone the right coronary system. The right coronary was exposed at the crux and followed out distally. The right coronary proper was rock hard and the branch vessel became quite small and poor quality and it was opted not to attempt grafting of them. The LAD was then opened at about the junction of the middle and distal thirds where there was a soft spot anteriorly. The mammary was anastomosed to it with running 7-0 Prolene, introducing it into the pericardium through a slit made in it into the anterior left phrenic nerve. An additional 500 mL of cardioplegia was administered. The superior cava was mobilized. [place] groove was developed. The left atrium was then opened with an 11 blade scalpel and the atriotomy extended superiorly and inferiorly with scissors. The left atrium was inspected. The pulmonary veins in the orifice of atrial appendage were identified. The mitral valve leaflets were somewhat thickened, but were not particularly redundant or restricted. Structurally, the valve appeared fairly normal. 4-0 Prolene was used to oversew the orifice of the left atrial appendage in 2 layers and then nerve hook was used to stretch out the anterior leaflet of the mitral valve to allow for sizing of the annuloplasty ring. A 32 mm Jose Manley ring was selected. Horizontal mattress 2-0 Ethibond sutures were placed from commissure to commissure along the posterior annulus with a total of 9 sutures. The sutures were then passed through the annuloplasty ring, which was then seated. The sutures were secured. This ventricle and atria were irrigated and then a saline distention of the ventricle was undertaken with apparent good coaptation of the leaflets and no obvious leak. The atriotomy was then repaired from either apex with running 3-0 Prolene suture with the suture line frustrated. De-airing maneuvers were performed and the suture line was secured. With the patient in Trendelenburg and the root needle in suction, the left ventricular apex was gently elevated and then cannulated with a large-bore angio catheter. Further de-airing maneuvers were performed and then the cross-clamp was removed while the root needle was in suction. De-airing through the LV apex was completed. The angio catheter was removed and its insertion site oversewn. A partial occluding clamp was applied and an aortotomy was made in the ascending aorta with a scalpel and punch. The ramus graft was anastomosed there end-to-side with running Prolene and the partial occluding clamp removed. Bulldogs were used to isolate a segment of the ramus graft and the diagonal graft was distended and measured. Corresponding, the anatomy was made in the ramus graft and the diagonal graft was anastomosed to it end-to-side with running Prolene. The grafts were allowed to bleed to allow for de-airing before securing the suture line. The anastomoses were inspected for hemostasis as was the atriotomy suture line. The superior venous cannula was withdrawn back into the right atrium and the inferior cannula was clamped. Flows were adequate. The inferior cannula was removed and its pursestring secured. A posterior pericardial drain was brought out through a separate incision and secured with suture. Right ventricular temporary epicardial pacing wires placed. Bilateral pleural tubes were placed. The patient was adequately rewarmed. He was then from cardiopulmonary bypass with ventricular pacing and a Levophed drip. The aortic and remaining venous cannulae were removed and the pursestring secured. The inferior venous cannulation site required repair and ultimately using the pericardial pledget repair. Protamine was administered when hemostasis was adequate. An anterior mediastinal drain was placed and the pericardium was easily closed over with running Vicryl. Vancomycin paste and platelet-rich GPS were used to treat the cut surfaces of the sternum, which was then reapproximated with #7 stainless steel wires. The soft tissues were irrigated and treated with platelet-poor GPS. The fascia was closed over the wires with running #1 Vicryl. The subcutaneous tissue was reapproximated with 2-0 Vicryl and the skin was closed with 3-0 Vicryl subcuticular suture. Dermabond and dressings were applied. The patient was taken to the intensive care unit in stable condition. Job ID: [id number]
[2018-12-20 21:55] LABS: Puncture Site LINE
[2018-12-21] MEDS: HYDROcodone/Acetaminophen 5/325 mg Tablet PO PRN ×2 (00:43→06:49)
[2018-12-21] MEDS: Ketorolac Tromethamine 30 MG/ML VIAL IVP SCH ×4 (03:28→21:49)
[2018-12-21 04:06] LABS: Anion Gap 18 mmol/L (10-20); BUN (Urea Nitrogen) 45 mg/dL (8.9-20.6); Calc. Creatinine Clearance 24 mL/min (70-130); Calcium 8.1 mg/dL (7.8-10.44); Carbon Dioxide 19 mmol/L (22-29); Chloride 107 mmol/L (98-107); Estimated GFR-MDRD 11; Glucose 107 mg/dL (70-105); Potassium 5.5 mmol/L (3.5-5.1); Sodium 138 mmol/L (136-145)
[2018-12-21 04:49] LABS: #Lymphocytes 0.4 thou/uL (1.20-3.40); #Monocytes 0.7 thou/uL (0.11-0.59); #Neutrophils 6.3 thou/uL (1.40-6.50); %Basophils 0.2 % (0.0-1.0); %Eosinophils 0.3 % (0.0-10.0); %Monocytes 9.5 % (0.0-10.0); Elliptocytes SLIGHT = 2-5 cells (100X) (0-1/hpf); Hemoglobin 8.9 g/dL (14.0-18.0); Mean Corpuscular HGB CONC 31.9 g/dL (32.0-36.0); Mean Corpuscular Hemoglobin 26.8 pg (27.0-31.0); Mean Corpuscular Volume 83.9 fL (78.0-98.0); Mean Platelet Volume 9.1 fL (7.4-10.4); Platelet Count 97 thou/uL (130-400); Platelet Morphology Comment Appears Decreased; RBC Distribution Width 16.7 % (11.5-14.5); Red Blood Cell (RBC) Count 3.32 mill/uL (4.70-6.10); White Blood Cell (WBC) Count 7.4 thou/uL (4.8-10.8)
[2018-12-21] MEDS: Sodium Chloride 0.9% 1,000 ML IV SCH ×2 (05:55→18:18)
[2018-12-21 07:39] LABS: Actual Bicarbonate (HCO3a) 27.1 mEq/L (22-28); Analyzer IN Cardio OR; Base Excess (BEa) 3.7 mEq/L (-2.0 to +3.0); Calcium, Ionized 1.03 mmol/L (1.12-1.30); Carboxyhemoglobin (COHb) 0.6 gm% (0.0-3.0); Potassium - ABG Lab 4.18 mmol/L (3.70-5.30)
[2018-12-21 07:39] LABS: Analyzer IN Cardio OR; Calcium, Ionized 1.03 mmol/L (1.12-1.30); Carboxyhemoglobin (COHb) 0.5 gm% (0.0-3.0); Hemoglobin (Hb) 8.6 g/dL (14.0-18.0); O2 Tension (PaO2) 437.6 mmHg (80.0-100.0); Potassium - ABG Lab 4.28 mmol/L (3.70-5.30)
[2018-12-21 07:40] LABS: Actual Bicarbonate (HCO3a) 27.5 mEq/L (22-28); Analyzer IN Cardio OR; Base Excess (BEa) 3.6 mEq/L (-2.0 to +3.0); CO2 Tension 38.5 mmHg (35.0-45.0); Calcium, Ionized 0.98 mmol/L (1.12-1.30); Carboxyhemoglobin (COHb) 0.7 gm% (0.0-3.0); pH, Arterial 7.47 (7.35-7.45)
[2018-12-21 07:40] LABS: Actual Bicarbonate (HCO3v) 28 mEq/L (22-28); Analyzer IN Cardio OR; Base Excess 3.4 mEq/L (-2.0 to +3.0); Chloride (ABG LAB) 100 mmol/L (98-106); Hemoglobin (Hb) 7.1 g/dL (13.1-17.2); pH (venous) 7.42 (7.32-7.43)
[2018-12-21 07:40] LABS: Actual Bicarbonate (HCO3a) 26.1 mEq/L (22-28); Analyzer IN Cardio OR; Base Excess (BEa) 2.5 mEq/L (-2.0 to +3.0); CO2 Tension 35.5 mmHg (35.0-45.0); Carboxyhemoglobin (COHb) 0.8 gm% (0.0-3.0); Hemoglobin (Hb) 7.7 g/dL (14.0-18.0); Potassium - ABG Lab 4.88 mmol/L (3.70-5.30); pH, Arterial 7.48 (7.35-7.45)
[2018-12-21 07:40] LABS: Analyzer IN Cardio OR; Base Excess (BEa) 2.2 mEq/L (-2.0 to +3.0); Calcium, Ionized 1.03 mmol/L (1.12-1.30); Carboxyhemoglobin (COHb) 0.8 gm% (0.0-3.0); Hemoglobin (Hb) 8.3 g/dL (14.0-18.0); O2 Tension (PaO2) 459.9 mmHg (80.0-100.0); Potassium - ABG Lab 4.32 mmol/L (3.70-5.30); pH, Arterial 7.47 (7.35-7.45)
[2018-12-21 07:41] LABS: Actual Bicarbonate (HCO3a) 23.1 mEq/L (22-28); Analyzer IN Cardio OR; CO2 Tension 46.5 mmHg (35.0-45.0); Calcium, Ionized 0.95 mmol/L (1.12-1.30); Hemoglobin (Hb) 8.7 g/dL (14.0-18.0); Potassium - ABG Lab 4.97 mmol/L (3.70-5.30); pH, Arterial 7.31 (7.35-7.45)
[2018-12-21 07:41] LABS: Analyzer IN Cardio OR; Base Excess (BEa) -1.9 mEq/L (-2.0 to +3.0); CO2 Tension 39.4 mmHg (35.0-45.0); Calcium, Ionized 1.01 mmol/L (1.12-1.30); Carboxyhemoglobin (COHb) 0.9 gm% (0.0-3.0); Hemoglobin (Hb) 9.4 g/dL (14.0-18.0); O2 Tension (PaO2) 402.1 mmHg (80.0-100.0); pH, Arterial 7.38 (7.35-7.45)
[2018-12-21 07:41] LABS: Actual Bicarbonate (HCO3a) 23.9 mEq/L (22-28); Analyzer IN Cardio OR; Base Excess (BEa) 0.2 mEq/L (-2.0 to +3.0); CO2 Tension 34.4 mmHg (35.0-45.0); Calcium, Ionized 0.98 mmol/L (1.12-1.30); Carboxyhemoglobin (COHb) 0.5 gm% (0.0-3.0); Hemoglobin (Hb) 7.8 g/dL (14.0-18.0); O2 Tension (PaO2) 410.8 mmHg (80.0-100.0); Potassium - ABG Lab 5.33 mmol/L (3.70-5.30); pH, Arterial 7.46 (7.35-7.45)
[2018-12-21 07:42] LABS: Actual Bicarbonate (HCO3a) 21.5 mEq/L (22-28); Analyzer IN Cardio OR; Base Excess (BEa) -2.9 mEq/L (-2.0 to +3.0); CO2 Tension 35.4 mmHg (35.0-45.0); Calcium, Ionized 0.95 mmol/L (1.12-1.30); Carboxyhemoglobin (COHb) 1.2 gm% (0.0-3.0); Hemoglobin (Hb) 7.9 g/dL (14.0-18.0); O2 Tension (PaO2) 343.1 mmHg (80.0-100.0); Potassium - ABG Lab 4.99 mmol/L (3.70-5.30)
[2018-12-21 07:43] LABS: Puncture Site ALINE
[2018-12-21 07:44] LABS: O2 Tension (PaO2) 533.3 mmHg (80.0-100.0); Puncture Site ALINE
[2018-12-21 07:44] LABS: Puncture Site ALINE
[2018-12-21 07:45] LABS: O2 Tension (PaO2) 575.7 mmHg (80.0-100.0); Puncture Site ALINE
[2018-12-21 07:46] LABS: O2 Tension (PaO2) 517.7 mmHg (80.0-100.0); Puncture Site ALINE
[2018-12-21 07:47] LABS: Puncture Site ALINE
[2018-12-21 07:52] LABS: Puncture Site ALINE
[2018-12-21 07:53] LABS: Puncture Site ALINE
[2018-12-21 07:53] LABS: Puncture Site ALINE
--- NOTE | 2018-12-21 08:16 | RAD ---
CHEST 1 VIEW: HISTORY: Heart surgery. Followup. COMPARISON: 12/20/2018. FINDINGS: Cardiac silhouette is magnified and enlarged. Pulmonary vasculature remains engorged with bilateral perihilar infiltrates. Atelectasis at the left base is similar in appearance to the prior study. En dotracheal catheter no longer visible. Other lines and tubes are unchanged in position. No evidence of pneumothorax. court monitor leads overlie the chest. IMPRESSION: 1. Interval extubation 2. Otherwise, stable postoperative appearance of the chest. POS: [facility]
[2018-12-21] MEDS: Fentanyl 100 MCG/2 ML VIAL SLOW IVP PRN ×2 (08:25→11:10)
[2018-12-21] MEDS: Aspirin Chewable 81 MG TAB PO SCH (08:27)
--- NOTE | 2018-12-21 09:29 | PDOC.PN ---
- Subjective Encounter Start Date: 12/21/18 Encounter Start Time: 09:28 Subjective: incision, post op pain - Objective Resuscitation Status - Order Detail: 12/14/18 22:50 Resuscitation Status Routine Resuscitation Status: FULL: Full Resuscitation MAR Reviewed: Yes Vital Signs & Weight: Vital Signs (12 hours) Temp 12/21/18 03:00 99.1 F 12/20/18 23:00 98.9 F Weight Weight 235 lb 0.204 oz Most Recent Monitor Data Heart Rate from ECG 75 NIBP 93/64 NIBP BP-Mean 73 Respiration from ECG 12 SpO2 98 I&O: 12/20/18 12/21/18 12/22/18 06:59 06:59 06:59 Intake Total 1367.2 Output Total 1790 Balance -422.8 Result Diagrams: 12/21/18 03:40 12/21/18 03:40 Additional Labs: Accuchecks 12/21/18 12/21/18 12/20/18 08:33 03:38 23:47 POC Glucose 113 H 106 106 12/20/18 12/20/18 12/20/18 19:48 15:39 13:49 POC Glucose 110 116 H 121 H 12/20/18 12/20/18 12/20/18 13:21 12:52 12:23 POC Glucose 130 H 140 H 156 H 12/20/18 12/20/18 11:42 10:59 POC Glucose 126 H 117 H Radiology Reviewed by me: Yes (cxr- ET tube out, bilat chest tubes, post strenotomy changes) Phys Exam - Physical Examination Neck: no JVD grossly clear ant chest Cardiovascular: RRR, no significant murmur Gastrointestinal: soft, positive bowel sounds Musculoskeletal: edema present Dx/Plan (1) CAD (coronary artery disease) Code(s): I25.10 - ATHSCL HEART DISEASE OF [place] CORONARY ARTERY W/O ANG PCTRS Status: Acute Qualifiers: Coronary Disease-Associated Artery/Lesion type: [place] artery [place] vs. transplanted heart: [place] heart Associated angina: with unstable angina Qualified Code(s): I25.110 - Atherosclerotic heart disease of [place] coronary artery with unstable angina pectoris (2) ESRD (end stage renal disease) on dialysis Code(s): N18.6 - END STAGE RENAL DISEASE; Z99.2 - DEPENDENCE ON RENAL DIALYSIS Status: Chronic (3) Unstable angina Status: Acute (4) Chronic diastolic heart failure Code(s): I50.32 - CHRONIC DIASTOLIC (CONGESTIVE) HEART FAILURE Status: Chronic (5) Dyslipidemia Code(s): E78.5 - HYPERLIPIDEMIA, UNSPECIFIED Status: Chronic (6) HTN (hypertension) Code(s): I10 - ESSENTIAL (PRIMARY) HYPERTENSION Status: Chronic Qualifiers: Hypertension type: essential hypertension Qualified Code(s): I10 - Essential (primary) hypertension (7) Anemia of renal disease Code(s): D63.1 - ANEMIA IN CHRONIC KIDNEY DISEASE Status: Chronic (8) Moderate mitral regurgitation Code(s): I34.0 - NONRHEUMATIC MITRAL (VALVE) INSUFFICIENCY Status: Chronic (9) S/P CABG (coronary artery bypass graft) Code(s): Z95.1 - PRESENCE OF AORTOCORONARY BYPASS GRAFT Status: Acute - Plan HD in progress -: off vent, pressors -: magalie prn -: nutrition -: discuss with [facility], cardiology * .
--- NOTE | 2018-12-21 12:10 | PRG ---
DATE OF SERVICE: SUBJECTIVE: The patient is seen and examined, doing much better, extubated already. Noted with the following vital signs. OBJECTIVE: VITAL SIGNS: Afebrile. Blood pressure 93/64, pulse 75, respiratory rate of 12, and O2 saturation of 98%. HEENT: Unremarkable. CARDIOVASCULAR: First and second heart sounds were heard. RESPIRATORY: Clear to auscultation. DIGESTIVE: Benign abdomen. Positive bowel sounds. EXTREMITIES: No peripheral edema. SKIN: No new gross rash. LYMPHATICS: No peripheral lymphadenopathy. IMPRESSION: 1. End-stage renal disease, on hemodialysis. 2. Multivessel disease, status post bypass surgery. 3. Hypertension. PLAN: 1. The patient to be dialyzed today with ultrafiltration as tolerated by hemodynamics based on the patient's current schedule, Thursday, and Thursday. 2. Further management to be dependent on the clinical course. Job ID: [id number]
[2018-12-21] MEDS: oxyCODONE 5 MG TAB PO PRN (14:35)
--- NOTE | 2018-12-21 16:19 | EKG ---
Test Reason : Blood Pressure : / mmHG Vent. Rate : 060 BPM Atrial Rate : 060 BPM P-R Int : 000 ms QRS Dur : 222 ms QT Int : 554 ms P-R-T Axes : 000 -87 084 degrees QTc Int : 554 ms Ventricular-paced rhythm Abnormal ECG When compared with ECG of 14-DEC-2018 19:35, (Unconfirmed) No significant change was found Confirmed by MADHU LERNER ([id number]) on 12/21/2018 4:19:24 PM Referred By: TRENA Confirmed By:MADHU LERNER
--- NOTE | 2018-12-21 18:54 | PDOC.CTH ---
Cardiology Progress Note - Subjective Extubated now. Doing better. Main complaint is pain control. - Objective Vital Signs Temp Pulse Ox 12/21/18 16:00 98.2 F 12/21/18 12:00 98.6 F 12/21/18 08:45 100 12/21/18 08:00 98.2 F Weight 235 lb 0.204 oz 12/20/18 12/21/18 12/22/18 06:59 06:59 06:59 Intake Total 1367.2 1160 Output Total 1790 160 Balance -422.8 1000 - Physical Examination General/Neuro: alert & oriented x3, NAD Neck: no JVD present Lungs: unlabored respirations Heart: RRR Abdomen: NT/ND Extremities: other: (1+) - Telemetry Telemetry Rhythm: Underlying afibv HR 70 VPaced - Labs Result Diagrams: 12/21/18 03:40 12/21/18 03:40 Troponin/CKMB CK-MB (CK-2) 1.3 ng/mL (0-6.6) 12/14/18 17:42 Troponin I 0.038 ng/mL (< 0.028) H 12/14/18 23:50 - Assessment/Plan 1. Unstable angina 2. Severe multivessel CAD. 3. ESRD on PD 4. HTN 5. Left arm weakness. 6. Hx of Afib. 7. S/P CABG PLAN: - Continue supportive care for now. - HD per nephrology. - Aspirin. - Will restart statin. - Low dose BB to start tomorrow.
[2018-12-21] MEDS ORDERED: oxyCODONE ER 20 MG TAB PO PRN ×2 (19:53→20:03)
[2018-12-21] MEDS ORDERED: Mineral Oil ENEMA PR PRN (19:53)
[2018-12-21] MEDS ORDERED: Nitroglycerin 0.4 MG TAB (25 Tab Bottle) SL PRN (19:53)
[2018-12-21] MEDS ORDERED: Guaifenesin DM 100-10/5 ML UDCUP PO PRN (19:53)
[2018-12-21] MEDS ORDERED: Artificial Tears 18 DROP/0.9 ML EA EYE PRN (19:53)
[2018-12-21] MEDS ORDERED: diphenhydrAMINE 25 MG CAP PO PRN (19:53)
[2018-12-21] MEDS ORDERED: Mag-Al 1200 mg/1200 mg/30 ML UDCUP PO PRN (19:53)
[2018-12-21] MEDS ORDERED: Bisacodyl 10 MG SUPP PR PRN (19:53)
[2018-12-21] MEDS ORDERED: Docusate 100 MG CAP PO SCH (20:00)
[2018-12-21] MEDS: Atorvastatin Calcium 10 MG TAB PO SCH (20:08)
[2018-12-21] MEDS ORDERED: Sevelamer Carbonate 800 MG TAB PO SCH (20:15)
[2018-12-21] MEDS ORDERED: Atorvastatin Calcium 10 MG TAB PO SCH (21:00)
--- NOTE | 2018-12-21 21:11 | PRG ---
DATE OF SERVICE: 12/21/2018 SUBJECTIVE: Jeovany Dmoinguez only concern this morning was whether or not, he is going to get to start back on his oxycodone. Apparently, this has been automatically discontinued by the pharmacy. OBJECTIVE: GENERAL: He is in no distress. VITAL SIGNS: His vital signs have been stable. LUNGS: His lungs are clear. HEART: Regular rhythm. ABDOMEN: Soft. He still has his chest tubes in place. IMPRESSION: 1. Status post coronary artery bypass grafting, clinically stable. 2. ? chronic obstructive pulmonary disease, clinically stable. PLAN: We will continue to follow. I have written for his oxycodone, but at a little lower dose than he was getting before his surgery. Job ID: [id number]
[2018-12-22] MEDS: oxyCODONE 5 MG TAB PO PRN ×3 (01:40→16:36)
[2018-12-22] MEDS: Ketorolac Tromethamine 30 MG/ML VIAL IVP SCH ×2 (04:17→09:41)
[2018-12-22 04:55] LABS: Anion Gap 12 mmol/L (10-20); BUN (Urea Nitrogen) 35 mg/dL (8.9-20.6); Calc. Creatinine Clearance 27 mL/min (70-130); Calcium 9.1 mg/dL (7.8-10.44); Carbon Dioxide 27 mmol/L (22-29); Chloride 101 mmol/L (98-107); Estimated GFR-MDRD 12; Glucose 106 mg/dL (70-105); Potassium 4.3 mmol/L (3.5-5.1); Sodium 136 mmol/L (136-145)
[2018-12-22 05:13] LABS: Anisocytosis SLIGHT = 6-15 cells (100X) (0-5/hpf); Band 11 % (5-11); Eosinophils 8 % (0-10); Hemoglobin 7.8 g/dL (14.0-18.0); Lymphocytes 10 % (21-51); MDiff Complete? YES; Mean Corpuscular HGB CONC 31.7 g/dL (32.0-36.0); Mean Corpuscular Hemoglobin 26.8 pg (27.0-31.0); Mean Corpuscular Volume 84.5 fL (78.0-98.0); Mean Platelet Volume 8.6 fL (7.4-10.4); Monocytes 17 % (0-10); Neutrophil 54 % (42-75); Platelet Count 88 thou/uL (130-400); Platelet Morphology Comment Appears Decreased; RBC Distribution Width 16.9 % (11.5-14.5); White Blood Cell (WBC) Count 3.1 thou/uL (4.8-10.8)
[2018-12-22] MEDS: Sevelamer Carbonate 800 MG TAB PO SCH ×2 (07:44→18:02)
[2018-12-22] MEDS: Cinacalcet HCl 30 MG TAB PO SCH (07:44)
--- NOTE | 2018-12-22 07:46 | RAD ---
SINGLE VIEW OF CHEST: Date: 12/22/18 COMPARISON: 12/21/18. HISTORY: Status post CABG and mitral valve replacement. FINDINGS: Single view of the chest shows an enlarged but stable cardiomediastinal silhouette. Lines and tubes a re unchanged in position. Patient is status post sternotomy. Pacemaker is unchanged in position. No p neumothorax is visualized. IMPRESSION: Stable exam. POS: [facility]
[2018-12-22] MEDS: Docusate 100 MG CAP PO SCH ×2 (08:53→20:54)
[2018-12-22] MEDS: Metoprolol Tartrate 25 MG TAB PO SCH ×2 (08:55→20:54)
[2018-12-22] MEDS: Aspirin Chewable 81 MG TAB PO SCH (08:56)
[2018-12-22] MEDS ORDERED: Apixaban 2.5 MG TAB PO SCH (09:00)
[2018-12-22] MEDS: Ondansetron PF 4 MG/2 ML Vial IVP PRN ×2 (10:23→19:42)
--- NOTE | 2018-12-22 10:26 | PDOC.PN ---
- Subjective Encounter Start Date: 12/22/18 Encounter Start Time: 10:25 Subjective: minimal pain - Objective Resuscitation Status - Order Detail: 12/14/18 22:50 Resuscitation Status Routine Resuscitation Status: FULL: Full Resuscitation MAR Reviewed: Yes Vital Signs & Weight: Vital Signs (12 hours) Temp 12/22/18 07:00 98.4 F 12/22/18 03:00 98.1 F 12/21/18 23:00 98.7 F Weight Weight 235 lb 0.204 oz Most Recent Monitor Data Heart Rate from ECG 75 NIBP 130/80 NIBP BP-Mean 96 Respiration from ECG 11 SpO2 100 I&O: 12/21/18 12/22/18 12/23/18 06:59 06:59 06:59 Intake Total 1367.2 1360 Output Total 1790 475 55 Balance -422.8 885 -55 Result Diagrams: 12/22/18 04:10 12/22/18 04:10 Additional Labs: Accuchecks 12/20/18 10:12 POC Glucose 100 Phys Exam - Physical Examination Neck: no JVD a few scattered rales, mostly clear Cardiovascular: RRR, no significant murmur Gastrointestinal: soft, non-tender Musculoskeletal: no edema Dx/Plan (1) CAD (coronary artery disease) Code(s): I25.10 - ATHSCL HEART DISEASE OF [place] CORONARY ARTERY W/O ANG PCTRS Status: Acute Qualifiers: Coronary Disease-Associated Artery/Lesion type: [place] artery [place] vs. transplanted heart: [place] heart Associated angina: with unstable angina Qualified Code(s): I25.110 - Atherosclerotic heart disease of [place] coronary artery with unstable angina pectoris (2) ESRD (end stage renal disease) on dialysis Code(s): N18.6 - END STAGE RENAL DISEASE; Z99.2 - DEPENDENCE ON RENAL DIALYSIS Status: Chronic (3) Unstable angina Status: Acute (4) Chronic diastolic heart failure Code(s): I50.32 - CHRONIC DIASTOLIC (CONGESTIVE) HEART FAILURE Status: Chronic (5) Dyslipidemia Code(s): E78.5 - HYPERLIPIDEMIA, UNSPECIFIED Status: Chronic (6) HTN (hypertension) Code(s): I10 - ESSENTIAL (PRIMARY) HYPERTENSION Status: Chronic Qualifiers: Hypertension type: essential hypertension Qualified Code(s): I10 - Essential (primary) hypertension (7) Anemia of renal disease Code(s): D63.1 - ANEMIA IN CHRONIC KIDNEY DISEASE Status: Chronic (8) Moderate mitral regurgitation Code(s): I34.0 - NONRHEUMATIC MITRAL (VALVE) INSUFFICIENCY Status: Chronic (9) S/P CABG (coronary artery bypass graft) Code(s): Z95.1 - PRESENCE OF AORTOCORONARY BYPASS GRAFT Status: Acute - Plan doing well, om po meds, routine QOD HD -: chest tubes still in, drainage decreased -: cont coreg, ASA, eliquis * .
--- NOTE | 2018-12-22 18:10 | PRG ---
DATE OF SERVICE: 12/22/2018 SUBJECTIVE: The patient is seen and examined. Seems to be doing much better, noted with the following vital signs. OBJECTIVE: VITAL SIGNS: Afebrile. Blood pressure 119/71, pulse of 80, respiratory rate of 19, and O2 saturation of 96. HEENT: Unremarkable. CARDIOVASCULAR: First and second heart sounds were heard. RESPIRATORY: Clear to auscultation. DIGESTIVE: Revealed a benign abdomen with positive bowel sounds. EXTREMITIES: No peripheral edema. SKIN: No new gross rash. IMPRESSION: 1. End-stage renal disease, hemodialysis dependent. Peritoneal dialysis on hold for now. 2. Multivessel coronary artery disease, status post bypass surgery. 3. Hypertension. PLAN: 1. We will continue with hemodialysis for now, while placing peritoneal dialysis on hold. 2. Further management to be dependent on the clinical course. Job ID: [id number]
--- NOTE | 2018-12-22 18:33 | PDOC.CTH ---
Cardiology Progress Note - Subjective He is doing better. His pain is better controlled. - Objective Vital Signs Temp Pulse Pulse BP BP Pulse Ox 12/22/18 16:00 98.0 F 12/22/18 13:10 76 80 119/71 115/71 12/22/18 12:00 98.2 F 12/22/18 08:00 98 12/22/18 07:00 98.4 F Weight 232 lb 12.93 oz 12/21/18 12/22/18 12/23/18 06:59 06:59 06:59 Intake Total 1367.2 1360 840 Output Total 1790 475 505 Balance -422.8 885 335 - Physical Examination General/Neuro: alert & oriented x3, NAD Neck: no JVD present Lungs: CTA, unlabored respirations Heart: RRR Abdomen: NT/ND Extremities: + edema B (1+) - Telemetry Telemetry Rhythm: NSR - Labs Result Diagrams: 12/22/18 04:10 12/22/18 04:10 Troponin/CKMB CK-MB (CK-2) 1.3 ng/mL (0-6.6) 12/14/18 17:42 Troponin I 0.038 ng/mL (< 0.028) H 12/14/18 23:50 - Assessment/Plan 1. Unstable angina 2. Severe multivessel CAD. 3. ESRD on PD 4. HTN 5. Left arm weakness. 6. Hx of Afib. 7. S/P CABG 8. S/P Mitral annuloplasty 9. S/P [place] appendage ligation PLAN: - HD per nephrology. - Aspirin/statin. - Low dose BB. - BP still borderline low to start ACEI.
[2018-12-22] MEDS: Zolpidem Tartrate 5 MG TAB PO PRN (20:58)
[2018-12-22] MEDS: Atorvastatin Calcium 10 MG TAB PO SCH (20:58)
[2018-12-23] MEDS: oxyCODONE 5 MG TAB PO PRN ×5 (05:00→23:03)
[2018-12-23 06:54] LABS: Anion Gap 17 mmol/L (10-20); BUN (Urea Nitrogen) 46 mg/dL (8.9-20.6); Calc. Creatinine Clearance 21 mL/min (70-130); Calcium 8.3 mg/dL (7.8-10.44); Carbon Dioxide 25 mmol/L (22-29); Chloride 98 mmol/L (98-107); Estimated GFR-MDRD 9; Glucose 81 mg/dL (70-105); Potassium 4.7 mmol/L (3.5-5.1); Sodium 135 mmol/L (136-145)
--- NOTE | 2018-12-23 07:11 | PDOC.PN ---
- Subjective Encounter Start Date: 12/23/18 Encounter Start Time: 07:09 Subjective: minimal pain, no sob, still has bilat chest tubes - Objective Resuscitation Status - Order Detail: 12/14/18 22:50 Resuscitation Status Routine Resuscitation Status: FULL: Full Resuscitation MAR Reviewed: Yes Vital Signs & Weight: Vital Signs (12 hours) Temp Pulse Resp BP Pulse Ox 12/23/18 04:00 98.8 F 76 18 102/61 93 L 12/22/18 21:30 97.5 F L 76 16 110/61 94 L 12/22/18 20:00 95 Weight Weight 234 lb 6.4 oz Most Recent Monitor Data Heart Rate from ECG 74 NIBP 117/71 NIBP BP-Mean 86 Respiration from ECG 14 SpO2 93 I&O: 12/22/18 12/23/18 12/24/18 06:59 06:59 06:59 Intake Total 1360 1520 Output Total 475 625 Balance 885 895 Result Diagrams: 12/22/18 04:10 12/23/18 04:49 Radiology Reviewed by me: Yes (cxr- cadiomegaly, bilat CT, left pleural effusion ) Phys Exam - Physical Examination Neck: no JVD Respiratory: clear to auscultation bilateral Cardiovascular: RRR, no significant murmur Gastrointestinal: soft, non-tender, positive bowel sounds Musculoskeletal: edema present Dx/Plan (1) CAD (coronary artery disease) Code(s): I25.10 - ATHSCL HEART DISEASE OF [place] CORONARY ARTERY W/O ANG PCTRS Status: Acute Qualifiers: Coronary Disease-Associated Artery/Lesion type: [place] artery [place] vs. transplanted heart: [place] heart Associated angina: with unstable angina Qualified Code(s): I25.110 - Atherosclerotic heart disease of [place] coronary artery with unstable angina pectoris (2) ESRD (end stage renal disease) on dialysis Code(s): N18.6 - END STAGE RENAL DISEASE; Z99.2 - DEPENDENCE ON RENAL DIALYSIS Status: Chronic (3) Unstable angina Status: Acute (4) Chronic diastolic heart failure Code(s): I50.32 - CHRONIC DIASTOLIC (CONGESTIVE) HEART FAILURE Status: Chronic (5) Dyslipidemia Code(s): E78.5 - HYPERLIPIDEMIA, UNSPECIFIED Status: Chronic (6) HTN (hypertension) Code(s): I10 - ESSENTIAL (PRIMARY) HYPERTENSION Status: Chronic Qualifiers: Hypertension type: essential hypertension Qualified Code(s): I10 - Essential (primary) hypertension (7) Anemia of renal disease Code(s): D63.1 - ANEMIA IN CHRONIC KIDNEY DISEASE Status: Chronic (8) Moderate mitral regurgitation Code(s): I34.0 - NONRHEUMATIC MITRAL (VALVE) INSUFFICIENCY Status: Chronic (9) S/P CABG (coronary artery bypass graft) Code(s): Z95.1 - PRESENCE OF AORTOCORONARY BYPASS GRAFT Status: Acute - Plan hopefully chest tubes out today -: cont ASA, statin, b-johnny -: HD per renal * .
[2018-12-23 07:20] LABS: Band 32 % (5-11); Eosinophils 12 % (0-10); Hemoglobin 7.4 g/dL (14.0-18.0); Hypochromia SLIGHT = 6-15 cells (100X) (0-5/hpf); Lymphocytes 17 % (21-51); MDiff Complete? YES; Mean Corpuscular HGB CONC 31.5 g/dL (32.0-36.0); Mean Corpuscular Volume 85.7 fL (78.0-98.0); Monocytes 15 % (0-10); Neutrophil 24 % (42-75); Nucleated RBC 1 % (0); Ovalocytes SLIGHT = 2-5 cells (100X) (0-1/hpf); Platelet Count 83 thou/uL (130-400); Platelet Morphology Comment Appears Decreased; Polychromasia MODERATE = 3-4 cells (100X) (0-2/hpf); RBC Distribution Width 16.7 % (11.5-14.5); Red Blood Cell (RBC) Count 2.76 mill/uL (4.70-6.10); White Blood Cell (WBC) Count 3.3 thou/uL (4.8-10.8)
--- NOTE | 2018-12-23 08:59 | RAD ---
EXAM: CHEST ONE VIEW: History: Post coronary artery bypass graft/MVR. Comparison: 12-22-18 FINDINGS: Recent post op changes with right central line and multiple chest tubes. No evidence for significant pneumothorax. Cardiomegaly with some vascular congestion and prominent proximal artery segments bilat erally. Bilateral pleural effusions. No significant pneumothorax. IMPRESSION: Cardiomegaly with some bilateral vascular congestion, somewhat prominent proximal pulmonary artery se gments and pleural effusions, greater in the left chest. Recent post op changes. No evidence for pneu mothorax. POS: TPC
[2018-12-23] MEDS: Cinacalcet HCl 30 MG TAB PO SCH (09:25)
[2018-12-23] MEDS: Sevelamer Carbonate 800 MG TAB PO SCH ×2 (09:25→18:02)
[2018-12-23] MEDS: Docusate 100 MG CAP PO SCH ×2 (09:26→20:02)
[2018-12-23] MEDS: Aspirin Chewable 81 MG TAB PO SCH (09:26)
[2018-12-23] MEDS: Metoprolol Tartrate 25 MG TAB PO SCH ×2 (09:26→20:02)
[2018-12-23] MEDS: Ondansetron PF 4 MG/2 ML Vial IVP PRN ×2 (10:07→19:55)
--- NOTE | 2018-12-23 12:19 | PDOC.CTH ---
Cardiology Progress Note - Subjective He had his chest tubes pulled out today. He is feeling better. Passing gas but no BM's yet. He states he normally has constipation and his BM's are very solid. - Objective Vital Signs Temp Pulse Resp BP Pulse Ox 12/23/18 08:00 100.1 F H 78 17 109/57 L 94 L 12/23/18 04:00 98.8 F 76 18 102/61 93 L Weight 234 lb 6.4 oz 12/22/18 12/23/18 12/24/18 06:59 06:59 06:59 Intake Total 1360 1520 Output Total 475 625 Balance 885 895 - Physical Examination General/Neuro: alert & oriented x3, NAD Neck: no JVD present Lungs: unlabored respirations Heart: RRR Abdomen: NT/ND Extremities: + edema B (1+) - Telemetry Telemetry Rhythm: NSR - Labs Result Diagrams: 12/23/18 04:49 12/23/18 04:49 Troponin/CKMB CK-MB (CK-2) 1.3 ng/mL (0-6.6) 12/14/18 17:42 Troponin I 0.038 ng/mL (< 0.028) H 12/14/18 23:50 - Assessment/Plan 1. Unstable angina 2. Severe multivessel CAD. 3. ESRD on PD 4. HTN 5. Left arm weakness. 6. Hx of Afib. 7. S/P CABG 8. S/P Mitral annuloplasty 9. S/P MARIA ANTONIA appendage ligation PLAN: - HD per nephrology. - Aspirin/statin. - Low dose BB. - BP still borderline low to start ACEI. - Low grade fever today, no focal source for now. Continue to monitor. - Placement likely will need inpatient rehab. - Will hold on full anticoagulation for now as he had a MARIA ANTONIA ligation.
[2018-12-23 14:29] VITALS: BMI 34.6
--- NOTE | 2018-12-23 19:56 | PRG ---
DATE OF SERVICE: 12/23/2018 SUBJECTIVE: The patient was seen and examined, noted with the following vital signs. OBJECTIVE: VITAL SIGNS: Afebrile, temperature 97.9, pulse 79, respiratory rate of 17, O2 saturations 92%, with blood pressure 134/73. HEENT: Unremarkable. CARDIOVASCULAR: First and second heart sounds were heard. RESPIRATORY: Clear to auscultation. DIGESTIVE: Revealed a benign abdomen. EXTREMITIES: No peripheral edema. SKIN: No new gross rash. LYMPHATICS: No peripheral lymphadenopathy. LABORATORY INVESTIGATION: Significant for hemoglobin of 7.4. Potassium 4.7, creatinine 6.62. IMPRESSION: 1. End-stage renal disease, on hemodialysis. 2. Anemia, partly anemia of chronic disease and acute blood loss anemia, status post surgery. 3. Multivessel coronary artery disease, status post bypass surgery. 4. Hypertension. PLAN: 1. The patient had a chest tube pulled out today. We will like to rest today and then undergo dialysis tomorrow. This is okay. The patient's dialysis can be postponed to tomorrow, and afterwards, the patient can remain on Thursday, Thursday, and Thursday dialysis regimen. 2. P.r.n. transfusion as recommended by Cardiovascular and Cardiology Service. This can be coordinated with dialysis if the patient becomes severely anemic. 3. Further management will be dependent on the clinical course. Meanwhile, the patient to continue with erythropoietin stimulating agents. Job ID: [id number]
[2018-12-23] MEDS: Atorvastatin Calcium 10 MG TAB PO SCH (20:01)
[2018-12-23] MEDS: Zolpidem Tartrate 5 MG TAB PO PRN (21:32)
[2018-12-24] MEDS: ALPRAZolam 1 MG TAB PO PRN ×2 (04:22→21:35)
[2018-12-24 05:36] LABS: Anion Gap 19 mmol/L (10-20); BUN (Urea Nitrogen) 54 mg/dL (8.9-20.6); Calc. Creatinine Clearance 18 mL/min (70-130); Calcium 8.3 mg/dL (7.8-10.44); Carbon Dioxide 25 mmol/L (22-29); Chloride 96 mmol/L (98-107); Estimated GFR-MDRD 8; Glucose 85 mg/dL (70-105); Potassium 4.5 mmol/L (3.5-5.1); Sodium 135 mmol/L (136-145)
[2018-12-24 05:38] LABS: Band 4 % (5-11); Eosinophils 2 % (0-10); Hemoglobin 7.5 g/dL (14.0-18.0); Lymphocytes 32 % (21-51); MDiff Complete? YES; Mean Corpuscular Hemoglobin 27.1 pg (27.0-31.0); Mean Corpuscular Volume 84.7 fL (78.0-98.0); Mean Platelet Volume 9.1 fL (7.4-10.4); Monocytes 11 % (0-10); Neutrophil 51 % (42-75); Platelet Count 91 thou/uL (130-400); Platelet Morphology Comment Appears Decreased; RBC Distribution Width 16.9 % (11.5-14.5); Red Blood Cell (RBC) Count 2.77 mill/uL (4.70-6.10)
[2018-12-24] MEDS: oxyCODONE 5 MG TAB PO PRN ×3 (09:07→17:43)
--- NOTE | 2018-12-24 13:00 | PRG ---
DATE OF SERVICE: 12/24/2018 SUBJECTIVE: The patient is seen and examined at dialysis, noted with the following vital signs. OBJECTIVE: VITAL SIGNS: Afebrile, temperature 97.7, pulse 72, respiratory rate of 17, O2 saturation 92%, and blood pressure 112/69. HEENT: Unremarkable. CARDIOVASCULAR SYSTEM: First and second heart sounds were heard. RESPIRATORY SYSTEM: Clear to auscultation. DIGESTIVE SYSTEM: Revealed a benign abdomen. Positive bowel sounds. EXTREMITIES: No peripheral edema. SKIN: No new gross rash. LYMPHATICS: No peripheral lymphadenopathy. IMPRESSION: 1. End-stage renal disease, hemodialysis dependent. 2. Multivessel disease, status post bypass surgery. 3. Anemia, partly anemia of chronic disease and that of acute blood loss during surgery. PLAN: 1. The patient is known to be on Thursday, Thursday, and Thursday hemodialysis, pending when the patient's cardiac surgery fully healed at that point. Decision might be taken to transition this patient back to peritoneal dialysis. 2. We will defer to the Cardiology and Cardiovascular Service as he relates to the need for transfusion. Therefore now the patient to be on erythropoietin stimulating agent. Job ID: [id number]
[2018-12-24] MEDS: Ondansetron PF 4 MG/2 ML Vial IVP PRN (13:22)
[2018-12-24] MEDS: Sevelamer Carbonate 800 MG TAB PO SCH ×2 (13:24→17:42)
[2018-12-24] MEDS: Cinacalcet HCl 30 MG TAB PO SCH (13:25)
[2018-12-24] MEDS: Metoprolol Tartrate 25 MG TAB PO SCH ×2 (13:28→21:35)
[2018-12-24] MEDS: Aspirin Chewable 81 MG TAB PO SCH (13:29)
[2018-12-24] MEDS: Docusate 100 MG CAP PO SCH ×2 (13:29→21:35)
--- NOTE | 2018-12-24 13:53 | PRG ---
DATE OF SERVICE: 12/24/2018 SUBJECTIVE: The patient is seen and examined at the bedside. He just came back from hemodialysis unit where he was hemodialyzed. OBJECTIVE: VITAL SIGNS: Blood pressure is 112/69, pulse is 72, temperature is 97.7, O2 saturation is 92% on room air, and his respirations are 17 times per minute. HEENT: His head is atraumatic and normocephalic. Eyes are PERRLA. Sclerae are nonicteric. Oral mucosa moist. NECK: He has central line in the right side of the neck. CHEST: Midline post incision scar is healing and forming. LUNGS: Breath sounds are diminished at both bases with bilateral crackles at both bases. HEART: S1 and S2 normal. No S3. No S4. No any murmur. ABDOMEN: Soft, nontender. Bowel sounds are present. No organomegaly. EXTREMITIES: No clubbing, cyanosis, or edema. NEUROLOGICAL: He is alert and oriented x4. There is no any motor or sensory deficit present. Cranial nerves are intact. LABORATORY DATA: Labs showed white count of 4.0, hemoglobin 7.5, hematocrit 23.5, and platelet count is 91,000. Chemistry showed sodium of 135, potassium 4.5, chloride 96, CO2 of 25, BUN 54, and creatinine 7.62. TSH is up to 7.01. IMPRESSION: 1. Unstable angina. Have severe multivessel coronary artery disease, status post coronary artery bypass grafting. 2. End-stage renal disease, on dialysis. 3. Hypertension. 4. History of atrial fibrillation. 5. Status post mitral annuloplasty. 6. Status post left atrial appendage ligation. 7. Dyslipidemia. 8. Hypertension. 9. Anemia of chronic disease with some blood loss during the surgery. 10. Moderate mitral regurgitation. 11. Chronic diastolic heart failure. PLAN: Plan is to continue PT. The rehab transfer is pending. Continue aspirin, statin, and beta-johnny. Continue hemodialysis as per Dr. Lewis. Continue aspirin, atorvastatin, Sensipar, docusate sodium, metoprolol, sevelamer, and we will give him Dulcolax for his constipation. Job ID: [id number]
[2018-12-24] MEDS: Bisacodyl 5 MG TAB PO PRN (17:42)
[2018-12-24] MEDS ORDERED: Epoetin (ESRD) 20,000 UNITS/ML IVP SCH (20:00)
[2018-12-24] MEDS: Atorvastatin Calcium 10 MG TAB PO SCH (21:35)
[2018-12-25] MEDS: oxyCODONE 5 MG TAB PO PRN ×2 (05:49→16:04)
[2018-12-25] MEDS ORDERED: Sodium Chloride 0.9% 10 ML ONE (08:03)
[2018-12-25 08:07] LABS: Hemoglobin 7.9 g/dL (14.0-18.0); Mean Corpuscular HGB CONC 30.8 g/dL (32.0-36.0); Mean Corpuscular Hemoglobin 26.1 pg (27.0-31.0); Mean Corpuscular Volume 84.5 fL (78.0-98.0); Mean Platelet Volume 8.6 fL (7.4-10.4); Platelet Count 120 thou/uL (130-400); RBC Distribution Width 16.6 % (11.5-14.5); Red Blood Cell (RBC) Count 3.04 mill/uL (4.70-6.10); White Blood Cell (WBC) Count 4.3 thou/uL (4.8-10.8)
[2018-12-25 08:19] LABS: Anion Gap 13 mmol/L (10-20); BUN (Urea Nitrogen) 30 mg/dL (8.9-20.6); Calc. Creatinine Clearance 24 mL/min (70-130); Calcium 7.8 mg/dL (7.8-10.44); Carbon Dioxide 30 mmol/L (22-29); Chloride 98 mmol/L (98-107); Estimated GFR-MDRD 11; Glucose 75 mg/dL (70-105); Potassium 3.8 mmol/L (3.5-5.1); Sodium 137 mmol/L (136-145)
[2018-12-25] MEDS: Cinacalcet HCl 30 MG TAB PO SCH (08:31)
[2018-12-25] MEDS: Metoprolol Tartrate 25 MG TAB PO SCH ×2 (08:32→21:09)
[2018-12-25] MEDS: Aspirin Chewable 81 MG TAB PO SCH (08:32)
[2018-12-25] MEDS: Sevelamer Carbonate 800 MG TAB PO SCH ×2 (08:32→16:00)
[2018-12-25] MEDS: Docusate 100 MG CAP PO SCH ×2 (08:32→21:08)
[2018-12-25] MEDS: ALPRAZolam 1 MG TAB PO PRN ×2 (08:41→21:09)
[2018-12-25] MEDS: Bisacodyl 5 MG TAB PO PRN (08:41)
--- NOTE | 2018-12-25 10:02 | PDOC.PN ---
- Subjective Encounter Start Date: 12/25/18 Encounter Start Time: 10:00 Subjective: Seen and examined with no new complaint - Objective Resuscitation Status - Order Detail: 12/14/18 22:50 Resuscitation Status Routine Resuscitation Status: FULL: Full Resuscitation Vital Signs & Weight: Vital Signs (12 hours) Temp Pulse Resp BP Pulse Ox 12/25/18 08:00 99.3 F 77 16 145/69 H 97 12/25/18 03:39 98.2 F 78 17 103/65 93 L Weight Admit Weight 221 lb 5.506 oz Weight 221 lb 8 oz Most Recent Monitor Data Heart Rate from ECG 74 NIBP 117/71 NIBP BP-Mean 86 Respiration from ECG 14 SpO2 93 I&O: 12/24/18 12/25/18 12/26/18 06:59 06:59 07:59 Intake Total 1200 660 Output Total 1000 3800 Balance 200 -3140 Result Diagrams: 12/25/18 07:40 12/25/18 07:40 Phys Exam - Physical Examination Constitutional: NAD HEENT: PERRLA, moist MMs, sclera anicteric, TM's clear Neck: no nodes, no JVD, supple, full ROM Respiratory: no wheezing, no rales, no rhonchi, clear to auscultation bilateral Cardiovascular: RRR, no significant murmur, no rub Gastrointestinal: soft, non-tender, no distention, positive bowel sounds Musculoskeletal: no edema, pulses present Dx/Plan (1) CAD (coronary artery disease) Code(s): I25.10 - ATHSCL HEART DISEASE OF [place] CORONARY ARTERY W/O ANG PCTRS Status: Acute Qualifiers: Coronary Disease-Associated Artery/Lesion type: [place] artery [place] vs. transplanted heart: [place] heart Associated angina: with unstable angina Qualified Code(s): I25.110 - Atherosclerotic heart disease of [place] coronary artery with unstable angina pectoris (2) Elevated troponin Code(s): R74.8 - ABNORMAL LEVELS OF OTHER SERUM ENZYMES Status: Acute Comment: Type II demand ischemia in ESRD (3) Left arm weakness Code(s): R29.898 - OTH SYMPTOMS AND SIGNS INVOLVING THE MUSCULOSKELETAL SYSTEM Status: Acute (4) S/P CABG (coronary artery bypass graft) Code(s): Z95.1 - PRESENCE OF AORTOCORONARY BYPASS GRAFT Status: Acute (5) Unstable angina Status: Acute (6) ESRD (end stage renal disease) on dialysis Code(s): N18.6 - END STAGE RENAL DISEASE; Z99.2 - DEPENDENCE ON RENAL DIALYSIS Status: Chronic (7) Abnormal cardiac enzyme level Code(s): R74.8 - ABNORMAL LEVELS OF OTHER SERUM ENZYMES Status: Acute - Plan plan discussed w/ family, PT/OT, social media developer Rehab placement pending -: Anemia improving s/p Epogen--continue to monitor * .
[2018-12-25 10:58] LABS: Eosinophils 2 % (0-10); Hypochromia MODERATE=16-30 cells (100X) (0-5/hpf); Lymphocytes 14 % (21-51); MDiff Complete? YES; Microcytosis SLIGHT = 6-15 cells (100X) (0-5/hpf); Monocytes 10 % (0-10); Neutrophil 74 % (42-75); Platelet Morphology Comment Appears Decreased; Polychromasia SLIGHT = 2-3 cells (100X) (0-2/hpf)
--- NOTE | 2018-12-25 16:59 | PDOC.CTH ---
Cardiology Progress Note - Subjective No complaints. Feels better overall today. - Objective Vital Signs Temp Pulse Pulse Pulse Resp BP BP 12/25/18 13:17 79 76 130/75 121/71 12/25/18 08:00 99.3 F 77 16 BP Pulse Ox 12/25/18 13:17 12/25/18 08:00 145/69 H 97 Admit Weight 221 lb 5.506 oz Weight 221 lb 8 oz 12/24/18 12/25/18 12/26/18 06:59 06:59 07:59 Intake Total 1200 660 Output Total 1000 3800 Balance 200 -3140 - Physical Examination General/Neuro: alert & oriented x3 Neck: no JVD present Lungs: CTA Heart: RRR Abdomen: no HSM Extremities: other: (no edema) - Telemetry Telemetry Rhythm: SR - Labs Result Diagrams: 12/25/18 07:40 12/25/18 07:40 Troponin/CKMB CK-MB (CK-2) 1.3 ng/mL (0-6.6) 12/14/18 17:42 Troponin I 0.038 ng/mL (< 0.028) H 12/14/18 23:50 - Assessment/Plan 1. Unstable angina 2. CAD s/p CABG, MV annuloplasty and MARIA ANTONIA ligation 3. ESRD on PD 4. HTN 5. Paroxysmal Afib. 6. History of chronic anemia Doing well. Continue PT. ? resume Eliquis. Will d/w Dr. Giang.
[2018-12-25] MEDS: Atorvastatin Calcium 10 MG TAB PO SCH (21:08)
[2018-12-26] MEDS: oxyCODONE 5 MG TAB PO PRN ×3 (06:31→16:57)
[2018-12-26] MEDS ORDERED: Sodium Chloride 0.9% 10 ML ONE (07:39)
[2018-12-26] MEDS: Cinacalcet HCl 30 MG TAB PO SCH (08:37)
[2018-12-26] MEDS: Sevelamer Carbonate 800 MG TAB PO SCH (08:37)
[2018-12-26] MEDS: Metoprolol Tartrate 25 MG TAB PO SCH (08:37)
[2018-12-26] MEDS: Aspirin Chewable 81 MG TAB PO SCH (08:37)
[2018-12-26] MEDS: Docusate 100 MG CAP PO SCH (08:37)
[2018-12-26] MEDS: Bisacodyl 5 MG TAB PO PRN (08:38)
[2018-12-26 08:50] LABS: Anion Gap 13 mmol/L (10-20); BUN (Urea Nitrogen) 38 mg/dL (8.9-20.6); Calc. Creatinine Clearance 19 mL/min (70-130); Calcium 7.6 mg/dL (7.8-10.44); Carbon Dioxide 27 mmol/L (22-29); Chloride 100 mmol/L (98-107); Estimated GFR-MDRD 9; Glucose 79 mg/dL (70-105); Sodium 136 mmol/L (136-145)
[2018-12-26 09:14] LABS: Hemoglobin 7.3 g/dL (14.0-18.0); Mean Corpuscular HGB CONC 30.4 g/dL (32.0-36.0); Mean Corpuscular Hemoglobin 25.5 pg (27.0-31.0); Mean Corpuscular Volume 83.9 fL (78.0-98.0); Mean Platelet Volume 8.2 fL (7.4-10.4); Platelet Count 136 thou/uL (130-400); RBC Distribution Width 16.5 % (11.5-14.5); Red Blood Cell (RBC) Count 2.84 mill/uL (4.70-6.10); White Blood Cell (WBC) Count 4.7 thou/uL (4.8-10.8)
[2018-12-26 11:29] LABS: Eosinophils 7 % (0-10); Hypochromia SLIGHT = 6-15 cells (100X) (0-5/hpf); Lymphocytes 19 % (21-51); MDiff Complete? YES; Macrocytosis SLIGHT = 6-15 cells (100X) (0-5/hpf); Monocytes 19 % (0-10); Neutrophil 53 % (42-75); Platelet Morphology Comment Appears Decreased; Polychromasia SLIGHT = 2-3 cells (100X) (0-2/hpf); Reactive Lymphocytes 2 % (0-10)
--- NOTE | 2018-12-26 12:07 | PDOC.PN ---
- Subjective Encounter Start Date: 12/26/18 Encounter Start Time: 12:05 Patient seen and examined. No new complaints. No overnight events. feels tired. - Objective Resuscitation Status - Order Detail: 12/14/18 22:50 Resuscitation Status Routine Resuscitation Status: FULL: Full Resuscitation MAR Reviewed: Yes Vital Signs & Weight: Vital Signs (12 hours) Temp Pulse Resp BP Pulse Ox 12/26/18 03:20 98.7 F 71 12 131/64 95 Weight Admit Weight 221 lb 5.506 oz Weight 222 lb Most Recent Monitor Data Heart Rate from ECG 74 NIBP 117/71 NIBP BP-Mean 86 Respiration from ECG 14 SpO2 93 I&O: 12/25/18 12/26/18 12/27/18 05:59 06:59 06:59 Intake Total Output Total Balance Result Diagrams: 12/26/18 08:25 12/26/18 08:25 Phys Exam - Physical Examination Constitutional: NAD HEENT: sclera anicteric Neck: supple Respiratory: no wheezing, no rales Cardiovascular: RRR Gastrointestinal: soft Musculoskeletal: no edema Neurological: non-focal, moves all 4 limbs Psychiatric: normal affect, A&O x 3 Skin: no rash Dx/Plan (1) CAD (coronary artery disease) Code(s): I25.10 - ATHSCL HEART DISEASE OF [place] CORONARY ARTERY W/O ANG PCTRS Status: Acute Qualifiers: Coronary Disease-Associated Artery/Lesion type: [place] artery [place] vs. transplanted heart: [place] heart Associated angina: with unstable angina Qualified Code(s): I25.110 - Atherosclerotic heart disease of [place] coronary artery with unstable angina pectoris (2) Elevated troponin Code(s): R74.8 - ABNORMAL LEVELS OF OTHER SERUM ENZYMES Status: Acute Comment: Type II demand ischemia in ESRD (3) S/P CABG (coronary artery bypass graft) Code(s): Z95.1 - PRESENCE OF AORTOCORONARY BYPASS GRAFT Status: Acute (4) ESRD (end stage renal disease) on dialysis Code(s): N18.6 - END STAGE RENAL DISEASE; Z99.2 - DEPENDENCE ON RENAL DIALYSIS Status: Chronic (5) Anemia of renal disease Code(s): D63.1 - ANEMIA IN CHRONIC KIDNEY DISEASE Status: Chronic (6) Atrial fibrillation Code(s): I48.91 - UNSPECIFIED ATRIAL FIBRILLATION Status: Chronic (7) CAD (coronary artery disease) Code(s): I25.10 - ATHSCL HEART DISEASE OF [place] CORONARY ARTERY W/O ANG PCTRS Status: Chronic (8) Gout Code(s): M10.9 - GOUT, UNSPECIFIED Status: Chronic (9) HTN (hypertension) Code(s): I10 - ESSENTIAL (PRIMARY) HYPERTENSION Status: Chronic Qualifiers: Hypertension type: essential hypertension Qualified Code(s): I10 - Essential (primary) hypertension - Plan cont current plan of care, PT/OT, social worker psychiatric * . waiting rehab placement PD per renal.
--- NOTE | 2018-12-26 12:13 | PDOC.CTH ---
Cardiology Progress Note - Subjective No complaints. Walked in [place] a lot this morning. - Objective Vital Signs Temp Pulse Resp BP Pulse Ox 12/26/18 03:20 98.7 F 71 12 131/64 95 Admit Weight 221 lb 5.506 oz Weight 222 lb 12/25/18 12/26/18 12/27/18 05:59 06:59 06:59 Intake Total Output Total Balance - Physical Examination General/Neuro: alert & oriented x3 Neck: no JVD present Lungs: CTA Heart: RRR Abdomen: NT/ND - Telemetry Telemetry Rhythm: SR - Labs Result Diagrams: 12/26/18 08:25 12/26/18 08:25 Troponin/CKMB CK-MB (CK-2) 1.3 ng/mL (0-6.6) 12/14/18 17:42 Troponin I 0.038 ng/mL (< 0.028) H 12/14/18 23:50 - Assessment/Plan 1. Unstable angina 2. CAD s/p CABG, MV annuloplasty and MARIA ANTONIA ligation 3. ESRD on PD 4. HTN 5. Paroxysmal Afib. 6. History of chronic anemia Stable. Continue rehab/walking. No changes today.
[2018-12-26] MEDS ORDERED: Apixaban 2.5 MG TAB PO SCH ×2 (13:30→21:00)
[2018-12-26 17:13] VITALS: TEMP 99.4
[2018-12-26 17:42] VITALS: BP 148/78
--- NOTE | 2018-12-27 04:50 | DIS ---
DATE OF ADMISSION: 12/14/2018 DATE OF DISCHARGE: 12/26/2018 DISCHARGE DIAGNOSES: 1. Unstable angina with multivessel coronary artery disease. 2. Multivessel coronary artery disease, status post coronary artery bypass grafting. 3. End-stage renal disease, on hemodialysis currently. Plan to switch to peritoneal dialysis next week. 4. Hypertension. 5. Atrial fibrillation. 6. Status post mitral annuloplasty. 7. Hyperlipidemia. 8. Chronic anemia. 9. Moderate mitral regurgitation. 10. Chronic diastolic heart failure. 11. Paroxysmal atrial fibrillation. CONSULTS: 1. Dr. Garcia from Pulmonology. 2. Dr. John and Dr. Griffin from Cardiovascular Surgery. PROCEDURES: CABG on 12/20/[address] Griffni and echocardiogram done on 12/17/2018. EF of 55% to 60%. HOSPITAL COURSE: This is a 48-year-old male who is admitted with chest pain and had cardiology and cardiovascular evaluation and was found to have multivessel disease and had a CABG done. Postoperative course was uneventful except for the deconditioning. The patient was also being followed by Pulmonology and Cardiology, and was deemed appropriate for rehab placement and will be transferred to Rehab. The patient also had end-stage renal disease and was on PD, was switched to hemodialysis during this admission and will be switched back to PD. The patient has followup with Dr. Rashid at [facility]. CONDITION ON DISCHARGE: Stable. DISPOSITION: To [facility]. DISCHARGE MEDICATIONS: 1. Xanax 2 mg p.o. b.i.d. p.r.n. 2. Renvela 1600 mg p.o. b.i.d. 3. Metoprolol 12.5 mg p.o. b.i.d. 4. Procrit 7500 units Thursday, Thursday, Thursday. 5. Sensipar 60 mg q.a.m. 6. Lipitor 10 mg at bedtime. 7. Aspirin 81 mg daily. 8. Eliquis 2.5 mg p.o. b.i.d. DISCHARGE FOLLOWUP: Follow up with physicians from Rehab and with primary care physician in 1 to 2 weeks. TIME SPENT: Please note that, we have spent more than 35 minutes coordinating the discharge care of this patient. Job ID: [id number]
== END 2018-12-26 17:10 | DRG 219 ==
LOC: ERS 17:23 → CCU 21:50 → 2NO 12-17 15:28 → CCU 12-20 07:12 → 2NO 12-22 21:38
PROVIDERS: ADMIT Hospitalist; ATTEND Hospitalist
PROC: 3E1M39Z Irrigation of Peritoneal Cavity using Dialysate, Percutaneous Approach (ICD-10-PCS; 2018-12-14)
PROC: 5A1D70Z Performance of Urinary Filtration, Intermittent, Less than 6 Hours Per Day (ICD-10-PCS; 2018-12-17)
PROC: 5A1D70Z Performance of Urinary Filtration, Intermittent, Less than 6 Hours Per Day (ICD-10-PCS; 2018-12-19)
PROC: 02100Z9 Bypass Coronary Artery, One Artery from Left Internal Mammary, Open Approach (ICD-10-PCS; principal; 2018-12-20)
PROC: 02UG0JZ Supplement Mitral Valve with Synthetic Substitute, Open Approach (ICD-10-PCS; 2018-12-20)
PROC: 021109W Bypass Coronary Artery, Two Arteries from Aorta with Autologous Venous Tissue, Open Approach (ICD-10-PCS; 2018-12-20)
PROC: 06BQ4ZZ Excision of Left Saphenous Vein, Percutaneous Endoscopic Approach (ICD-10-PCS; 2018-12-20)
PROC: 5A1221Z Performance of Cardiac Output, Continuous (ICD-10-PCS; 2018-12-20)
PROC: 02L70ZK Occlusion of Left Atrial Appendage, Open Approach (ICD-10-PCS; 2018-12-20)
PROC: 5A1D70Z Performance of Urinary Filtration, Intermittent, Less than 6 Hours Per Day (ICD-10-PCS; 2018-12-21)
PROC: 5A1D70Z Performance of Urinary Filtration, Intermittent, Less than 6 Hours Per Day (ICD-10-PCS; 2018-12-24)
DX: I25.110 Atherosclerotic heart disease of native coronary artery with unstable angina pectoris (principal); N18.6 End stage renal disease; I13.2 Hypertensive heart and chronic kidney disease with heart failure and with stage 5 chronic kidney disease, or end stage renal disease; I50.32 Chronic diastolic (congestive) heart failure; D62 Acute posthemorrhagic anemia; I48.0 Paroxysmal atrial fibrillation; I34.0 Nonrheumatic mitral (valve) insufficiency; D63.1 Anemia in chronic kidney disease; E78.5 Hyperlipidemia, unspecified; F41.9 Anxiety disorder, unspecified; G89.4 Chronic pain syndrome; M1A.9XX0 Chronic gout, unspecified, without tophus (tophi); R29.898 Other symptoms and signs involving the musculoskeletal system; I25.2 Old myocardial infarction; Z99.2 Dependence on renal dialysis; Z86.73 Personal history of transient ischemic attack (TIA), and cerebral infarction without residual deficits; Z88.5 Allergy status to narcotic agent; Z79.01 Long term (current) use of anticoagulants; Z79.899 Other long term (current) drug therapy; Z95.0 Presence of cardiac pacemaker; Z95.5 Presence of coronary angioplasty implant and graft
CPT/HCPCS: 36415; 36416; 36430; 70450; 71045; 71275; 80048; 80053; 81003; 81015; 82553; 82805; 83690; 83735; 83880; 84443; 84484; 85025; 85610; 85652; 85730; 86141; 86850; 86900; 86901; 90935; 90945; 93005; 93010; 93306; 93798; 93880; 94002; 94150; 96365; 96366; 96375; 96376; C1751; G0257; J0670; J1100; J1642; J1644; J1650; J1885; J2001; J2150; J2250; J2270; J2405; J2440; J2704; J2720; J3010; J3370; J3475; J3480; J7050; P9016; P9045; Q4081; Q9966; S0017; S0028

== ENCOUNTER 2020-05-19 07:26 | Observation (INO) | payer MEDICARE, OTHER ==
[2020-05-19] MEDS ORDERED: Labetalol HCl 100 MG/20 ML VIAL ONE (07:47)
[2020-05-19] MEDS ORDERED: Nitroglycerin 2% Ointment 1 INCH/1 GM Packet ONE (07:47)
[2020-05-19 08:06] LABS: #Eosinphils 0.4 thou/uL (0.0-0.7); #Lymphocytes 0.8 thou/uL (1.20-3.40); #Monocytes 0.7 thou/uL (0.11-0.59); #Neutrophils 5.9 thou/uL (1.40-6.50); %Basophils 0.5 % (0.0-1.0); %Eosinophils 4.8 % (0.0-10.0); %Monocytes 9.4 % (0.0-10.0); %Neutrophils 75.3 % (42.0-75.0); Hemoglobin 11.2 g/dL (14.0-18.0); Mean Corpuscular HGB CONC 34.1 g/dL (32.0-36.0); Mean Corpuscular Hemoglobin 30.7 pg (27.0-31.0); Mean Platelet Volume 7.3 fL (7.4-10.4); Platelet Count 139 thou/uL (130-400); RBC Distribution Width 13.2 % (11.5-14.5); Red Blood Cell (RBC) Count 3.64 mill/uL (4.70-6.10); White Blood Cell (WBC) Count 7.8 thou/uL (4.8-10.8)
[2020-05-19 08:26] LABS: ALT (SGPT) 19 U/L (8-55); AST (SGOT) 26 U/L (5-34); Albumin 3.8 g/dL (3.5-5.0); Alkaline Phosphatase 88 U/L (40-110); Anion Gap 22 mmol/L (10-20); BUN (Urea Nitrogen) 98 mg/dL (8.9-20.6); Bilirubin, Total 0.6 mg/dL (0.2-1.2); Calc. Creatinine Clearance 0 mL/min (70-130); Calcium 7.9 mg/dL (7.8-10.44); Carbon Dioxide 18 mmol/L (22-29); Chloride 103 mmol/L (98-107); Estimated GFR-MDRD 4; Globulin 2.3 g/dL (2.4-3.5); Glucose 89 mg/dL (70-105); Lipase 70 U/L (8-78); Magnesium 2.3 mg/dL (1.6-2.6); Potassium 5.2 mmol/L (3.5-5.1); Protein, Total 6.1 g/dL (6.0-8.3); Sodium 138 mmol/L (136-145)
[2020-05-19 08:47] LABS: CKMB 3.7 ng/mL (0-6.6)
[2020-05-19] MEDS ORDERED: Morphine 2 MG/ML SYRINGE ONE (09:03)
--- NOTE | 2020-05-19 09:05 | RAD ---
PORTABLE CHEST: Date: 05/19/2020 PROVIDED CLINICAL HISTORY: Chest pain. FINDINGS: Comparison with 12/23/2018. The cardiac silhouette appears enlarged. Median sternotomy changes, atherosclerosis, and right subcla vian cardiac pacing device are redemonstrated. No focal consolidation, pleural fluid, or pneumothorax apparent. Vascular stent material overlies the left subclavian region. IMPRESSION: No evidence for an acute cardiopulmonary process. POS: HUNTER
[2020-05-19 11:20] LABS: Troponin I 0.041 ng/mL (< 0.028)
[2020-05-19] MEDS ORDERED: Ondansetron PF 4 MG/2 ML Vial IVP PRN (13:42)
[2020-05-19] MEDS ORDERED: Ondansetron ODT 4 MG TAB SL PRN (13:42)
[2020-05-19] MEDS ORDERED: Acetaminophen 325 MG TAB PO PRN (14:41)
[2020-05-19 15:07] LABS: #Eosinphils 0.3 thou/uL (0.0-0.7); #Lymphocytes 0.6 thou/uL (1.20-3.40); #Monocytes 0.5 thou/uL (0.11-0.59); %Basophils 0.6 % (0.0-1.0); %Eosinophils 4.9 % (0.0-10.0); %Lymphocytes 9.9 % (21.0-51.0); %Monocytes 7.9 % (0.0-10.0); %Neutrophils 76.8 % (42.0-75.0); Hemoglobin 11.1 g/dL (14.0-18.0); Mean Corpuscular HGB CONC 33.5 g/dL (32.0-36.0); Mean Corpuscular Hemoglobin 29.9 pg (27.0-31.0); Mean Corpuscular Volume 89.3 fL (78.0-98.0); Platelet Count 129 thou/uL (130-400); Red Blood Cell (RBC) Count 3.72 mill/uL (4.70-6.10); White Blood Cell (WBC) Count 6.5 thou/uL (4.8-10.8)
[2020-05-19 15:27] LABS: Anion Gap 20 mmol/L (10-20); BUN (Urea Nitrogen) 99 mg/dL (8.9-20.6); Calc. Creatinine Clearance 0 mL/min (70-130); Calcium 8.7 mg/dL (7.8-10.44); Carbon Dioxide 20 mmol/L (22-29); Chloride 103 mmol/L (98-107); Estimated GFR-MDRD 4; Glucose 98 mg/dL (70-105); Potassium 5.1 mmol/L (3.5-5.1); Sodium 138 mmol/L (136-145)
[2020-05-19 15:32] LABS: Troponin I 0.044 ng/mL (< 0.028)
[2020-05-19] MEDS ORDERED: Guaifenesin DM 100-10/5 ML UDCUP PO PRN (15:35)
[2020-05-19] MEDS ORDERED: Mineral Oil ENEMA PR PRN (15:35)
--- NOTE | 2020-05-19 15:59 | PDOC.HHP ---
Hospitalist HPI - History of Present Illness chest pressure History of Present Illness: 49yo W/ MHx of CAD s/p CABG (2 years ago), ESRD on peritoneal dialysis, and chronic atrial fibrillation (on anticoagulation) presents with chest pressure. Started yesterday 11pm while was lying in bed and through 2nd bag of peritoneal dialysis. left upper thorax pressure associated with palpitations and left arm numbness, not associated with inspiration or change in position. Lasted for about an hour, then went to sleep, but kept waking up due to pressure, took blood pressure that was > 180 systolic. In the morning, pressure persisted so came to ED on encounter, laying comfortably in bed and complains about chest pressure that has improved. Denies fever, chills, night sweats, cough, pleuritic pain, syncope /presyncope, blood loss, diarrhea, sick contacts, trauma ED Course: In the ED, trop indeterminate and EKG showed mild lateral ST depression. Was admitted to telemetry for further management Hospitalist ROS - Review of Systems All other systems reviewed; all pertinent +/- noted in HPI/Subj Hospitalist History - Past Medical History Source: patient, old records (PAST MEDICAL HISTORY: AFib, NM x2, multiple stents , hypertension, CVA x4 with left-sided deficit, end-stage renal disease, on peritoneal dialysis. PAST SURGICAL HISTORY: The patient has 2 stents in the heart and 1 stent in the arm, CABG. pacemaker, lap band surgery, appendectomy, orthopedic surgery, right knee lateral meniscus repair and tonsillectomy and AV shunt graft to left arm for dialysis and removal of fistula.PSYCHIATRIC HISTORY : Includes anxiety. FAMILY HISTORY: Reviewed, noncontributory to current presentation. SOCIAL HISTORY: No alcohol. No drugs. No smoking history. KNOWN ALLERGIES: To codeine.) - Exam General Appearance: NAD, awake alert Eye: anicteric sclera ENT: normocephalic atraumatic, moist mucosa Neck: no JVD Heart: no murmur, no gallops, irregular Heart - other findings: rate 80-90s Respiratory: CTAB, no wheezes, no rales, no ronchi Gastrointestinal: soft, non-tender, non-distended, normal bowel sounds Gastrointestinal - other findings: peritneal dialysis access unremarkable Psychiatric: normal affect, normal behavior, A&O x 3 Hospitalist Results - Labs Result Diagrams: 05/19/20 14:57 05/19/20 14:57 Lab results: WBC 6.5 thou/uL (4.8-10.8) 05/19/20 14:57 Hgb 11.1 g/dL (14.0-18.0) L 05/19/20 14:57 Hct 33.2 % (42.0-52.0) L 05/19/20 14:57 MCV 89.3 fL (78.0-98.0) 05/19/20 14:57 Plt Count 129 thou/uL (130-400) L 05/19/20 14:57 Neutrophils % 76.8 % (42.0-75.0) H 05/19/20 14:57 Sodium 138 mmol/L (136-145) 05/19/20 14:57 Potassium 5.1 mmol/L (3.5-5.1) 05/19/20 14:57 Chloride 103 mmol/L (98-107) 05/19/20 14:57 Carbon Dioxide 20 mmol/L (22-29) L 05/19/20 14:57 BUN 99 mg/dL (8.9-20.6) H 05/19/20 14:57 Creatinine 13.32 mg/dL (0.7-1.3) H 05/19/20 14:57 Glucose 98 mg/dL (70-105) 05/19/20 14:57 Calcium 8.7 mg/dL (7.8-10.44) 05/19/20 14:57 Total Bilirubin 0.6 mg/dL (0.2-1.2) 05/19/20 07:50 AST 26 U/L (5-34) 05/19/20 07:50 ALT 19 U/L (8-55) 05/19/20 07:50 Alkaline Phosphatase 88 U/L (40-110) 05/19/20 07:50 CK-MB (CK-2) 3.7 ng/mL (0-6.6) 05/19/20 07:50 Troponin I 0.044 ng/mL (< 0.028) H 05/19/20 14:57 Serum Total Protein 6.1 g/dL (6.0-8.3) 05/19/20 07:50 Albumin 3.8 g/dL (3.5-5.0) 05/19/20 07:50 Lipase 70 U/L (8-78) 05/19/20 07:50 - EKG Interpretation EKG: atrial fibrillation, mild lateral ST depression. - Radiology Interpretation Chest x-ray Status: image reviewed by me (no acute cardiopulmonary process) Additional Comment: mild cardiomegaly, sternotomy wanye Hospitalist H&P A/P - Problem (1) Atypical chest pain Code(s): R07.89 - OTHER CHEST PAIN Status: Acute (2) Chronic atrial fibrillation Code(s): I48.20 - CHRONIC ATRIAL FIBRILLATION, UNSPECIFIED Status: Acute (3) ESRD on peritoneal dialysis Code(s): N18.6 - END STAGE RENAL DISEASE; Z99.2 - DEPENDENCE ON RENAL DIALYSIS Status: Acute (4) S/P CABG (coronary artery bypass graft) Code(s): Z95.1 - PRESENCE OF AORTOCORONARY BYPASS GRAFT Status: Acute - Plan Plan: #atypical chest pain -may be due to demand ischemia in context of hypertensive emergency -atypical pain, considering worsening, stress test indicated -restart home regimen including beta johnny -cardiolite stress test #ESRD on peritoneal dialysis -continue peritoneal dialysis nephrology consulted #chronic afib -home beta johnny and anticoag resumed #HTN -started heart healthy diet -resumed home meds -continue to monitor and modify meds PRN Dispo/PPx full code GI PPx: no indication DVT PPx: on therapeutic anticoag
[2020-05-19] MEDS ORDERED: Polyethylene Glycol 3350 17 GM Packet PO SCH (16:45)
[2020-05-19] MEDS: Morphine IR Tab 15 MG TAB PO SCH (17:02)
[2020-05-19] MEDS: Bumetanide 1 MG TAB PO SCH (17:02)
[2020-05-19 18:27] VITALS: BMI 34.2
[2020-05-19] MEDS ORDERED: Atorvastatin Calcium 10 MG TAB PO SCH (21:00)
[2020-05-19] MEDS: Calcitriol 0.25 MCG CAP PO SCH (21:08)
[2020-05-19] MEDS: Metoprolol Tartrate 25 MG TAB PO SCH (21:09)
[2020-05-19] MEDS: Senokot S 8.6-50 MG TAB PO SCH (21:09)
[2020-05-19] MEDS: Zolpidem Tartrate 5 MG TAB PO SCH (21:09)
[2020-05-19] MEDS: Apixaban 2.5 MG TAB PO SCH (21:09)
[2020-05-19] MEDS: ALPRAZolam 1 MG TAB PO SCH (21:09)
[2020-05-20] MEDS: Morphine IR Tab 15 MG TAB PO SCH ×4 (00:49→17:54)
[2020-05-20] MEDS ORDERED: Cinacalcet HCl 30 MG TAB PO SCH (08:00)
[2020-05-20] MEDS: Calcitriol 0.25 MCG CAP PO SCH ×3 (08:30→20:04)
[2020-05-20] MEDS: ALPRAZolam 1 MG TAB PO SCH ×2 (08:30→20:05)
[2020-05-20] MEDS: Bumetanide 1 MG TAB PO SCH ×2 (08:30→17:26)
[2020-05-20] MEDS ORDERED: Lisinopril 5 MG TAB PO SCH ×2 (09:00→13:15)
[2020-05-20] MEDS ORDERED: Aspirin Chewable 81 MG TAB PO SCH (09:00)
[2020-05-20] MEDS ORDERED: ADENOSINE 60 MG/20 ML VIAL ONE (11:07)
[2020-05-20] MEDS: Metoprolol Tartrate 25 MG TAB PO SCH (12:30)
[2020-05-20] MEDS: Senokot S 8.6-50 MG TAB PO SCH ×2 (12:30→20:03)
[2020-05-20] MEDS: Apixaban 2.5 MG TAB PO SCH ×2 (12:30→20:04)
--- NOTE | 2020-05-20 12:41 | NM ---
NM Cardiac Stress W EF WF History: Atypical chest pain Comparison: None. Findings: Stress and rest performed after the intravenous administration of 33 and 9.2 mCi technetium 99m sestamibi, respectively. No scar or ischemia. Calculated ejection fraction is 47%. Moderate septal hypokinesia. Impression: 1. No reversible ischemia. 2. Mildly decreased ejection fraction of 47% with moderate septal hypokinesia.
[2020-05-20] MEDS ORDERED: Metoprolol Tartrate 25 MG TAB PO SCH (13:15)
[2020-05-20 13:34] LABS: Anion Gap 20 mmol/L (10-20); BUN (Urea Nitrogen) 112 mg/dL (8.9-20.6); Calc. Creatinine Clearance 10 mL/min (70-130); Calcium 8.8 mg/dL (7.8-10.44); Carbon Dioxide 22 mmol/L (22-29); Chloride 99 mmol/L (98-107); Estimated GFR-MDRD 4; Glucose 92 mg/dL (70-105); Potassium 4.7 mmol/L (3.5-5.1); Sodium 136 mmol/L (136-145)
[2020-05-20 13:56] LABS: SARS-CoV-2 MS2 Positive; SARS-CoV-2 N Gene Negative; SARS-CoV-2 S Gene Negative; SARS-CoV-2 by NAA Not Detected (NotDetected); SARS-CoV-2 orf1ab Negative
--- NOTE | 2020-05-20 16:29 | CON ---
DATE OF CONSULTATION: IMPRESSION: 1. End-stage renal disease, on peritoneal dialysis. 2. Chest pain, query cause, more or less atypical. PLAN: This patient is to undergo peritoneal dialysis treatment stress study could not get to the patient until this morning. In any case, the patient did undergo stress test and subsequently will be discharged today given the negative stress test. HISTORY OF PRESENT ILLNESS: A 49-year-old gentleman with end-stage renal disease, coronary artery disease, status post CABG, who presented here with chest pain and was evaluated and will be ruled out of any acute coronary syndrome. The need for maintenance peritoneal dialysis necessitated. Renal consultation. PAST MEDICAL HISTORY: Significant for coronary artery disease, status post CABG; end-stage renal disease; chronic atrial fibrillation, on chronic anticoagulation. REVIEW OF SYSTEMS: HEENT: Unremarkable. CARDIOVASCULAR: First and second heart sounds were heard. RESPIRATORY: Clear to auscultation. DIGESTIVE SYSTEM: Revealed a benign abdomen with positive bowel sounds. EXTREMITIES: No peripheral edema. SKIN: No new gross rash. LYMPHATICS: No peripheral lymphadenopathy. PHYSICAL EXAMINATION: GENERAL: The patient was found not to be in any obvious distress, noted with the following vital signs. VITAL SIGNS: Afebrile, temperature 98.2, pulse 85, blood pressure 135/99, respiratory rate of 16, O2 saturation are 98%. HEENT: Unremarkable. CARDIOVASCULAR: First and second heart sounds were heard. RESPIRATORY: Clear to auscultation. DIGESTIVE SYSTEM: Revealed a benign abdomen with positive bowel sounds. EXTREMITIES: No peripheral edema. SKIN: No new gross rash. LYMPHATICS: No peripheral lymphadenopathy. SUMMARY: A 49-year-old gentleman with end-stage renal disease, who presented here with chest pain. Thank you for this consultation. We will follow with you. Job ID: [id number]
[2020-05-20 19:36] VITALS: BP 169/87; TEMP 98.1
[2020-05-20] MEDS: Zolpidem Tartrate 5 MG TAB PO SCH (20:05)
[2020-05-20] MEDS ORDERED: Metoprolol Tartrate 50 MG TAB PO SCH (21:00)
[2020-05-20] MEDS ORDERED: Atorvastatin Calcium 40 MG TAB PO SCH (21:00)
[2020-05-21] MEDS ORDERED: Lisinopril 10 MG TAB PO SCH (09:00)
--- NOTE | 2020-05-21 12:44 | DIS ---
DATE OF ADMISSION: 05/19/2020 DATE OF DISCHARGE: 05/20/2020 HOSPITAL COURSE: Mr. Dominguez is a 49-year-old male with medical history of coronary artery disease, status post CABG, end-stage renal disease, on peritoneal dialysis, who presented with chest pain. He was diagnosed with atypical chest pain due to hypertensive emergency, resulting in demand ischemia. He underwent a stress test that was unremarkable for ischemia. On the day of discharge, he was hemodynamically stable and had no complaints including chest pain that has completely resolved. PHYSICAL EXAMINATION: VITAL SIGNS: Blood pressure 135/99, pulse is 85, respiratory rate 14, oxygen saturation 99% on room air, and temperature 98.5 Fahrenheit. GENERAL: Lying comfortably in bed. Awake and alert. HEENT: Normocephalic, atraumatic. Moist mucosa. NECK: No JVD. HEART: No murmurs or gallops. Has an irregular rhythm (has known chronic atrial fibrillation), rate well controlled at around 80s to 90s. RESPIRATORY: Clear to auscultation bilaterally. No wheezing, rales, or rhonchi. GI: Soft, nontender, nondistended. Normal bowel sounds. Peritoneal dialysis access is unremarkable. PSYCHIATRIC: Proper mood and affect. Alert and oriented x3. MEDICATION LIST: New medications: No new medications. Modified medications: Atorvastatin was increased to 80 mg p.o. daily. Lisinopril was increased from 5 mg to 10 mg p.o. daily, and metoprolol tartrate was increased from 25 mg to 50 mg b.i.d. Old medications: 1. Xanax. 2. Eliquis. 3. Aspirin. 4. Bumetanide. 5. Calcitriol. 6. Cinacalcet. 7. Guaifenesin p.r.n. 8. Morphine p.r.n. 9. Zolpidem. 10. Mineral oil p.r.n. Discontinued medications: No discontinued medications. The patient was scheduled with an appointment with his primary care physician within a week in order to follow up on his blood pressure and coronary artery disease medication adjustment. Job ID: [id number]
== END 2020-05-20 20:26 | disposition home or self-care (01) ==
LOC: ERS 07:26 → ERHOLD 09:23 → 2NO 14:31
PROVIDERS: ADMIT Internal Medicine; ATTEND Internal Medicine
DX: I16.1 Hypertensive emergency (principal); R07.89 Other chest pain; I24.8 Other forms of acute ischemic heart disease; I48.20 Chronic atrial fibrillation, unspecified; I13.2 Hypertensive heart and chronic kidney disease with heart failure and with stage 5 chronic kidney disease, or end stage renal disease; N18.6 End stage renal disease; I50.9 Heart failure, unspecified; I25.10 Atherosclerotic heart disease of native coronary artery without angina pectoris; I25.2 Old myocardial infarction; F41.9 Anxiety disorder, unspecified; I69.354 Hemiplegia and hemiparesis following cerebral infarction affecting left non-dominant side; Z79.01 Long term (current) use of anticoagulants; Z79.82 Long term (current) use of aspirin; Z79.899 Other long term (current) drug therapy; Z88.5 Allergy status to narcotic agent; Z95.1 Presence of aortocoronary bypass graft; Z98.84 Bariatric surgery status; Z99.2 Dependence on renal dialysis; Z20.828 Contact with and (suspected) exposure to other viral communicable diseases
CPT/HCPCS: 71045; 78452; 80048 ×2; 80053; 82553; 83690; 83735; 84100; 84484 ×2; 85025 ×2; 93005; 93017; 96374; 96375; 97139 ×2; 99285; A9500; U0003; 36415; 87635; G0378; J0153; J2270

== ENCOUNTER 2020-10-17 15:46 | Emergency (ER) | payer MEDICARE ==
[~2020-10-17 15:46] MED LIST changes: -ISOVUE-370 76%-LOCM 1 ML ONE; +Iopamidol-370 76% 500 ML 1 ML ONE
[2020-10-17 16:48] LABS: #Eosinphils 0.3 thou/uL (0.0-0.7); #Lymphocytes 0.6 thou/uL (1.20-3.40); #Monocytes 0.6 thou/uL (0.11-0.59); #Neutrophils 5.7 thou/uL (1.40-6.50); %Eosinophils 4.3 % (0.0-10.0); %Neutrophils 79.6 % (42.0-75.0); Hemoglobin 9.8 g/dL (14.0-18.0); Mean Corpuscular HGB CONC 32.5 g/dL (32.0-36.0); Mean Corpuscular Volume 92.3 fL (78.0-98.0); Mean Platelet Volume 7.7 fL (7.4-10.4); Platelet Count 119 thou/uL (130-400); RBC Distribution Width 12.7 % (11.5-14.5); Red Blood Cell (RBC) Count 3.28 mill/uL (4.70-6.10); White Blood Cell (WBC) Count 7.2 thou/uL (4.8-10.8)
[2020-10-17 17:07] LABS: ALT (SGPT) 15 U/L (8-55); AST (SGOT) 20 U/L (5-34); Albumin 3.6 g/dL (3.5-5.0); Alkaline Phosphatase 105 U/L (40-110); Anion Gap 21 mmol/L (10-20); BUN (Urea Nitrogen) 82 mg/dL (8.9-20.6); Bilirubin, Total 0.5 mg/dL (0.2-1.2); CK (CPK) 68 U/L (30-200); Calc. Creatinine Clearance 0 mL/min (70-130); Calcium 9.5 mg/dL (7.8-10.44); Carbon Dioxide 24 mmol/L (22-29); Chloride 99 mmol/L (98-107); Globulin 2.8 g/dL (2.4-3.5); Glucose 87 mg/dL (70-105); Lipase 24 U/L (8-78); Potassium 5.8 mmol/L (3.5-5.1); Protein, Total 6.4 g/dL (6.0-8.3); Sodium 138 mmol/L (136-145)
--- NOTE | 2020-10-17 17:21 | ULT ---
Right upper extremity arterial Doppler ultrasound: 10/17/2020 COMPARISON: None HISTORY: Hypertension with right arm and finger tingling TECHNIQUE: Multiplanar grayscale sonographic imaging of the arterial structures of the right upper ex tremity obtained with Doppler interrogation including color flow and spectral analysis FINDINGS: The right common carotid artery, right subclavian artery, and right axillary artery are pat ent and demonstrate appropriate waveforms. Right brachial artery, right radial artery, and right ulnar artery are patent with normal arterial waveforms. IMPRESSION: Unremarkable arterial Doppler ultrasound of the right upper extremity.
[2020-10-17 17:29] LABS: CKMB 3.2 ng/mL (0-6.6)
--- NOTE | 2020-10-17 18:32 | RAD ---
AP CHEST: 10/17/20 HISTORY: Chest pain. COMPARISON: 05/19/20. Cardiomegaly with postop sternotomy changes again noted. Vascular markings upper normal and stable. N o infiltrate or significant effusion. Single pacemaker lead is unchanged. IMPRESSION: Cardiomegaly. No acute process or significant interval change. POS: AGW
--- NOTE | 2020-10-17 21:44 | CT ---
CT ANGIOGRAM RIGHT UPPER EXTREMITY WITH IV CONTRAST AND 3D MIP RECONSTRUCTIONS 10/17/20 PROVIDED CLINICAL HISTORY: Right arm pain. FINDINGS: The right subclavian, axillary and brachial veins demonstrate an essentially normal CT angiographic a ppearance with the exception of occasional vascular calcifications. Subsequent to the bifurcation of the brachial artery, there is extensive multifocal circumferential i ntimal calcium involving the radial and ulnar arteries. There is multifocal atherosclerotic vascular calcification involving the radial and ulnar arteries with associated areas of apparent high grade st enosis/short segment occlusion. There is contrast material within the wrist and hand circulation. Regional muscular density appears normal. The osseous structures demonstrate no concerning lytic or b lastic lesions. There is no evidence for axillary lymph node enlargement. There are occasional patchy foci of somewhat nodular ground glass opacity involving the right upper lobe. IMPRESSION: 1. Extensive atherosclerotic vascular calcification involving the radial and ulnar arteries, wit h multifocal high grade calcified stenoses/short segment occlusions. Contrast material is present wit hin the distal arterial structures of the wrist and hand. 2. Patchy foci of parenchymal opacity involving the right upper lobe suspicious for infectious p neumonitis. POS: HUNTER
--- NOTE | 2020-10-20 15:12 | EKG ---
Test Reason : Blood Pressure : / mmHG Vent. Rate : 100 BPM Atrial Rate : 102 BPM P-R Int : 000 ms QRS Dur : 120 ms QT Int : 374 ms P-R-T Axes : 000 095 -08 degrees QTc Int : 482 ms Atrial fibrillation Right bundle branch block Anterior infarct , age undetermined Abnormal ECG Confirmed by KIP VILLATORO DO ([id number]), newspaper or periodical editor GERDA MUNOZ ([id number] on 10/20/2020 3:12:26 PM Referred By: Confirmed By:KIP VILLATORO DO
== END 2020-10-17 20:42 | disposition home or self-care (01) ==
LOC: ERS 15:46
DX: I10 Essential (primary) hypertension (principal); R20.2 Paresthesia of skin; I48.91 Unspecified atrial fibrillation; I25.2 Old myocardial infarction; Z86.73 Personal history of transient ischemic attack (TIA), and cerebral infarction without residual deficits; Z79.01 Long term (current) use of anticoagulants; Z79.82 Long term (current) use of aspirin; Z79.899 Other long term (current) drug therapy
CPT/HCPCS: 36415; 71045; 80053; 82550; 82553; 83690; 84484; 85025; 93005; 93923; 94760; Q9967

== ENCOUNTER 2021-07-04 01:32 | Inpatient (IN) | payer MEDICARE ==
[2021-07-04] MEDS ORDERED: Ondansetron PF 4 MG/2 ML Vial IVP PRN (03:15)
[2021-07-04] MEDS ORDERED: Lactated Ringer's 1,000 ML IV SCH (03:15)
[2021-07-04] MEDS ORDERED: Ondansetron ODT 4 MG TAB SL PRN (03:15)
[2021-07-04] MEDS ORDERED: Acetaminophen 325 MG TAB PO PRN (03:15)
[2021-07-04] MEDS ORDERED: Norepinephrine 8 MG/0.9% NS 250 ML IVPB SCH (03:15)
[2021-07-04] MEDS ORDERED: Norepinephrine 8 MG/0.9% NS 250 ML ONE (03:20)
[2021-07-04 03:43] LABS: Troponin I 0.218 ng/mL (< 0.028)
[2021-07-04] MEDS ORDERED: Acetaminophen 650 MG Suppository PR PRN (04:53)
[2021-07-04 04:58] LABS: SARS-CoV-2 NAA Rapid Test Not Detected (NotDetected)
[2021-07-04 05:44] LABS: #Basophils 0.1 thou/uL (0.0-0.2); #Eosinphils 0.3 thou/uL (0.0-0.7); #Lymphocytes 1.1 thou/uL (1.20-3.40); #Monocytes 0.5 thou/uL (0.11-0.59); #Neutrophils 5.1 thou/uL (1.40-6.50); %Basophils 0.8 % (0.0-1.0); %Eosinophils 3.9 % (0.0-10.0); %Lymphocytes 15.7 % (21.0-51.0); %Monocytes 7.3 % (0.0-10.0); %Neutrophils 72.4 % (42.0-75.0); Hemoglobin 12.8 g/dL (14.0-18.0); Mean Corpuscular HGB CONC 32.5 g/dL (32.0-36.0); Mean Corpuscular Hemoglobin 29.8 pg (27.0-31.0); Mean Corpuscular Volume 91.6 fL (78.0-98.0); Mean Platelet Volume 8.5 fL (7.4-10.4); Platelet Count 95 thou/uL (130-400); RBC Distribution Width 14.4 % (11.5-14.5); Red Blood Cell (RBC) Count 4.31 mill/uL (4.70-6.10); White Blood Cell (WBC) Count 7.1 thou/uL (4.8-10.8)
[2021-07-04 05:58] LABS: Anion Gap 17 mmol/L (10-20); BUN (Urea Nitrogen) 39 mg/dL (8.9-20.6); Calc. Creatinine Clearance 9 mL/min (70-130); Calcium 8.2 mg/dL (7.8-10.44); Carbon Dioxide 20 mmol/L (22-29); Chloride 103 mmol/L (98-107); Glucose 92 mg/dL (70-105); Potassium 4.1 mmol/L (3.5-5.1); Sodium 136 mmol/L (136-145)
[2021-07-04 07:15] LABS: Troponin I 0.182 ng/mL (< 0.028)
[2021-07-04 07:41] LABS: INR-International Normal Ratio 1.1; PTT 30.6 sec (22.9-36.1); Prothrombin Time 13.9 sec (12.0-14.7)
[2021-07-04] MEDS: Heparin 5,000 UNITS/ML VIAL SC SCH (07:51)
[2021-07-04] MEDS ORDERED: cefTRIAXone\\ROCEPHIN 1 GM VIAL ONE (08:44)
[2021-07-04] MEDS: cefTRIAXone\\ROCEPHIN 1 GM in Sodium Chloride 0.9% 100 ML IVPB SCH (08:51)
[2021-07-04] MEDS: Midodrine HCl 5 MG TAB PO SCH ×3 (08:51→21:36)
[2021-07-04] MEDS ORDERED: Sodium Chloride 0.9% 1,000 ML IV SCH (10:30)
[2021-07-04] MEDS: Morphine 2 MG/ML VIAL SLOW IVP PRN ×2 (17:13→21:37)
[2021-07-04] MEDS: Apixaban 2.5 MG TAB PO SCH (21:36)
[2021-07-05 06:24] LABS: #Basophils 0.1 thou/uL (0.0-0.2); #Eosinphils 0.2 thou/uL (0.0-0.7); #Lymphocytes 0.8 thou/uL (1.20-3.40); #Monocytes 0.5 thou/uL (0.11-0.59); #Neutrophils 3.9 thou/uL (1.40-6.50); %Eosinophils 4.1 % (0.0-10.0); %Monocytes 8.7 % (0.0-10.0); %Neutrophils 72.1 % (42.0-75.0); Hemoglobin 12.7 g/dL (14.0-18.0); Mean Corpuscular HGB CONC 32.2 g/dL (32.0-36.0); Mean Corpuscular Hemoglobin 29.3 pg (27.0-31.0); Mean Corpuscular Volume 90.9 fL (78.0-98.0); Platelet Count 107 thou/uL (130-400); RBC Distribution Width 14.7 % (11.5-14.5); Red Blood Cell (RBC) Count 4.35 mill/uL (4.70-6.10); White Blood Cell (WBC) Count 5.4 thou/uL (4.8-10.8)
[2021-07-05] MEDS: Morphine 2 MG/ML VIAL SLOW IVP PRN ×2 (06:28→21:18)
[2021-07-05 06:33] LABS: Phosphorus 7.7 mg/dL (2.3-4.7)
[2021-07-05 06:36] LABS: Anion Gap 19 mmol/L (10-20); BUN (Urea Nitrogen) 42 mg/dL (8.9-20.6); Calc. Creatinine Clearance 10 mL/min (70-130); Calcium 8.6 mg/dL (7.8-10.44); Carbon Dioxide 21 mmol/L (22-29); Chloride 103 mmol/L (98-107); Glucose 82 mg/dL (70-105); Magnesium 1.9 mg/dL (1.6-2.6); Potassium 4.2 mmol/L (3.5-5.1); Sodium 139 mmol/L (136-145)
[2021-07-05 07:31] LABS: Phosphorus 7.8 mg/dL (2.3-4.7)
[2021-07-05] MEDS: cefTRIAXone\\ROCEPHIN 1 GM in Sodium Chloride 0.9% 100 ML IVPB SCH (09:24)
[2021-07-05] MEDS: Midodrine HCl 5 MG TAB PO SCH ×3 (09:24→21:18)
[2021-07-05] MEDS: Apixaban 2.5 MG TAB PO SCH (09:24)
[2021-07-05] MEDS: Sevelamer Carbonate 800 MG TAB PO SCH (19:09)
[2021-07-05] MEDS: Apixaban 5 MG TAB PO SCH (21:17)
[2021-07-06] MEDS ORDERED: Cosyntropin 250 MCG VIAL SLOW IVP SCH (08:45)
[2021-07-06] MEDS: Calcitriol 0.25 MCG CAP PO SCH (09:40)
[2021-07-06] MEDS: Apixaban 5 MG TAB PO SCH ×2 (09:40→21:24)
[2021-07-06] MEDS: cefTRIAXone\\ROCEPHIN 1 GM in Sodium Chloride 0.9% 100 ML IVPB SCH (09:40)
[2021-07-06] MEDS: Polyethylene Glycol 3350 17 GM Packet PO SCH ×2 (09:40→21:25)
[2021-07-06] MEDS: Sevelamer Carbonate 800 MG TAB PO SCH ×3 (09:40→17:22)
[2021-07-06] MEDS: Midodrine HCl 5 MG TAB PO SCH ×3 (09:41→21:25)
[2021-07-06] MEDS: Morphine 2 MG/ML VIAL SLOW IVP PRN ×3 (12:00→21:25)
[2021-07-07] MEDS: Morphine 4 MG/ML VIAL SLOW IVP PRN ×4 (03:08→20:57)
[2021-07-07] MEDS: Calcitriol 0.25 MCG CAP PO SCH (08:58)
[2021-07-07] MEDS: Apixaban 5 MG TAB PO SCH ×2 (08:58→20:56)
[2021-07-07] MEDS: Sevelamer Carbonate 800 MG TAB PO SCH ×4 (08:58→18:29)
[2021-07-07] MEDS: Polyethylene Glycol 3350 17 GM Packet PO SCH ×2 (08:59→20:57)
[2021-07-07] MEDS: cefTRIAXone\\ROCEPHIN 1 GM in Sodium Chloride 0.9% 100 ML IVPB SCH (09:14)
[2021-07-07] MEDS: Midodrine HCl 5 MG TAB PO SCH ×2 (09:28→16:52)
[2021-07-07 11:05] LABS: Anion Gap 20 mmol/L (10-20); BUN (Urea Nitrogen) 44 mg/dL (8.9-20.6); BUN/Creatinine Ratio 3.24; Calc. Creatinine Clearance 9 mL/min (70-130); Calcium 9.5 mg/dL (7.8-10.44); Carbon Dioxide 24 mmol/L (22-29); Chloride 98 mmol/L (98-107); Glucose 97 mg/dL (70-105); Phosphorus 8.6 mg/dL (2.3-4.7); Sodium 138 mmol/L (136-145)
[2021-07-08] MEDS: Morphine 4 MG/ML VIAL SLOW IVP PRN ×2 (03:03→08:54)
[2021-07-08 05:18] LABS: Hemoglobin 11.1 g/dL (14.0-18.0); Mean Corpuscular HGB CONC 32.9 g/dL (32.0-36.0); Mean Corpuscular Hemoglobin 29.7 pg (27.0-31.0); Mean Corpuscular Volume 90.5 fL (78.0-98.0); Mean Platelet Volume 8.6 fL (7.4-10.4); Platelet Count 90 thou/uL (130-400); RBC Distribution Width 14.6 % (11.5-14.5); Red Blood Cell (RBC) Count 3.73 mill/uL (4.70-6.10); White Blood Cell (WBC) Count 5.2 thou/uL (4.8-10.8)
[2021-07-08 05:21] VITALS: TEMP 97.9
[2021-07-08 05:22] VITALS: BMI 35.8
[2021-07-08 05:38] LABS: Albumin 2.5 g/dL (3.5-5.0); Anion Gap 15 mmol/L (10-20); BUN (Urea Nitrogen) 38 mg/dL (8.9-20.6); BUN/Creatinine Ratio 2.98; Calc. Creatinine Clearance 10 mL/min (70-130); Calcium 8.9 mg/dL (7.8-10.44); Carbon Dioxide 24 mmol/L (22-29); Chloride 98 mmol/L (98-107); Glucose 83 mg/dL (70-105); Phosphorus 7.7 mg/dL (2.3-4.7); Sodium 134 mmol/L (136-145)
[2021-07-08 05:59] LABS: Potassium 2.8 mmol/L (3.5-5.1)
[2021-07-08] MEDS ORDERED: Potassium Chloride 20 MEQ TAB PO SCH ×2 (06:15→10:00)
[2021-07-08 06:33] LABS: Magnesium 1.9 mg/dL (1.6-2.6)
[2021-07-08 07:28] VITALS: BP 101/67
[2021-07-08] MEDS: cefTRIAXone\\ROCEPHIN 1 GM in Sodium Chloride 0.9% 100 ML IVPB SCH (08:54)
[2021-07-08] MEDS: Polyethylene Glycol 3350 17 GM Packet PO SCH (08:54)
[2021-07-08] MEDS: Calcitriol 0.25 MCG CAP PO SCH (08:55)
[2021-07-08] MEDS: Apixaban 5 MG TAB PO SCH (08:55)
[2021-07-08] MEDS: Sevelamer Carbonate 800 MG TAB PO SCH (08:55)
[2021-07-08] MEDS ORDERED: Fludrocortisone Acetate 0.1 MG TAB PO SCH (09:00)
[2021-07-09] MEDS ORDERED: Atorvastatin Calcium 10 MG TAB PO SCH (09:00)
[2021-07-09] MEDS ORDERED: Aspirin 325 MG TAB PO SCH (09:00)
== END 2021-07-08 11:43 | disposition home or self-care (01) | DRG 640 ==
LOC: ERS 01:32 → ERHOLD 02:46 → 2NO 16:43
PROVIDERS: ADMIT Student in an Organized Health Care Education/Training Program; ATTEND Family Medicine
PROC: 3E043XZ Introduction of Vasopressor into Central Vein, Percutaneous Approach (ICD-10-PCS; principal; 2021-07-04)
DX: E86.9 Volume depletion, unspecified (principal); N18.6 End stage renal disease; I13.0 Hypertensive heart and chronic kidney disease with heart failure and stage 1 through stage 4 chronic kidney disease, or unspecified chronic kidney disease; N25.81 Secondary hyperparathyroidism of renal origin; E27.40 Unspecified adrenocortical insufficiency; I69.954 Hemiplegia and hemiparesis following unspecified cerebrovascular disease affecting left non-dominant side; Z20.822 Contact with and (suspected) exposure to COVID-19; I50.9 Heart failure, unspecified; F41.9 Anxiety disorder, unspecified; R79.89 Other specified abnormal findings of blood chemistry; I95.1 Orthostatic hypotension; I25.5 Ischemic cardiomyopathy; E83.59 Other disorders of calcium metabolism; I25.10 Atherosclerotic heart disease of native coronary artery without angina pectoris; I48.0 Paroxysmal atrial fibrillation; D69.6 Thrombocytopenia, unspecified; M10.9 Gout, unspecified; E83.39 Other disorders of phosphorus metabolism; E87.6 Hypokalemia; Z95.0 Presence of cardiac pacemaker; Z95.1 Presence of aortocoronary bypass graft; Z90.49 Acquired absence of other specified parts of digestive tract; Z95.2 Presence of prosthetic heart valve; Z88.5 Allergy status to narcotic agent; Z79.01 Long term (current) use of anticoagulants; Z79.82 Long term (current) use of aspirin; Z79.899 Other long term (current) drug therapy; I25.2 Old myocardial infarction; Z99.2 Dependence on renal dialysis; Z95.5 Presence of coronary angioplasty implant and graft; Z91.81 History of falling
CPT/HCPCS: 36415; 80048; 80069; 80400; 82024; 82306; 82533; 83735; 83970; 84100; 84484; 85025; 85027; 85610; 85730; 87040; 90945; 93306; G0257; J0696; J0834; J2270; J3490; J7050; J7120; U0002

== ENCOUNTER 2021-08-30 21:18 | Observation (INO) | payer MEDICARE ==
[2021-08-30 23:01] VITALS: BMI 31.1
[2021-08-30] MEDS ORDERED: Senokot S 8.6-50 MG TAB PO PRN (23:13)
[2021-08-30] MEDS ORDERED: Acetaminophen 325 MG TAB PO PRN (23:14)
[2021-08-30] MEDS ORDERED: HYDROcodone/Acetaminophen 10/325 mg Tablet PO PRN (23:14)
[2021-08-30] MEDS ORDERED: Ondansetron ODT 4 MG TAB PO PRN (23:15)
[2021-08-30] MEDS: HYDROcodone/Acetaminophen 10/325 mg Tablet PO PRN (23:30)
[2021-08-31] MEDS ORDERED: Ondansetron ODT 4 MG TAB PO PRN (02:00)
[2021-08-31] MEDS ORDERED: oxyCODONE/Acetaminophen 5 mg/325 mg Tablet PO PRN (02:11)
[2021-08-31] MEDS ORDERED: Zolpidem Tartrate 5 MG TAB PO PRN (02:15)
[2021-08-31 02:37] LABS: #Eosinphils 0.1 thou/uL (0.0-0.7); #Lymphocytes 1.2 thou/uL (1.20-3.40); #Monocytes 0.8 thou/uL (0.11-0.59); #Neutrophils 5.6 thou/uL (1.40-6.50); %Basophils 0.5 % (0.0-1.0); %Eosinophils 1.6 % (0.0-10.0); %Lymphocytes 15.8 % (21.0-51.0); %Monocytes 10.1 % (0.0-10.0); Hemoglobin 10.9 g/dL (14.0-18.0); Mean Corpuscular HGB CONC 33.5 g/dL (32.0-36.0); Mean Corpuscular Hemoglobin 32.2 pg (27.0-31.0); Mean Corpuscular Volume 96.2 fL (78.0-98.0); Platelet Count 128 thou/uL (130-400); RBC Distribution Width 15.3 % (11.5-14.5); Red Blood Cell (RBC) Count 3.37 mill/uL (4.70-6.10); White Blood Cell (WBC) Count 7.8 thou/uL (4.8-10.8)
[2021-08-31 02:59] LABS: Anion Gap 26 mmol/L (10-20); BUN (Urea Nitrogen) 44 mg/dL (8.9-20.6); Calc. Creatinine Clearance 8 mL/min (70-130); Carbon Dioxide 17 mmol/L (22-29); Chloride 92 mmol/L (98-107); Glucose 79 mg/dL (70-105); Potassium 4.7 mmol/L (3.5-5.1); Sodium 130 mmol/L (136-145)
[2021-08-31 03:04] LABS: Troponin I 0.075 ng/mL (< 0.028)
[2021-08-31] MEDS: Nitroglycerin 2% Ointment 1 INCH/1 GM Packet TOP SCH ×2 (06:26→16:35)
[2021-08-31] MEDS ORDERED: Non-Formulary Item 1 EACH (Lactulose [Lactulose] 10 GM/15 ML Solution) PO PRN (07:27)
[2021-08-31 08:28] LABS: Magnesium 1.9 mg/dL (1.6-2.6)
[2021-08-31] MEDS ORDERED: Non-Formulary Item 1 EACH (Atorvastatin Calcium [Atorvastatin Calcium] 80 MG Tablet) PO SCH (09:00)
[2021-08-31] MEDS ORDERED: ALPRAZolam 1 MG TAB PO SCH (09:00)
[2021-08-31] MEDS ORDERED: Apixaban 5 MG TAB PO SCH ×2 (09:00)
[2021-08-31] MEDS ORDERED: Aspirin 325 MG TAB PO SCH (09:00)
[2021-08-31] MEDS ORDERED: ALPRAZOLAM 2 MG PO SCH (09:00)
[2021-08-31] MEDS ORDERED: Aspirin Chewable 81 MG TAB PO SCH ×3 (09:00)
[2021-08-31] MEDS ORDERED: Calcitriol 0.25 MCG CAP PO SCH (09:00)
[2021-08-31] MEDS ORDERED: Famotidine 20 MG TAB PO SCH (09:00)
[2021-08-31] MEDS ORDERED: Atorvastatin Calcium 10 MG TAB PO SCH (09:00)
[2021-08-31] MEDS ORDERED: Fludrocortisone Acetate 0.1 MG TAB PO SCH (09:00)
[2021-08-31] MEDS: Sevelamer Carbonate 800 MG TAB PO SCH ×2 (09:07→16:35)
[2021-08-31] MEDS: HYDROcodone/Acetaminophen 10/325 mg Tablet PO PRN (15:04)
[2021-08-31 16:24] LABS: SARS-CoV-2 PCR by NAA Not Detected (NotDetected)
[2021-08-31 16:36] VITALS: BP 132/77; TEMP 98.8
[2021-08-31] MEDS ORDERED: ALPRAZolam 1 MG TAB PO PRN (16:43)
== END 2021-08-31 18:11 | disposition home or self-care (01) ==
LOC: 2SW 22:43
PROVIDERS: ADMIT Student in an Organized Health Care Education/Training Program; ATTEND Nurse Practitioner Family
DX: R07.89 Other chest pain (principal); I12.0 Hypertensive chronic kidney disease with stage 5 chronic kidney disease or end stage renal disease; N18.6 End stage renal disease; D63.1 Anemia in chronic kidney disease; I25.10 Atherosclerotic heart disease of native coronary artery without angina pectoris; I48.21 Permanent atrial fibrillation; I25.5 Ischemic cardiomyopathy; I95.1 Orthostatic hypotension; R74.8 Abnormal levels of other serum enzymes; R77.8 Other specified abnormalities of plasma proteins; E87.6 Hypokalemia; E87.1 Hypo-osmolality and hyponatremia; Z20.822 Contact with and (suspected) exposure to COVID-19; Z99.2 Dependence on renal dialysis; Z91.15 Patient's noncompliance with renal dialysis; Z95.1 Presence of aortocoronary bypass graft; Z79.01 Long term (current) use of anticoagulants; Z79.82 Long term (current) use of aspirin; Z95.810 Presence of automatic (implantable) cardiac defibrillator; Z79.52 Long term (current) use of systemic steroids; Z79.899 Other long term (current) drug therapy; Z88.5 Allergy status to narcotic agent; Z86.73 Personal history of transient ischemic attack (TIA), and cerebral infarction without residual deficits
CPT/HCPCS: 80048; 83735; 84484; 85025; U0003; U0005; 36415; G0378